=== PATIENT | female | born 1940 | race Caucasian/White ===

== ENCOUNTER 2022-10-13 12:09 | Outpatient (CLI) | payer MEDICARE, SELFPAY ==
--- NOTE | ~2022-10-13 | XR_ITS ---
Left foot Technique: AP, oblique, and lateral views were obtained. Clinical History: Pain Findings: No acute fracture or dislocation is seen. Osseous alignment is anatomic. Joint spaces are p reserved without erosive or degenerative change. Mild soft tissue swelling noted dorsally over the fo refoot. Impression: No fracture or dislocation. Mild dorsal soft tissue swelling at the forefoot. Reviewed, dictated and finalized at location [] RESS SUPERVISOR Impression: No fracture or dislocation. Mild dorsal soft tissue swelling at the forefoot.
--- NOTE | ~2022-10-13 | XR_ITS ---
Left ankle Technique: AP, oblique, and lateral views were obtained. Clinical History: Pain Findings: No acute fracture or dislocation is seen. Osseous alignment is anatomic. Ankle mortise and other visualized joint spaces are preserved. Mild diffuse subcutaneous soft tissue edema noted. Impression: No fracture or dislocation. Mild diffuse subcutaneous soft tissue edema. Reviewed, dictated and finalized at location [] NESS INTELLIGENCE MANAGER Impression: No fracture or dislocation. Mild diffuse subcutaneous soft tissue edema.
--- NOTE | ~2022-10-13 | US_ITS ---
EXAMINATION: US venous doppler [facility] DATE: 10/13/2022 13:27 INDICATION: Bilateral lower limb swelling TECHNIQUE: Turner scale images without and with compression and Doppler images of the bilateral lower e xtremity veins were obtained. COMPARISON: None FINDINGS: The right common femoral vein, profunda femoral vein, femoral vein, popliteal vein, peroneal trunk, p osterior tibial veins, and greater saphenous vein are patent. The left common femoral vein, profunda femoral vein, femoral vein, popliteal vein, peroneal trunk, po sterior tibial veins, and greater saphenous vein are patent. IMPRESSION: 1. Patent bilateral lower extremity veins. No evidence of deep venous thrombosis. Reviewed, dictated and finalized at location A. NTURE CHALLENGE INSTRUCTOR IMPRESSION: 1. Patent bilateral lower extremity veins. No evidence of deep venous thrombosi s.
== END 2022-10-13 12:10 | disposition home or self-care (01) ==
PROVIDERS: PCP Family Medicine; Visit Provider Nurse Practitioner Family
DX: M79.605 Pain in left leg (principal); M79.89 Other specified soft tissue disorders; Z86.73 Personal history of transient ischemic attack (TIA), and cerebral infarction without residual deficits; M79.672 Pain in left foot; S99.922A Unspecified injury of left foot, initial encounter
CPT/HCPCS: 73610; 73630; 93970

== ENCOUNTER 2023-03-01 00:34 | Inpatient (IN) | payer MEDICARE, SELFPAY ==
[2023-03-01] VITALS (48 sets, daily range): BP systolic 113–164; BP diastolic 52–92; PULSE 54–98; RESP 14–26; TEMP 37–39.6; O2SAT 96–100; BMI 17.9
--- NOTE | ~2023-03-01 | XR_ITS ---
Portable chest x-ray Comparison: None Clinical History: Altered mental status Findings: There is probable mild haziness in the left lung base. There is mild diffuse interstitial prominence. Cardiomediastinal silhouette is borderline enlarged. Bones and soft tissues are unremark able. Impression: COPD and/or mild chronic interstitial disease. Mild haziness left lung base. Correlate for left lower lobe pneumonia or atelectatic change. Reviewed, dictated and finalized at location . Impression: COPD and/or mild chronic interstitial disease. Mild haziness left lung base. Correlate for left lower lobe pneumonia or atelec tatic change.
--- NOTE | ~2023-03-01 | XR_ITS ---
AP view of the pelvis Clinical history: Pain Findings: No acute fracture or dislocation is seen. Osseous alignment is anatomic. Bilateral hip and SI joint spaces are preserved. Soft tissues are unremarkable. Impression: No significant abnormality is seen. Reviewed, dictated and finalized at location M. Impression: No significant abnormality is seen.
--- NOTE | ~2023-03-01 | CT_ITS ---
CT head without contrast Indication: Altered mental status Technique: Serial scans were obtained through the brain without the administration of contrast. Dose reduction technique was used on this scan by utilizing automated exposure control and iterative recon struction technique. The dose-length product (DLP) was 605.33 mGy-cm. Findings: There is no evidence of intracranial hemorrhage, mass lesion, or acute infarct. The ventri cles and subarachnoid spaces are dilated, consistent with minimal atrophy. Low attenuation regions a re seen within the periventricular white matter bilaterally, likely representing changes from chronic microvascular ischemic disease. There is no evidence of edema, mass effect or midline shift. The v isualized paranasal sinuses and mastoid air cells are clear. Impression: No intracranial hemorrhage, mass, or acute infarct. Atrophy and chronic white matter changes, as above. Reviewed, dictated and finalized at location . Impression: No intracranial hemorrhage, mass, or acute infarct. Atrophy and chronic white matter changes, as above.
--- NOTE | 2023-03-01 03:36 | ECG_ITS ---
Measurements Intervals [place] Rate: 75 P: 60 AR: 150 QRS: 71 QRSD: 85 T: 57 QT: 398 QTc: 447 Interpretive Statements SINUS RHYTHM FREQUENT ATRIAL PREMATURE COMPLEXES LEFT VENTRICULAR HYPERTROPHY AND ST-T CHANGE BORDERLINE ST ABNORMALITY- ANTERIOR LEADS BORDERLINE ECG BASELINE ARTIFACT- I, II, III, AVR, AVL, AVF, V1-V2 NO PREVIOUS ECG AVAILABLE FOR COMPARISON Electronically Signed On 03-01-2023 6:19:14 CDT by Kiel Calderon D.O.
[2023-03-01] MEDS: SODIUM CHLORIDE 0.9% IV 1,000 ML 999 ML IV CONT (04:02)
[2023-03-01 04:09] LABS: Basophils Absolute Auto 0.1 K/mm3 (0.0-0.1); Eosinophils Percent Auto 0.6 % (0-4.4); Hematocrit 42.4 % (37.0-47.0); Immature Granulocyte Absolute 0.04 K/mm3 (0.00-0.031); Immature Granulocyte Percent A 0.8 % (0-0.5); Immature Platelet Fraction Pct 4.5 % (0.9-11.2); Lymphocytes Absolute Auto 0.49 K/mm3 (0.9-3.2); Mean Corpuscular Hemoglobin 30.6 pg (26-34); Mean Corpuscular Volume 92.8 fl (80-100); Mean Platelet Volume 10.4 fl (7.4-10.4); Monocytes Percent Auto 19.4 % (2.6-8.5); Neutrophils Absolute Auto 3.3 K/mm3 (1.3-6.7); Neutrophils Percent Auto 68.2 % (45.5-73.1); Platelet Count Result 139 k/mm3 (150-375); Red Blood Count 4.57 M/mm3 (4.2-5.4); Red Cell Distribution Width 14.6 % (11.5-14.5); White Blood Count 4.9 K/mm3 (4.5-10.0)
[2023-03-01 04:21] LABS: INR 1.2; Prothrombin Time 15.4 Seconds (11.1-14.7)
[2023-03-01 04:23] LABS: Partial Thromboplastin Time 32.8 SECONDS (22.3-36.8)
[2023-03-01 04:24] LABS: Alanine Aminotransferase 21 U/L (6-35); Albumin Level 4.4 g/dL (3.5-5.1); Alkaline Phosphatase 124 U/L (38-126); Anion Gap 7 mmol/L (8-16); Aspartate Amino Transferase 51 U/L (14-36); Bilirubin,Total 1.1 mg/dL (0.2-1.3); Blood Urea Nitrogen 17 mg/dL (7-17); Calcium 8.6 mg/dL (8.4-10.2); Carbon Dioxide 27 mmol/L (22-30); Chloride 100 mmol/L (98-107); Creatine Kinase 999 U/L (30-135); Estimated Glomerular Filt Rate > 60; Glucose 91 mg/dL (65-110); Lipase 136 U/L (23-300); Phosphorus 2.9 mg/dL (2.5-4.5); Sodium 134 mmol/L (137-145)
[2023-03-01 04:29] LABS: Magnesium 2.1 mg/dL (1.6-2.3); Potassium 3.8 mmol/L (3.4-5.0)
[2023-03-01 04:33] LABS: Troponin I 0.055 ng/mL (0.000-0.034)
[2023-03-01 04:44] LABS: Influenza A QL RT-PCR Negative (Negative); Influenza B QL RT-PCR Negative (Negative); RSV RNA, RT-PCR Negative (Negative); SARS-CoV-2 RNA PCR Positive (Negative)
--- NOTE | 2023-03-01 05:01 | ED.GENADULT ---
HPI - General Adult General Chief complaint: Fall Stated complaint: FOUND ON FLOOR Time Seen by Provider: 03/01/23 01:20 History of Present Illness HPI narrative: This is an 82-year-old female with a history of vascular dementia presenting to the ED with a chief complaint of weakness. per the patient's son at 11:00 a.m. she started to become slightly confused and stuttering. He noticed that she was walking slightly hunched over throughout the day.Throughout the day she stayed confused and he is roomed was sundowning which has occurred with her before. However 11:45 p.m. he found her laying on the floor next to her bed. She is A&O x1 which is essentially her baseline. The patient herself is very confused and frail-appearing she does not have any complaints but cannot contribute meaningfully to the history. Related Data Home Medications Medication Instructions Recorded Confirmed cholecalciferol (vitamin D3) 50 25 mcg PO DAILY 12/16/22 12/16/22 mcg (2,000 unit) capsule Allergies Allergy/AdvReac Type Severity Reaction Status Date / Time hydralazine Allergy Unknown Verified 12/16/22 09:59 sulfamethoxazole Allergy Unknown Verified 12/16/22 09:59 trimethoprim Allergy Unknown Verified 12/16/22 09:59 [facility] Past Medical History Medical History Body mass index (BMI) less than 16.5 Body mass index (BMI) less than 20 Dementia Dysphagia Hypertension Hyperthyroidism Leg weakness, bilateral Low vitamin D level Severe mitral regurgitation Thyroid nodule Surgical History Surgical History History of laparoscopic appendectomy History of tonsillectomy and adenoidectomy Hx of cholecystectomy Family History Family History Father Thyroid cancer Mother Arthritis Sibling Agent [place] poisoning Leukemia Other Diabetes mellitus Hypertension Social History Social History Smoking status: Never smoker Second hand tobacco smoke exposure: Yes Alcohol intake: never Substance use: never Substance use type: does not use Lack of Transportation: No Lack of Food: Never True Current Housing: I Have Housing Concerned About Future Housing: No Difficulty Paying Gas/Electric Bills: No Difficulty Paying for Meds: No Currently Unemployed: No Education: High School Diploma/GED Difficulty w/ Childcare or Family Care: No Living arrangements: with family Occupation/Education: 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 EYES: EOMI, NOSE: Atraumatic NECK: Trachea midline RESPIRATORY: No increased rate of breathing, clear to auscultation CARDIOVASCULAR: RRR,, no peripheral edema ABDOMINAL: Non-distended, soft MUSCULOSKELETAl: No obvious deformities NEURO: Alert. Moving 4/4 extremities SKIN:: Warm, dry. Normal color PSYCHIATRIC: Normal affect NIH Stroke Scale/Score (NIHSS) from [facility]. on 03/01/2023 All calculations should be rechecked by clinician prior to use RESULT SUMMARY: 1 points NIH Stroke Scale INPUTS: 1A: Level of consciousness ?> 0 = Alert; keenly responsive 1B: Ask month and age ?> 1 = 1 question right 1C: 'Blink eyes' & 'squeeze hands' ?> 0 = Performs both tasks 2: Horizontal extraocular movements ?> 0 = Normal 3: Visual betancourt ?> 0 = No visual loss 4: Facial palsy ?> 0 = Normal symmetry 5A: Left arm motor drift ?> 0 = No drift for 10 seconds 5B: Right arm motor drift ?> 0 = No drift for 10 seconds 6A: Left leg motor drift ?> 0 = No drift for 5 seconds 6B: Right leg motor drift ?> 0 = No drift for 5 seconds 7: Limb Ataxia ?> 0 = No ataxia 8:
[2023-03-01 05:16] LABS: Appearance Urine Cloudy (Clear); Bacteria Urine None Seen /hpf; Bilirubin Urine Negative (Negative); Blood Urine 2+ (Negative); Color Urine Yellow (Yellow); Glucose Urine UA Negative (Negative); Ketones Urine Negative (Negative); Leukocyte Esterase Ur 2+ LEU/UL (Negative); Nitrate Urine Negative (Negative); Non Pathogenic Casts 0-2; Protein Urine 1+ mg/dL (Negative); Specific Grav Ur 1.019 (1.001-1.035); Squamous Epithelial Cell Urine None seen /hpf (Few); Urobilinogen Urine 0.2 mg/dL (<2.0)
[2023-03-01 05:23] LABS: Add Urine Microscopic? YES
[2023-03-01 07:27] LABS: Troponin I 0.054 ng/mL (0.000-0.034)
--- NOTE | 2023-03-01 11:15 | ADMGEN ---
This patient, Gege Ortiz, was admitted to IMU Room 207-01. Patient/family oriented to hospital policies and general routines including ID bracelet, bed and alarms, visiting hours, pain management, procedures, bathroom and other care routines, personal items, smoking policy, room service/diet, and visiting hours. Information on how to activate the Rapid Response Team has been discussed. Patient/Family are encouraged to report perceived risks to care and to ask questions if they do not understand what they are told or what they should do.
--- NOTE | 2023-03-01 11:48 | ECG_ITS ---
Measurements Intervals [place] Rate: 60 P: [place]: 0 QRS: 71 QRSD: 85 T: 61 QT: 447 QTc: 447 Interpretive Statements SINUS RHYTHM WITH SINUS ARRHYTHMIA WITH SHORT [place] INTERVAL ATRIAL PREMATURE COMPLEX VOLTAGE CRITERIA FOR LVH BORDERLINE ECG COMPARED TO ECG 03/01/2023 04:21:40 NO SIGNIFICANT CHANGES Electronically Signed On 03-01-2023 13:39:59 CDT by Kiel Calderon D.O.
--- NOTE | 2023-03-01 17:14 | PM.IMHP ---
H&P: HPI History of Present Illness Date/Time: 03/01/23 17:14 Chief Complaint: fall Narrative: Pt is a poor historian, pt found on the floor Appears confused and weak Pt has history of dementia Tests here show CPK is 1000. troponin is 0.055. EKG shows - ? Sinus rhythm with occasional PACs UA showed 6-10 white blood cells with 2+ leuk esterase and no bacteria.? ? Chest x-ray showed no? obvious infiltrates. ? Pelvic x-ray revealed no displaced fracture. CT head shows atrophy Pt found to have covid on covid panel Review of Systems Review of Systems: Confused and weak no specific complaints All 14 systems are reviewed except those listed PMFSH Past Medical History Medical History Body mass index (BMI) less than 16.5 Body mass index (BMI) less than 20 Dementia Dysphagia Hypertension Hyperthyroidism Leg weakness, bilateral Low vitamin D level Severe mitral regurgitation Thyroid nodule Surgical History Surgical History History of laparoscopic appendectomy History of tonsillectomy and adenoidectomy Hx of cholecystectomy Family History Family History Father Thyroid cancer Mother Arthritis Sibling Agent [place] poisoning Leukemia Other Diabetes mellitus Hypertension Social History Social History Smoking status: Never smoker Second hand tobacco smoke exposure: Yes Alcohol intake: never Substance use: never Substance use type: does not use Lack of Transportation: No Lack of Food: Never True Current Housing: I Have Housing Concerned About Future Housing: No Difficulty Paying Gas/Electric Bills: No Difficulty Paying for Meds: No Currently Unemployed: No Education: High School Diploma/GED Difficulty w/ Childcare or Family Care: No Living arrangements: with family Occupation/Education: retired 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 Gender identity (if verbalized by the patient): Female Spiritual care concerns: No Meds Home Medications and Allergies Home Medications Medication Instructions Recorded Confirmed Type cholecalciferol (vitamin D3) 50 25 mcg PO DAILY 12/16/22 03/01/23 History mcg (2,000 unit) capsule metoprolol tartrate 25 mg tablet 25 mg PO BID #180 tabs 12/16/22 03/01/23 Rx aspirin 81 mg tablet,delayed 81 mg PO DAILY 03/01/23 03/01/23 History release (Adult Aspirin Regimen) Allergies Allergy/AdvReac Type Severity Reaction Status Date / Time hydralazine Allergy Unknown Verified 12/16/22 09:59 sulfamethoxazole Allergy Unknown Verified 12/16/22 09:59 trimethoprim Allergy Unknown Verified 12/16/22 09:59 Vital Signs Vital Signs - 24 hr 03/01/23 00:37 03/01/23 00:41 03/01/23 00:43 Temperature 37.1 C Pulse Rate 65 68 Respiratory Rate 18 24 H 22 H Blood Pressure 132/87 125/65 Pulse Oximetry 98 99 98 Oxygen Delivery Room Air 03/01/23 00:46 03/01/23 01:00 03/01/23 01:15 Temperature Pulse Rate 68 63 Respiratory Rate 15 22 H Blood Pressure Pulse Oximetry 98 97 98 Oxygen Delivery 03/01/23 01:30 03/01/23 01:31 03/01/23 01:51 Temperature Pulse Rate 63 65 62 Respiratory Rate 23 H 24 H 20 Blood Pressure 120/52 L Pulse Oximetry 97 97 Oxygen Delivery 03/01/23 02:02 03/01/23 02:15 03/01/23 02:33 Temperature Pulse Rate 64 67 74 Respiratory Rate 23 H 23 H 24 H Blood Pressure Pulse Oximetry Oxygen Delivery 03/01/23 02:52 03/01/23 03:00 03/01/23 03:22 Temperature Pulse Rate 73 90 92 Respiratory Rate 23 H 23 H 22 H Blood Pressure Pulse Oximetry Oxygen Delivery 03/01/23 03:30 03/01/23 03:45 03/01/23 04:16 Temperature Pulse Rate 92 79 75 Respirat
[2023-03-01] MEDS: METOPROLOL TARTRATE INJ 5 MG/5 ML VIAL IV PUSH (23:11)
[2023-03-02] VITALS (11 sets, daily range): BP systolic 115–163; BP diastolic 52–93; PULSE 47–78; RESP 16–22; TEMP 36.3–37.6; O2SAT 95–100; BMI 16.5
[2023-03-02 06:41] LABS: Hematocrit 43.1 % (37.0-47.0); Hemoglobin 13.8 g/dL (12.0-15.0); Immature Platelet Fraction Pct 4.9 % (0.9-11.2); Mean Corpuscular Hemoglobin 30.2 pg (26-34); Mean Corpuscular Volume 94.3 fl (80-100); Mean Platelet Volume 10.1 fl (7.4-10.4); Platelet Count Result 117 k/mm3 (150-375); Red Blood Count 4.57 M/mm3 (4.2-5.4); Red Cell Distribution Width 14.6 % (11.5-14.5)
[2023-03-02 06:58] LABS: Anion Gap 5 mmol/L (8-16); Blood Urea Nitrogen 17 mg/dL (7-17); Carbon Dioxide 29 mmol/L (22-30); Chloride 103 mmol/L (98-107); Estimated CRCL calculation 30 ml/min; Estimated Glomerular Filt Rate > 60; Glucose 85 mg/dL (65-110); Potassium 3.8 mmol/L (3.4-5.0); Sodium 137 mmol/L (137-145)
[2023-03-02 07:19] LABS: Creatine Kinase 5042 U/L (30-135)
[2023-03-02] MEDS: DEXAMETHASONE 2 MG TABLET 6 MG PO (09:56)
[2023-03-02] MEDS: METOPROLOL TARTRATE 25 MG TABLET PO ×2 (09:57→20:59)
[2023-03-02] MEDS: BENZONATATE 100 MG CAPSULE PO ×3 (09:57→16:56)
[2023-03-02] MEDS: ASPIRIN 81 MG ENTERIC TABLET PO (09:57)
--- NOTE | 2023-03-02 15:19 | PM.IMPN ---
Progress Note: A&P Assessment and Plan (1) Delirium: Code(s): R41.0 - Disorientation, unspecified Status: Acute Assessment and Plan: Confusion secondary to covid and UTI Supportive care Isolation room (2) Elevated troponin: Code(s): R77.8 - Other specified abnormalities of plasma proteins Status: Acute Assessment and Plan: monitor labs (3) COVID: Code(s): U07.1 - COVID-19 Status: Acute Assessment and Plan: Supportive care steroids and tessalon perles pt not needing oxygen presently sats are good (4) Fall: Code(s): W19.XXXA - Unspecified fall, initial encounter Status: Acute Assessment and Plan: Encourage IV fluids and oral hydration watch CK levels Falls precautions (5) UTI (urinary tract infection): Code(s): N39.0 - Urinary tract infection, site not specified Status: Acute Assessment and Plan: IV rocephin ordered follow UC Plan Thrombocytopenia worsening continue to monitor Elevated troponin flat CK level at worsened. Gentle IV fluid order Subjective Date/time seen: 03/02/23 15:19 Interval history: Frail looking. Weak voice. Fever improving. Hoarse voice. Denies shortness of breath. Review of Systems Review of Systems: All systems reviewed & are unremarkable except as noted in HPI and below Exam Narrative: APPEARANCE:? Patient appears frail/thin,? A&O x 2 Head: atraumatic. Normocephalic EYES:? EOMI, NOSE: Atraumatic NECK: Trachea midline RESPIRATORY: No increased rate of breathing, diminished breath sound bilaterally CARDIOVASCULAR: RRR,, no peripheral edema ABDOMINAL: Non-distended, soft MUSCULOSKELETAl: No obvious deformities NEURO: Alert. Moving 4/4 extremities SKIN:: Warm, dry. Normal color PSYCHIATRIC: Normal affect Objective Data Vital Signs Vital Signs: Vital Signs - 24 hr 03/01/23 16:00 03/01/23 16:00 03/01/23 18:00 Temperature 99.3 F Pulse Rate 98 72 76 Respiratory Rate 14 Blood Pressure 146/60 H Pulse Oximetry 100 Oxygen Delivery 03/01/23 20:00 03/01/23 22:15 03/01/23 23:11 Temperature 103 F H 103.2 F H Pulse Rate 77 91 Respiratory Rate 18 Blood Pressure 164/74 H Pulse Oximetry 96 Oxygen Delivery 03/02/23 00:00 03/01/23 22:45 03/01/23 20:00 Temperature 98.8 F 102 F H Pulse Rate 55 L Respiratory Rate 16 Blood Pressure 115/61 Pulse Oximetry 97 96 Oxygen Delivery Room Air 03/02/23 00:00 03/01/23 20:00 03/01/23 22:00 Temperature Pulse Rate 79 67 Respiratory Rate Blood Pressure Pulse Oximetry 97 Oxygen Delivery Room Air 03/02/23 02:08 03/02/23 00:00 03/02/23 03:57 Temperature Pulse Rate 50 L 62 Respiratory Rate Blood Pressure Pulse Oximetry 96 Oxygen Delivery Room Air 03/02/23 04:00 03/02/23 04:00 03/02/23 06:00 Temperature 97.9 F Pulse Rate 47 L 47 L 61 Respiratory Rate 16 Blood Pressure 136/52 L Pulse Oximetry 96 Oxygen Delivery 03/02/23 08:00 03/02/23 09:57 03/02/23 08:00 Temperature 97.8 F Pulse Rate 52 L 78 78 Respiratory Rate 16 16 Blood Pressure 153/62 H Pulse Oximetry 100 100 Oxygen Delivery Room Air 03/02/23 08:00 03/02/23 10:00 03/02/23 12:00 Temperature 99.7 F H Pulse Rate 60 71 71 Respiratory Rate 20 Blood Pressure 141/75 H Pulse Oximetry 99 Oxygen Delivery 03/02/23 12:00 03/02/23 12:00 Temperature Pulse Rate 60 Respiratory Rate Blood Pressure Pulse Oximetry Oxygen Delivery Room Air Intake/Output Intake/Output: Intake & Output 02/27/23 02/28/23 03/01/23 03/02/23 23:59 23:59 23:59 23:59 Intake Total 1200 420 Output Total 500 Balance 1200 -80 Meds/Results Medications: Active Medications Generic Name Dose Route Start Last Admin Trade Name Freq PRN Reason Stop Dose Admin Aspirin 81 mg 03/02/23 09:00 03/02/23 09:57 Aspirin 81 Mg Enteric Tablet PO 81 mg
[2023-03-02 16:20] LABS: CRP 4.6 mg/dL (<1.0)
--- NOTE | 2023-03-02 17:31 | PC.NURSE ---
This patient, Gege Otriz, was transferred to [[id number] ] on 03/02/23 at 1731. Personal belongings sent with patient. Report given to [Lisset RN ]. Appropriate documentation sent with patient.
[2023-03-02] MEDS: SODIUM CHLORIDE 0.9% IV 1,000 ML 100 ML IV CONT (18:25)
[2023-03-03] VITALS: BP 131/53; PULSE 52; RESP 20; TEMP 36.3; O2SAT 95
[2023-03-03 03:54] VITALS: BP 141/76; PULSE 66; RESP 18; TEMP 36.1; O2SAT 96
[2023-03-03] MEDS: SODIUM CHLORIDE 0.9% IV 1,000 ML 100 ML IV CONT (04:35)
[2023-03-03 07:08] LABS: Basophils Percent Auto 0.1 % (0.2-1.2); Hematocrit 41.6 % (37.0-47.0); Hemoglobin 13.6 g/dL (12.0-15.0); Immature Granulocyte Absolute 0.03 K/mm3 (0.00-0.031); Immature Granulocyte Percent A 0.3 % (0-0.5); Lymphocytes Percent Auto 10.3 % (18.3-44.2); Mean Corpuscular HGB Conc 32.7 g/dl (32-36); Mean Corpuscular Hemoglobin 30.2 pg (26-34); Mean Corpuscular Volume 92.4 fl (80-100); Mean Platelet Volume 10.9 fl (7.4-10.4); Monocytes Absolute Auto 0.9 K/mm3 (0.1-0.6); Monocytes Percent Auto 9.7 % (2.6-8.5); Neutrophils Percent Auto 79.6 % (45.5-73.1); Platelet Count Result 110 k/mm3 (150-375); Red Cell Distribution Width 14.6 % (11.5-14.5); White Blood Count 8.7 K/mm3 (4.5-10.0)
[2023-03-03 07:25] LABS: Alanine Aminotransferase 28 U/L (6-35); Albumin Level 3.2 g/dL (3.5-5.1); Alkaline Phosphatase 80 U/L (38-126); Anion Gap 3 mmol/L (8-16); Aspartate Amino Transferase 127 U/L (14-36); Bilirubin,Total 0.7 mg/dL (0.2-1.3); Blood Urea Nitrogen 21 mg/dL (7-17); Calcium 7.8 mg/dL (8.4-10.2); Carbon Dioxide 27 mmol/L (22-30); Chloride 107 mmol/L (98-107); Estimated CRCL calculation 34 ml/min; Estimated Glomerular Filt Rate > 60; Glucose 103 mg/dL (65-110); Magnesium 2.1 mg/dL (1.6-2.3); Potassium 4.3 mmol/L (3.4-5.0); Sodium 137 mmol/L (137-145)
[2023-03-03 07:32] LABS: Creatine Kinase 2706 U/L (30-135)
[2023-03-03 08:00] VITALS: BP 136/90; PULSE 68; RESP 20; TEMP 36.2; O2SAT 99
[2023-03-03 09:28] VITALS: PULSE 70
[2023-03-03] MEDS: DEXAMETHASONE 2 MG TABLET 6 MG PO (09:28)
[2023-03-03] MEDS: METOPROLOL TARTRATE 25 MG TABLET PO ×2 (09:28→21:16)
[2023-03-03] MEDS: BENZONATATE 100 MG CAPSULE PO ×3 (09:28→17:03)
[2023-03-03] MEDS: ASPIRIN 81 MG ENTERIC TABLET PO (09:29)
--- NOTE | 2023-03-03 13:07 | PM.IMPN ---
Progress Note: A&P Assessment and Plan (1) Delirium: Code(s): R41.0 - Disorientation, unspecified Status: Acute Assessment and Plan: Confusion secondary to covid and UTI Supportive care Isolation room (2) Elevated troponin: Code(s): R77.8 - Other specified abnormalities of plasma proteins Status: Acute Assessment and Plan: monitor labs (3) COVID: Code(s): U07.1 - COVID-19 Status: Acute Assessment and Plan: Supportive care steroids and tessalon perles pt not needing oxygen presently sats are good (4) Fall: Code(s): W19.XXXA - Unspecified fall, initial encounter Status: Acute Assessment and Plan: Encourage IV fluids and oral hydration watch CK levels Falls precautions (5) UTI (urinary tract infection): Code(s): N39.0 - Urinary tract infection, site not specified Status: Acute Assessment and Plan: IV rocephin initiated but now stopped urine culture no growth Plan Thrombocytopenia worsening continue to monitor Elevated troponin flat CK level at worsened. Gentle IV fluid order now improving. Will lower the normal saline to 40 cc an hour Subjective Date/time seen: 03/03/23 13:07 Interval history: No overnight events. Feeling stronger. She does not remember me from yesterday. Afebrile. Review of Systems Review of Systems: All systems reviewed & are unremarkable except as noted in HPI and below Exam Narrative: APPEARANCE:? Patient appears frail/thin,? A&O x 2 Head: atraumatic. Normocephalic EYES:? EOMI, NOSE: Atraumatic NECK: Trachea midline RESPIRATORY: No increased rate of breathing, diminished breath sound bilaterally CARDIOVASCULAR: RRR,, no peripheral edema ABDOMINAL: Non-distended, soft MUSCULOSKELETAl: No obvious deformities NEURO: Alert. Moving 4/4 extremities SKIN:: Warm, dry. Normal color PSYCHIATRIC: Normal affect Objective Data Vital Signs Vital Signs: Vital Signs - 24 hr 03/02/23 17:10 03/02/23 20:00 03/02/23 22:27 Temperature 98.2 F 97.3 F L Pulse Rate 71 66 Respiratory Rate 22 H 16 Blood Pressure 143/93 H 163/82 H Pulse Oximetry 95 100 Oxygen Delivery Room Air 03/03/23 00:00 03/03/23 03:54 03/03/23 09:28 Temperature 97.3 F L 97 F L Pulse Rate 52 L 66 70 Respiratory Rate 20 18 Blood Pressure 131/53 L 141/76 H Pulse Oximetry 95 96 Oxygen Delivery 03/03/23 08:00 03/03/23 08:00 Temperature 97.2 F L Pulse Rate 68 Respiratory Rate 20 Blood Pressure 136/90 Pulse Oximetry 99 Oxygen Delivery Room Air Intake/Output Intake/Output: Intake & Output 02/28/23 03/01/23 03/02/23 03/03/23 23:59 23:59 23:59 23:59 Intake Total 3384 416 0345 Output Total 500 Balance 1200 -30 1236 Meds/Results Medications: Active Medications Generic Name Dose Route Start Last Admin Trade Name Freq PRN Reason Stop Dose Admin Aspirin 81 mg 03/02/23 09:00 03/03/23 09:29 Aspirin 81 Mg Enteric Tablet PO 81 mg DAILY MADDIE Administration Benzonatate 100 mg 03/02/23 09:00 03/03/23 12:29 Benzonatate 100 Mg Capsule PO 100 mg TID MADDIE Administration Dexamethasone 6 mg 03/02/23 08:00 03/03/23 09:28 Dexamethasone 2 Mg Tablet PO 03/11/23 08:01 6 mg DAILY@0800 MADDIE Administration Sodium Chloride 1,000 mls @ 100 mls/hr 03/02/23 15:25 03/03/23 04:35 Normal Saline Iv IV CONT 100 mls/hr .Q10H MADDIE Administration Metoprolol Tartrate 25 mg 03/01/23 21:51 03/03/23 09:28 Metoprolol Tartrate 25 Mg Tablet PO 25 mg Q12HR MADDIE Administration Radiology Results: ITS Impressions Head CT 03/01/23 05:41 Impression: No intracranial hemorrhage, mass, or acute infarct. Atrophy and chronic white matter changes, as above. Chest X-Ray 03/01/23 06:08 Impression: COPD and/or mild chronic interstitial disease. Mild haziness left lung base. Correlate for left lower lobe pneumonia or atelectatic
[2023-03-03 16:00] VITALS: BP 143/92; PULSE 64; RESP 20; TEMP 36.9; O2SAT 98
[2023-03-03] MEDS: SODIUM CHLORIDE 0.9% IV 1,000 ML 40 ML IV CONT (17:03)
[2023-03-03 21:52] VITALS: BP 134/96; PULSE 69; RESP 14; TEMP 36.7; O2SAT 99
[2023-03-04 05:49] VITALS: BP 172/83; PULSE 77; RESP 16; TEMP 36.7; O2SAT 100
[2023-03-04 06:33] LABS: Basophils Percent Auto 0.1 % (0.2-1.2); Hematocrit 44.8 % (37.0-47.0); Hemoglobin 14.6 g/dL (12.0-15.0); Immature Granulocyte Absolute 0.03 K/mm3 (0.00-0.031); Immature Granulocyte Percent A 0.4 % (0-0.5); Immature Platelet Fraction Pct 5.9 % (0.9-11.2); Lymphocytes Absolute Auto 1.06 K/mm3 (0.9-3.2); Lymphocytes Percent Auto 13.5 % (18.3-44.2); Mean Corpuscular HGB Conc 32.6 g/dl (32-36); Mean Corpuscular Hemoglobin 30.2 pg (26-34); Mean Corpuscular Volume 92.6 fl (80-100); Mean Platelet Volume 10.7 fl (7.4-10.4); Monocytes Absolute Auto 0.7 K/mm3 (0.1-0.6); Monocytes Percent Auto 9.1 % (2.6-8.5); Neutrophils Absolute Auto 6.1 K/mm3 (1.3-6.7); Neutrophils Percent Auto 76.9 % (45.5-73.1); Platelet Count Result 131 k/mm3 (150-375); Red Blood Count 4.84 M/mm3 (4.2-5.4); Red Cell Distribution Width 14.6 % (11.5-14.5); White Blood Count 7.9 K/mm3 (4.5-10.0)
[2023-03-04 06:50] LABS: Alanine Aminotransferase 55 U/L (6-35); Albumin Level 3.8 g/dL (3.5-5.1); Alkaline Phosphatase 90 U/L (38-126); Anion Gap 9 mmol/L (8-16); Aspartate Amino Transferase 140 U/L (14-36); Bilirubin,Total 0.9 mg/dL (0.2-1.3); Blood Urea Nitrogen 23 mg/dL (7-17); Calcium 8.4 mg/dL (8.4-10.2); Carbon Dioxide 26 mmol/L (22-30); Chloride 103 mmol/L (98-107); Creatine Kinase 1415 U/L (30-135); Estimated CRCL calculation 39 ml/min; Estimated Glomerular Filt Rate > 60; Glucose 113 mg/dL (65-110); Magnesium 2.1 mg/dL (1.6-2.3); Potassium 3.7 mmol/L (3.4-5.0); Sodium 138 mmol/L (137-145)
[2023-03-04 08:47] VITALS: PULSE 78
[2023-03-04] MEDS: BENZONATATE 100 MG CAPSULE PO (08:47)
[2023-03-04] MEDS: DEXAMETHASONE 2 MG TABLET 6 MG PO (08:47)
[2023-03-04] MEDS: ASPIRIN 81 MG ENTERIC TABLET PO (08:47)
[2023-03-04] MEDS: METOPROLOL TARTRATE 25 MG TABLET PO ×2 (08:47→21:03)
--- NOTE | 2023-03-04 13:51 | PM.IMPN ---
Progress Note: A&P Assessment and Plan (1) Delirium: Code(s): R41.0 - Disorientation, unspecified Status: Acute Assessment and Plan: Confusion secondary to covid and UTI Supportive care Isolation room (2) Elevated troponin: Code(s): R77.8 - Other specified abnormalities of plasma proteins Status: Acute Assessment and Plan: monitor labs (3) COVID: Code(s): U07.1 - COVID-19 Status: Acute Assessment and Plan: Supportive care steroids and tessalon perles pt not needing oxygen presently sats are good (4) Fall: Code(s): W19.XXXA - Unspecified fall, initial encounter Status: Acute Assessment and Plan: Encourage IV fluids and oral hydration watch CK levels Falls precautions (5) UTI (urinary tract infection): Code(s): N39.0 - Urinary tract infection, site not specified Status: Acute Assessment and Plan: IV rocephin initiated but now stopped urine culture no growth Plan Thrombocytopenia continue to monitor improving Elevated troponin flat CK level at worsened. Gentle IV fluid order now improving. Will stop IV fluid today. CK level continues to improve DVT prophylaxis start Lovenox Subjective Date/time seen: 03/04/23 13:51 Interval history: No overnight events. Bit confused. Thinks he is at home. Remains on room air. Review of Systems Review of Systems: All systems reviewed & are unremarkable except as noted in HPI and below Exam Narrative: APPEARANCE:? Patient appears frail/thin,? A&O x 1 Head: atraumatic. Normocephalic EYES:? EOMI, NOSE: Atraumatic NECK: Trachea midline RESPIRATORY: No increased rate of breathing, diminished breath sound bilaterally CARDIOVASCULAR: RRR,, no peripheral edema ABDOMINAL: Non-distended, soft MUSCULOSKELETAl: No obvious deformities NEURO: Alert. Moving 4/4 extremities SKIN:: Warm, dry. Normal color PSYCHIATRIC: Normal affect Objective Data Vital Signs Vital Signs: Vital Signs - 24 hr 03/03/23 16:00 03/03/23 21:52 03/03/23 20:00 Temperature 98.4 F 98.1 F Pulse Rate 64 69 Respiratory Rate 20 14 Blood Pressure 143/92 H 134/96 H Pulse Oximetry 98 99 Oxygen Delivery Room Air 03/04/23 05:49 03/04/23 08:47 03/04/23 11:12 Temperature 98.1 F Pulse Rate 77 78 Respiratory Rate 16 Blood Pressure 172/83 H Pulse Oximetry 100 Oxygen Delivery Room Air 03/04/23 08:00 Temperature Pulse Rate Respiratory Rate Blood Pressure Pulse Oximetry Oxygen Delivery Room Air Intake/Output Intake/Output: Intake & Output 03/01/23 03/02/23 03/03/23 03/04/23 23:59 23:59 23:59 23:59 Intake Total 5253 911 1256 120 Output Total 500 400 Balance 1200 -30 3416 -280 Meds/Results Medications: Active Medications Generic Name Dose Route Start Last Admin Trade Name Yuryq PRN Reason Stop Dose Admin Aspirin 81 mg 03/02/23 09:00 03/04/23 08:47 Aspirin 81 Mg Enteric Tablet PO 81 mg DAILY MADDIE Administration Benzonatate 100 mg 03/02/23 09:00 03/04/23 08:47 Benzonatate 100 Mg Capsule PO 100 mg TID MADDIE Administration Dexamethasone 6 mg 03/02/23 08:00 03/04/23 08:47 Dexamethasone 2 Mg Tablet PO 03/11/23 08:01 6 mg DAILY@0800 MADDIE Administration Sodium Chloride 1,000 mls @ 40 mls/hr 03/02/23 15:25 03/03/23 17:03 Normal Saline Iv IV CONT 40 mls/hr .Q24H MADDIE Administration Metoprolol Tartrate 25 mg 03/01/23 21:51 03/04/23 08:47 Metoprolol Tartrate 25 Mg Tablet PO 25 mg Q12HR MADDIE Administration Radiology Results: ITS Impressions Head CT 03/01/23 05:41 Impression: No intracranial hemorrhage, mass, or acute infarct. Atrophy and chronic white matter changes, as above. Chest X-Ray 03/01/23 06:08 Impression: COPD and/or mild chronic interstitial disease. Mild haziness left lung base. Correlate for left lower lobe pneumonia or atelectatic change. Pelvis
[2023-03-04 14:00] VITALS: BP 157/97; PULSE 76; RESP 20; TEMP 36.7; O2SAT 98
[2023-03-04] MEDS: OLANZapine DISPERTAB 5 MG 2.5 MG PO (21:02)
[2023-03-04 21:03] VITALS: PULSE 108
[2023-03-04 21:53] VITALS: BP 131/76; PULSE 108; RESP 20; TEMP 36.6; O2SAT 93
[2023-03-05 06:00] VITALS: BP 157/74; PULSE 49; RESP 20; TEMP 36.5; O2SAT 100
[2023-03-05 06:32] LABS: Basophils Percent Auto 0.2 % (0.2-1.2); Hematocrit 42.9 % (37.0-47.0); Hemoglobin 14.1 g/dL (12.0-15.0); Immature Granulocyte Absolute 0.04 K/mm3 (0.00-0.031); Immature Granulocyte Percent A 0.7 % (0-0.5); Immature Platelet Fraction Pct 6.3 % (0.9-11.2); Lymphocytes Absolute Auto 0.95 K/mm3 (0.9-3.2); Lymphocytes Percent Auto 17.2 % (18.3-44.2); Mean Corpuscular HGB Conc 32.9 g/dl (32-36); Mean Corpuscular Hemoglobin 30.7 pg (26-34); Mean Corpuscular Volume 93.3 fl (80-100); Mean Platelet Volume 10.7 fl (7.4-10.4); Monocytes Absolute Auto 0.5 K/mm3 (0.1-0.6); Monocytes Percent Auto 8.7 % (2.6-8.5); Neutrophils Percent Auto 73.2 % (45.5-73.1); Platelet Count Result 131 k/mm3 (150-375); Red Cell Distribution Width 14.6 % (11.5-14.5); White Blood Count 5.5 K/mm3 (4.5-10.0)
[2023-03-05 06:41] LABS: Alanine Aminotransferase 33 U/L (6-35); Albumin Level 3.2 g/dL (3.5-5.1); Alkaline Phosphatase 73 U/L (38-126); Anion Gap 3 mmol/L (8-16); Aspartate Amino Transferase 100 U/L (14-36); Bilirubin,Total 0.7 mg/dL (0.2-1.3); Blood Urea Nitrogen 24 mg/dL (7-17); Calcium 8.2 mg/dL (8.4-10.2); Carbon Dioxide 29 mmol/L (22-30); Chloride 108 mmol/L (98-107); Creatine Kinase 640 U/L (30-135); Estimated CRCL calculation 37 ml/min; Estimated Glomerular Filt Rate > 60; Glucose 124 mg/dL (65-110); Magnesium 2.3 mg/dL (1.6-2.3); Potassium 4.1 mmol/L (3.4-5.0); Sodium 140 mmol/L (137-145)
[2023-03-05] MEDS: BENZONATATE 100 MG CAPSULE PO ×2 (08:32→16:06)
[2023-03-05] MEDS: DEXAMETHASONE 2 MG TABLET 6 MG PO (08:32)
[2023-03-05] MEDS: ENOXAPARIN 40 MG/0.4 ML SYRINGE SUB-Q (08:32)
[2023-03-05 08:33] VITALS: PULSE 52
[2023-03-05] MEDS: METOPROLOL TARTRATE 25 MG TABLET PO ×2 (08:33→21:05)
[2023-03-05] MEDS: ASPIRIN 81 MG ENTERIC TABLET PO (08:33)
[2023-03-05 14:00] VITALS: BP 171/77; PULSE 60; RESP 16; TEMP 36.3; O2SAT 100
--- NOTE | 2023-03-05 14:06 | PM.IMPN ---
Progress Note: A&P Assessment and Plan (1) Delirium: Code(s): R41.0 - Disorientation, unspecified Status: Acute Assessment and Plan: Confusion secondary to covid and UTI Supportive care Isolation room (2) Elevated troponin: Code(s): R77.8 - Other specified abnormalities of plasma proteins Status: Acute Assessment and Plan: monitor labs (3) COVID: Code(s): U07.1 - COVID-19 Status: Acute Assessment and Plan: Supportive care steroids and tessalon perles pt not needing oxygen presently sats are good (4) Fall: Code(s): W19.XXXA - Unspecified fall, initial encounter Status: Acute Assessment and Plan: Encourage IV fluids and oral hydration watch CK levels Falls precautions (5) UTI (urinary tract infection): Code(s): N39.0 - Urinary tract infection, site not specified Status: Acute Assessment and Plan: IV rocephin initiated but now stopped urine culture no growth Plan Thrombocytopenia continue to monitor improving Elevated troponin flat Rhabdomyolysis: cK level at worsened. It with IV fluid and now CK level improved DVT prophylaxis start Lovenox Subjective Date/time seen: 03/05/23 14:06 Interval history: Patient was confused all day with Zyprexa last night. Patient remains confused. Reports no shortness of breath or cough. Remains on isolation. Review of Systems Review of Systems: All systems reviewed & are unremarkable except as noted in HPI and below Exam Narrative: APPEARANCE:? Patient appears frail/thin,? A&O x 1 Head: atraumatic. Normocephalic EYES:? EOMI, NOSE: Atraumatic NECK: Trachea midline RESPIRATORY: No increased rate of breathing, diminished breath sound bilaterally CARDIOVASCULAR: RRR,, no peripheral edema ABDOMINAL: Non-distended, soft MUSCULOSKELETAl: No obvious deformities NEURO: Alert. Moving 4/4 extremities SKIN:: Warm, dry. Normal color PSYCHIATRIC: Normal affect Objective Data Vital Signs Vital Signs: Vital Signs - 24 hr 03/04/23 21:03 03/04/23 21:53 03/05/23 06:00 Temperature 97.8 F 97.7 F Pulse Rate 108 H 108 H 49 L Respiratory Rate 20 20 Blood Pressure 131/76 157/74 H Pulse Oximetry 93 100 Oxygen Delivery 03/05/23 08:33 03/05/23 08:45 Temperature Pulse Rate 52 L Respiratory Rate Blood Pressure Pulse Oximetry Oxygen Delivery Room Air Intake/Output Intake/Output: Intake & Output 03/02/23 03/03/23 03/04/23 03/05/23 23:59 23:59 23:59 23:59 Intake Total 470 3416 710 288 Output Total 500 400 Balance -30 3416 310 288 Meds/Results Medications: Active Medications Generic Name Dose Route Start Last Admin Trade Name Freq PRN Reason Stop Dose Admin Aspirin 81 mg 03/02/23 09:00 03/05/23 08:33 Aspirin 81 Mg Enteric Tablet PO 81 mg DAILY MADDIE Administration Benzonatate 100 mg 03/02/23 09:00 03/05/23 12:08 Benzonatate 100 Mg Capsule PO Not Given TID MADDIE Dexamethasone 6 mg 03/02/23 08:00 03/05/23 08:32 Dexamethasone 2 Mg Tablet PO 03/11/23 08:01 6 mg DAILY@0800 MADDIE Administration Enoxaparin Sodium 40 mg 03/05/23 09:00 03/05/23 08:32 Enoxaparin 40 Mg/0.4 Ml Syringe SUB-Q 40 mg DAILY MADDIE Administration Metoprolol Tartrate 25 mg 03/01/23 21:51 03/05/23 08:33 Metoprolol Tartrate 25 Mg Tablet PO 25 mg Q12HR MADDIE Administration Olanzapine 2.5 mg 03/04/23 21:00 03/04/23 21:02 Olanzapine Dispertab 5 Mg PO 2.5 mg HS MADDIE Administration Radiology Results: ITS Impressions Head CT 03/01/23 05:41 Impression: No intracranial hemorrhage, mass, or acute infarct. Atrophy and chronic white matter changes, as above. Chest X-Ray 03/01/23 06:08 Impression: COPD and/or mild chronic interstitial disease. Mild haziness left lung base. Correlate for left lower lobe pneumonia or atelectatic change. Pelvis X-Ray 03/01/23 06:08 Impression:
[2023-03-05 20:00] VITALS: PULSE 60; RESP 16; O2SAT 100
[2023-03-05] MEDS: OLANZapine DISPERTAB 5 MG 2.5 MG PO (21:05)
[2023-03-05 21:36] VITALS: BP 147/75; PULSE 97; RESP 16; TEMP 36.6; O2SAT 100
[2023-03-06 05:45] VITALS: BP 170/83; PULSE 47; RESP 15; TEMP 36.2; O2SAT 94
[2023-03-06 08:00] VITALS: BP 158/86; PULSE 57; PULSE 80; RESP 15; RESP 18; TEMP 35.6; O2SAT 94
[2023-03-06] MEDS: ENOXAPARIN 40 MG/0.4 ML SYRINGE SUB-Q (09:11)
[2023-03-06 09:12] VITALS: PULSE 80
[2023-03-06] MEDS: DEXAMETHASONE 2 MG TABLET 6 MG PO (09:12)
[2023-03-06] MEDS: BENZONATATE 100 MG CAPSULE PO (09:12)
[2023-03-06] MEDS: ASPIRIN 81 MG ENTERIC TABLET PO (09:12)
[2023-03-06] MEDS: METOPROLOL TARTRATE 25 MG TABLET PO (09:12)
[2023-03-06 14:00] VITALS: BP 177/95; PULSE 75; RESP 20; TEMP 36.3; O2SAT 100
[2023-03-06 14:51] VITALS: BP 148/77; PULSE 78; RESP 16; TEMP 36.3; O2SAT 99
--- NOTE | 2023-03-06 15:01 | PM.DS ---
DS: Admitting Diagnosis Discharge Date 03/06/2023 Admitting Diagnosis Fall DS: Discharge Diagnosis Discharge Diagnosis (1) Delirium: Code(s): R41.0 - Disorientation, unspecified Status: Acute (2) Elevated troponin: Code(s): R77.8 - Other specified abnormalities of plasma proteins Status: Acute (3) COVID: Code(s): U07.1 - COVID-19 Status: Acute (4) Fall: Code(s): W19.XXXA - Unspecified fall, initial encounter Status: Acute (5) UTI (urinary tract infection): Code(s): N39.0 - Urinary tract infection, site not specified Status: Acute DS: Summary Hospital Course Hospital Course: # delirium: Confusion secondary to covid and UTI Supportive care Isolation room #Elevated troponin: monitor labs # COVID-19: Supportive care? steroids and tessalon perles pt not needing oxygen presently sats are good # Fall: Encourage IV fluids and oral hydration watch CK levels Falls precautions # UTI (urinary tract infection): IV rocephin initiated but now stopped urine culture no growth # Thrombocytopenia continue to monitor improving # Elevated troponin flat # Rhabdomyolysis:? cK level at worsened.? It with IV fluid and now CK level improved # DVT prophylaxis: Lovenox Time Spent with Patient Time attestation: Total time spent providing and/or coordinating discharge services:45 mins Exam Narrative: APPEARANCE:? Patient appears frail/thin,? A&O x 1 Head: atraumatic. Normocephalic EYES:? EOMI, NOSE: Atraumatic NECK: Trachea midline RESPIRATORY: No increased rate of breathing, diminished breath sound bilaterally CARDIOVASCULAR: RRR,, no peripheral edema ABDOMINAL: Non-distended, soft MUSCULOSKELETAl: No obvious deformities NEURO: Alert. Moving 4/4 extremities SKIN:: Warm, dry. Normal color PSYCHIATRIC: Normal affect, confused DS: Data Imaging Radiologist's impression: ITS Impressions Head CT 03/01/23 05:41 Impression: No intracranial hemorrhage, mass, or acute infarct. Atrophy and chronic white matter changes, as above. Chest X-Ray 03/01/23 06:08 Impression: COPD and/or mild chronic interstitial disease. Mild haziness left lung base. Correlate for left lower lobe pneumonia or atelectatic change. Pelvis X-Ray 03/01/23 06:08 Impression: No significant abnormality is seen. Discharge Plan Discharge Attending physician on discharge: Hamilton Jha Discharging Clinician: Hamilton Jha Anticipated Discharge Date/Time: 03/06/23 14:58 Patient Disposition: SNF Activity: as tolerated Diet: heart healthy Stand Alone Forms: General Discharge Information, Skilled Nursing Discharge Follow-up/Referrals: Edward Barney MD [Primary Care Provider] - 1 Week Discharge Medications: New benzonatate 100 mg Capsule 100 mg PO TID PRN (Reason: Cough) Qty: 30 0RF dexamethasone 2 mg Tablet 6 mg PO DAILY@0800 Qty: 5 0RF Continued metoprolol tartrate 25 mg tablet 25 mg PO BID Qty: 180 3RF cholecalciferol (vitamin D3) 50 mcg (2,000 unit) capsule 25 mcg PO DAILY aspirin [Adult Aspirin Regimen] 81 mg tablet,delayed release (DR/EC) 81 mg PO DAILY Date of admission: 03/01/23 06:09 Primary Care Provider: Edward Barney Admitting Provider: Ky Medrano M.A. Attending physician on admission: Ky Medrano M.A. Condition: Stable
== END 2023-03-06 17:00 | DRG 689 ==
LOC: ANHED 01:20 → ANHIMU 07:48 → ANH3MEDSUR 03-02 16:20
PROVIDERS: Family Medicine; Admitting Provider Internal Medicine; Emergency Provider Emergency Medicine; PCP Family Medicine; Visit Provider Internal Medicine
DX: N39.0 Urinary tract infection, site not specified (principal); U07.1 COVID-19; M62.82 Rhabdomyolysis; D69.6 Thrombocytopenia, unspecified; F01.50 Vascular dementia, unspecified severity, without behavioral disturbance, psychotic disturbance, mood disturbance, and anxiety; I10 Essential (primary) hypertension; E05.90 Thyrotoxicosis, unspecified without thyrotoxic crisis or storm; R29.701 NIHSS score 1; W19.XXXA Unspecified fall, initial encounter; I34.0 Nonrheumatic mitral (valve) insufficiency; Z90.49 Acquired absence of other specified parts of digestive tract
CPT/HCPCS: 36415; 70450; 71045; 72170; 80048; 80053; 81001; 82550; 82728; 83605; 83690; 83735; 84100; 84484; 85025; 85027; 85055; 85610; 85730; 86140; 87040; 87086; 87637; 93005; 96360; 96361; 97110; 97161; 97165; 97530; 97535; 99285; A9270; J0131; J0696; J1650; J7030; J8540

== ENCOUNTER 2023-05-25 13:42 | Inpatient (IN) | payer MEDICARE, SELFPAY ==
[2023-05-25] VITALS (18 sets, daily range): BP systolic 132–191; BP diastolic 67–162; PULSE 62–90; RESP 14–28; TEMP 36.3–37.3; O2SAT 92–98; BMI 25.6
--- NOTE | ~2023-05-25 | XR_ITS ---
XR hip LT 2V w AP pelvis 05/25/2023 14:36 Indication: Left hip pain after fall Procedure: 3 views left hip Comparison: 03/01/2023 Findings: There is a displaced left femoral neck fracture. There is osteoarthritis of the hips. Pelvi c rings are intact. There is on the finished is significant lower lumbar spondylosis with scoliosis. There is atherosclerosis. Impression: 1: Displaced left femoral neck fracture. Reviewed, dictated and finalized at location A. Impression: 1: Displaced left femoral neck fracture.
--- NOTE | ~2023-05-25 | CT_ITS ---
EXAMINATION: CT cervical spine wo con DATE: 05/25/2023 15:46 INDICATION: Ground-level fall with possible head injury. Dementia. TECHNIQUE: Computed tomography (CT) of the cervical spine was performed without intravenous contrast. Automated exposure control and iterative reconstruction technique were employed. The dose-length pro duct was 106.92 mGy-cm. COMPARISON: None FINDINGS: Straightening of the normal cervical lordosis. Mild cervicothoracic levocurvature. Vertebral body hei ghts are normal. No fracture. Moderate disc height loss at C4-C5, C5-C6, C6-C7 and T3-T4. Mild disc h eight loss at C7-T1 through T2-T3. Small posterior disc osteophyte complex resulting in minimal centr al canal stenosis at C4-C5 through C6-C7. Uncovertebral osteoarthritis, severe bilaterally at C4-C5 a nd severe on the right and moderate on the left at C5-C6 and C6-C7. There is also multilevel cervical facet osteoarthritis, severe on the left at 4 C5 and C7-T1 and moderate severity on the right at C3- C4 and C4-C5. There is additional moderate to severe facet osteoarthritis bilaterally at T2-T3 and T3 -T4. Mild biapical pleural-parenchymal scarring. Tiny calcified nodule at the right apex consistent w ith old granulomatous disease. Atherosclerotic calcific lesions at the bilateral carotid bulbs. Cervi kyaw soft tissues are otherwise unremarkable. IMPRESSION: 1. Moderate cervical spondylosis. No acute osseous abnormality. Reviewed, dictated and finalized at location A.
--- NOTE | ~2023-05-25 | XR_ITS ---
EXAM: XR hip LT min 2V DATE: 05/29/2023 16:25 HISTORY: LT BIPOLAR HIP . COMPARISON: 05/25/2023. FINDINGS: Interval left hip arthroplasty placement, in good position. No unexpected radiopaque forei gn body. Subcutaneous gas over the hip and proximal thigh. Degenerative changes in lumbar spine and l eft SI joint. IMPRESSION: Expected postsurgical changes, with no radiographic evidence of procedure or hardware rel ated complication. Reviewed, dictated and finalized at location K. IMPRESSION: Expected postsurgical changes, with no radiographic evidence of pro cedure or hardware related complication.
--- NOTE | ~2023-05-25 | US_ITS ---
US right upper quadrant INDICATION: Elevated liver enzymes PROCEDURE: Realtime right upper abdominal ultrasound. COMPARISON: CT dated 02/19/2014 FINDINGS: The pancreas is normal without focal mass or pancreatic ductal dilation. Liver echotexture is somewhat heterogeneous. In the right hepatic lobe inferiorly there is a subcapsular hyperechoic m ass measuring 1.3 cm. There is right pleural effusion. There is normal directional flow in the ras l vein. Gallbladder is surgically absent. No significant biliary dilatation. IMPRESSION: 1: Small subcapsular hyperechoic 1.3 cm mass of the right hepatic lobe, most likely benign hemangioma in the absence of known malignancy. Reviewed, dictated and finalized at location A. IMPRESSION: 1: Small subcapsular hyperechoic 1.3 cm mass of the right hepatic lobe, most li paige benign hemangioma in the absence of known malignancy.
--- NOTE | ~2023-05-25 | CT_ITS ---
EXAMINATION: CT brain wo con DATE: 05/25/2023 15:46 INDICATION: Dementia. Ground-level fall with possible head injury TECHNIQUE: Computed tomography (CT) of the head was performed without intravenous contrast. Sagittal and coronal reconstructions were performed. The mA was adjusted according to patient size. Iterative reconstruction technique was employed. The dose-length product was 605.33 mGy-cm. COMPARISON: head CT dated 03/01/2023 FINDINGS: No calvarial fracture. No acute intracranial hemorrhage, acute infarction or abnormal extra axial flu id collection. There is moderate scattered white matter hypoattenuation consistent with chronic small vessel ischemic disease. Symmetric prominence of the sulci and ventricles consistent with moderate a ge-appropriate diffuse cerebral volume loss. No mass/mass effect. Changes of bilateral intraocular le ns replacement. The orbits and mastoid air cells are normal. Mild mucosal thickening the bilateral et hmoid sinuses. IMPRESSION: 1. No fracture or acute intracranial process. 2. Age-related changes including moderate diffuse volume loss and moderate scattered white matter hyp oattenuation consistent with chronic small vessel ischemic disease. Reviewed, dictated and finalized at location A. IMPRESSION: 1. No fracture or acute intracranial process. 2. Age-related changes including moderate diffuse volume loss and moderate scat tered white matter hypoattenuation consistent with chronic small vessel ischemi c disease.
--- NOTE | ~2023-05-25 | XR_ITS ---
XR chest 1V 05/25/2023 15:51 Indication: Preop. Left hip fracture. Procedure: AP view of the chest Comparison: 03/01/2023 Findings: Cardiomegaly. No focal air space disease, pulmonary edema, pleural effusion or suspected pn eumothorax. No acute osseous abnormality. Impression: 1: No acute cardiopulmonary disease. Reviewed, dictated and finalized at location A. Impression: 1: No acute cardiopulmonary disease.
--- NOTE | 2023-05-25 14:58 | ED.FALL ---
HPI - Fall General Chief Complaint: Fall <LUIS FELIPE Amos Last Filed: 05/25/23 16:29> Stated Complaint: GLF, R hip pain <LUIS FELIPE Amos Last Filed: 05/25/23 16:29> Time Seen by Provider: 05/25/23 14:41 <LUIS FELIPE Amos Last Filed: 05/25/23 16:29> Source: patient <LUIS FELIPE Amos Last Filed: 05/25/23 16:29> Mode of arrival: EMS <LUIS FELIPE Amos Last Filed: 05/25/23 16:29> Limitations: dementia <LUIS FELIPE Amos Last Filed: 05/25/23 16:29> History of Present Illness HPI Narrative: Patient is an 83 y/o female who presents to the ED via EMS with c/o ground level fall. Patient is a resident of [facility]. She has hx of dementia. Patient reports she was walking to try to get to her bedroom door when she lost her balance and twirled to the ground. She notes she was using an old walker. Per half-way records, patient was found on the ground behind her door. Patient is unsure if she hit her head or lost consciousness. She complains of pain to her left hip. Deformity was noted by half-way, EMS was called. Patient denies any other pain, dizziness, lightheadedness, nausea, vomiting, abdominal pain, chest pain, difficulty breathing. Patient takes an aspirin 81 mg, denies any other blood thinners. <LUIS FELIPE Amos Last Filed: 05/25/23 16:29> Related Data Home Medications: Home Medications Medication Instructions Recorded Confirmed aspirin 81 mg tablet,delayed 81 mg PO DAILY 03/01/23 05/25/23 release (Adult Aspirin Regimen) <LUIS FELIPE Amos Last Filed: 05/25/23 16:29> Allergies/Adverse Reactions: Allergies Allergy/AdvReac Type Severity Reaction Status Date / Time hydralazine Allergy Unknown Verified 12/16/22 09:59 hydrocodone Allergy Unknown Verified 05/25/23 18:42 sulfamethoxazole Allergy Unknown Verified 12/16/22 09:59 trimethoprim Allergy Unknown Verified 12/16/22 09:59 <Olive Elam PA-C - Last Filed: 05/25/23 16:29> Review of Systems Review of Systems: CONSTITUTIONAL: Denies fever, chills, or sweats. EYES: Denies visual changes. CARDIOVASCULAR: Denies chest pain. RESPIRATORY: Denies dyspnea. GASTROINTESTINAL: Denies abdominal pain, nausea, vomiting. MUSCULOSKELETAL: See HPI. NEUROLOGIC: See HPI. <Olive Elam PA-C - Last Filed: 05/25/23 16:29> All systems reviewed & are unremarkable except as noted in HPI and below <Olive Elam PA-C - Last Filed: 05/25/23 16:29> [facility] Past Medical History Medical History: Medical History (Updated 05/30/23 @ 13:03 by KRYSTAL Abarca) Body mass index (BMI) less than 16.5 Body mass index (BMI) less than 20 Dementia Dysphagia Femoral neck fracture Left hip History of partial replacement of left hip joint using bipolar prosthesis Hypertension Hyperthyroidism Leg weakness, bilateral Low vitamin D level Severe mitral regurgitation Thyroid nodule TIA (transient ischemic attack) <Olive Elam PA-C - Last Filed: 05/25/23 16:29> Surgical History Surgical History: Surgical History History of laparoscopic appendectomy History of tonsillectomy and adenoidectomy Hx of cholecystectomy <Olive Elam PA-C - Last Filed: 05/25/23 16:29> Family History Family History: Family History Father Thyroid cancer Mother Arthritis Sibling Agent [place] poisoning Leukemia Other Diabetes mellitus Hypertension <Olive Elam PA-C - Last Filed: 05/25/23 16:29> Social History Social History: Social History Social History: The patient resides at [facility]. The patient de
--- NOTE | 2023-05-25 15:07 | ECG_ITS ---
Measurements Intervals [place] Rate: 54 P: 39 ND: 144 QRS: 64 QRSD: 91 T: 52 QT: 458 QTc: 435 Interpretive Statements SINUS BRADYCARDIA WITH SINUS ARRHYTHMIA LEFT VENTRICULAR HYPERTROPHY AND ST-T CHANGE MINIMAL Q WAVES- LATERAL LEADS BORDERLINE ST ABNORMALITY-INF/LAT BASELINE ARTIFACT- LEADS I, II, III, AVR, AVL, AVF, V1-V6 BORDERLINE ECG COMPARED TO ECG 03/01/2023 13:21:09 SINUS BRADYCARDIA NOW PRESENT Electronically Signed On 05-25-2023 16:14:52 CDT by Kiel Calderon D.O.
[2023-05-25 15:29] LABS: Basophils Absolute Auto 0.1 K/mm3 (0.0-0.1); Basophils Percent Auto 0.7 % (0.2-1.2); Eosinophils Absolute Auto 0.4 K/mm3 (0-0.3); Eosinophils Percent Auto 5.1 % (0-4.4); Hemoglobin 13.1 g/dL (12.0-15.0); Immature Granulocyte Absolute 0.06 K/mm3 (0.00-0.031); Immature Granulocyte Percent A 0.8 % (0-0.5); Lymphocytes Absolute Auto 1.09 K/mm3 (0.9-3.2); Lymphocytes Percent Auto 14.2 % (18.3-44.2); Mean Corpuscular Hemoglobin 31.2 pg (26-34); Mean Corpuscular Volume 97.6 fl (80-100); Mean Platelet Volume 9.6 fl (7.4-10.4); Monocytes Absolute Auto 0.5 K/mm3 (0.1-0.6); Monocytes Percent Auto 6.9 % (2.6-8.5); Neutrophils Absolute Auto 5.6 K/mm3 (1.3-6.7); Neutrophils Percent Auto 72.3 % (45.5-73.1); Platelet Count Result 212 k/mm3 (150-375); Red Cell Distribution Width 14.2 % (11.5-14.5); White Blood Count 7.7 K/mm3 (4.5-10.0)
[2023-05-25 15:41] LABS: Anion Gap 6 mmol/L (8-16); Blood Urea Nitrogen 22 mg/dL (7-17); Calcium 8.8 mg/dL (8.4-10.2); Carbon Dioxide 31 mmol/L (22-30); Chloride 103 mmol/L (98-107); Creatine Kinase 106 U/L (30-135); Estimated CRCL calculation 38 ml/min; Estimated Glomerular Filt Rate 60; Glucose 99 mg/dL (65-110); Potassium 3.9 mmol/L (3.4-5.0); Prothrombin Time 14.2 Seconds (11.1-14.7); Sodium 140 mmol/L (137-145)
[2023-05-25 15:42] LABS: Partial Thromboplastin Time 30.7 SECONDS (22.3-36.8)
[2023-05-25] MEDS: SODIUM CHLORIDE 0.9% IV 1,000 ML 999 ML IV CONT (16:58)
[2023-05-25] MEDS: ONDANSETRON INJ 4 MG/2 ML VIAL IV PUSH (16:59)
[2023-05-25] MEDS: MORPHINE SULFATE (*CRX) 2 MG/ML INJ IV PUSH (17:00)
--- NOTE | 2023-05-25 18:43 | ADMGEN ---
This patient, Gege Ortiz, was admitted to Medical Room 345-01. Patient/family oriented to hospital policies and general routines including ID bracelet, bed and alarms, visiting hours, pain management, procedures, bathroom and other care routines, personal items, smoking policy, room service/diet, and visiting hours. Information on how to activate the Rapid Response Team has been discussed. Patient/Family are encouraged to report perceived risks to care and to ask questions if they do not understand what they are told or what they should do.
--- NOTE | 2023-05-25 20:35 | PM.IMHP ---
H&P: HPI History of Present Illness Date/Time: 05/25/23 20:35 Chief Complaint: Fall Narrative: This is an 83-year-old female patient who resides at a memory care unit at [facility]. The patient does not remember how she fell. She came to the emergency room with complaints of a ground level fall. She does have a history of dementia. The patient was walking to the bathroom and she tried to close the door when she lost her balance and for rolled down to the ground. The patient was noted to be using an old walker. The patient was found on the ground behind the door. She was unsure if she hit her head or lost consciousness. The patient had a deformity of the left hip. She was also complaining of cervical spine pain. Hip and pelvis x-ray was read as displaced left femoral neck fracture. Head CT was read as follows. No fracture or acute intracranial process. 2. Age-related changes including moderate diffuse volume loss and moderate scattered white matter hypoattenuation consistent with chronic small vessel ischemic disease. Chest x-ray was read as no acute cardiopulmonary disease. Cervical spine CT was read as the following. Moderate cervical spondylosis. No acute osseous abnormality. The patient was given morphine, Zofran and IV fluids. The patient the admission does region status on 05/25/2023. Review of Systems Review of Systems: All systems reviewed & are unremarkable except as noted in HPI and below Constitutional: Constitutional: Reports as per HPI and Reports no additional constitutional complaints Eyes: Eyes: Reports as per HPI and Reports no additional eye complaints ENT: Reports system reviewed and no additional complaints, except as documented and Reports Normal hearing present Cardiovascular: Cardiovascular: Reports no additional cardiovascular complaints Respiratory: Respiratory: Reports no additional respiratory complaints and Reports no additional respiratory complaints Gastrointestinal: Gastrointestinal: Reports as per HPI and Reports no additional gastrointestinal complaints Musculoskeletal: Musculoskeletal: Reports no additional musculoskeletal complaints Integumentary/Breasts: Skin/Breast: Reports system reviewed and no additional complaints, except as docu and Reports as per HPI Neurologic: Reports system reviewed and no additional complaints, except as documented, Reports as per HPI and Reports Normal hearing present Psychiatric: Psychiatric: Reports no additional psychiatric complaints and Reports as per HPI Endocrine: Endocrine: Reports no additional endocrine complaints Hematologic/Lymphatic: Hematologic/Lymphatic: Reports no additional hematologic/lymphatic complaints Allergic/Immunologic: Allergic/Immunologic: Reports no additional allergic/immunologic complaints [facility] Past Medical History Medical History Body mass index (BMI) less than 16.5 Body mass index (BMI) less than 20 Dementia Dysphagia Hypertension Hyperthyroidism Leg weakness, bilateral Low vitamin D level Severe mitral regurgitation Thyroid nodule Surgical History Surgical History History of laparoscopic appendectomy History of tonsillectomy and adenoidectomy Hx of cholecystectomy Family History Family History Father Thyroid cancer Mother Arthritis Sibling Agent [place] poisoning Leukemia Other Diabetes mellitus Hypertension Social History Social History (Updated 05/26/23 @ 01:29 by Sarahy Brito NP) Social History: The patient resides at [facility]. The patient denies any tobacco use. The patient is . 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 She has 3 children listed as her contacts. Code status DNR Smoking status: Never smoker Second hand tobacco smoke exposure: Yes Alc
[2023-05-26] VITALS (11 sets, daily range): BP systolic 142–151; BP diastolic 66–85; PULSE 75–88; RESP 16–20; TEMP 36.8–36.9; O2SAT 91–97; BMI 17.1
[2023-05-26] MEDS: fentaNYL CITRATE INJ (*CRX) 100 MCG/2 ML VIAL 25 MCG IV PUSH ×3 (01:04→18:59)
[2023-05-26] MEDS: METOPROLOL TARTRATE 25 MG TABLET PO ×3 (01:05→21:17)
[2023-05-26] MEDS: SODIUM CHLORIDE 0.9% IV 1,000 ML 100 ML IV CONT ×2 (02:46→13:49)
[2023-05-26 03:08] LABS: Appearance Urine Clear (Clear); Bacteria Urine None Seen /hpf; Bilirubin Urine Negative (Negative); Blood Urine 3+ (Negative); Color Urine Yellow (Yellow); Glucose Urine UA Negative (Negative); Ketones Urine Trace mg/dL (Negative); Leukocyte Esterase Ur Trace LEU/UL (Negative); Nitrate Urine Negative (Negative); Non Pathogenic Casts 0-2; Protein Urine Negative (Negative); RBC Urine 21-50 /hpf (0-2); Specific Grav Ur 1.016 (1.001-1.035); Squamous Epithelial Cell Urine None seen /hpf (Few); WBC Urine 0-5 /hpf
[2023-05-26 03:18] LABS: Add Urine Microscopic? YES
[2023-05-26 05:44] LABS: Basophils Absolute Auto 0.1 K/mm3 (0.0-0.1); Basophils Percent Auto 0.4 % (0.2-1.2); Eosinophils Absolute Auto 0.4 K/mm3 (0-0.3); Eosinophils Percent Auto 2.5 % (0-4.4); Hematocrit 42.6 % (37.0-47.0); Hemoglobin 13.8 g/dL (12.0-15.0); Immature Granulocyte Absolute 0.08 K/mm3 (0.00-0.031); Immature Granulocyte Percent A 0.5 % (0-0.5); Lymphocytes Percent Auto 6.6 % (18.3-44.2); Mean Corpuscular HGB Conc 32.4 g/dl (32-36); Mean Corpuscular Hemoglobin 31.7 pg (26-34); Mean Corpuscular Volume 97.7 fl (80-100); Mean Platelet Volume 9.7 fl (7.4-10.4); Monocytes Absolute Auto 0.8 K/mm3 (0.1-0.6); Monocytes Percent Auto 5.4 % (2.6-8.5); Neutrophils Absolute Auto 12.7 K/mm3 (1.3-6.7); Neutrophils Percent Auto 84.6 % (45.5-73.1); Platelet Count Result 204 k/mm3 (150-375); Red Blood Count 4.36 M/mm3 (4.2-5.4); Red Cell Distribution Width 13.9 % (11.5-14.5); White Blood Count 15.1 K/mm3 (4.5-10.0)
[2023-05-26 06:02] LABS: Alanine Aminotransferase 24 U/L (6-35); Albumin Level 3.7 g/dL (3.5-5.1); Alkaline Phosphatase 106 U/L (38-126); Anion Gap 8 mmol/L (8-16); Aspartate Amino Transferase 47 U/L (14-36); Bilirubin,Total 1.5 mg/dL (0.2-1.3); Blood Urea Nitrogen 16 mg/dL (7-17); Calcium 8.4 mg/dL (8.4-10.2); Carbon Dioxide 25 mmol/L (22-30); Chloride 105 mmol/L (98-107); Estimated CRCL calculation 39 ml/min; Estimated Glomerular Filt Rate > 60; Glucose 118 mg/dL (65-110); Magnesium 2.1 mg/dL (1.6-2.3); Potassium 3.9 mmol/L (3.4-5.0); Sodium 138 mmol/L (137-145)
[2023-05-26 06:24] LABS: Thyroid Stimulating Hormone Reflex 0.977 uIU/mL (0.465-4.68)
--- NOTE | 2023-05-26 08:13 | PC.NURSE ---
patient has been on 2 L oxygen since admit to the floor last night. per night RN, patient desats into the 80s at times
--- NOTE | 2023-05-26 12:29 | PM.CNOR ---
Assessment and Plan Assessment and plan (1) Femoral neck fracture: Qualifiers: Encounter type: initial encounter Fracture type: closed Laterality: left Qualified Code(s): S72.002A - Fracture of unspecified part of neck of left femur, initial encounter for closed fracture Code(s): S72.009A - Fracture of unspecified part of neck of unspecified femur, initial encounter for closed fracture Status: Acute Assessment and Plan: 83-year-old female with a left subcapital femoral neck fracture. She has pretty significant dementia in was minimally ambulatory at the care facility. I did discuss with the patient's family surgical versus nonsurgical treatment trying to weigh the pros and cons of each. We will see how she does to the weekend to get her medically optimized and then if they wish to go ahead with surgery that could be done on Monday. If they opt for nonsurgical treatment then we will start to mobilize her by getting her into the chair and putting her on scheduled Tylenol for comfort. Thank you for the consultation. History of Present Illness HPI Consult date: 05/26/23 Chief complaint: L Femoral Neck Fracture,GLF,Dementia Narrative: 83-year-old female who lives in a memory care unit. She fell yesterday suffering a displaced left femoral neck fracture. She has got severely progressive dementia. Was recently hospitalized here with COVID and a UTI as well as worsening dementia. Review of Systems Constitutional: Constitutional: Reports as per [facility] Past Medical History Medical History (Updated 05/26/23 @ 12:33 by Florentino Hernandes MD) Body mass index (BMI) less than 16.5 Body mass index (BMI) less than 20 Dementia Dysphagia Femoral neck fracture Left hip Hypertension Hyperthyroidism Leg weakness, bilateral Low vitamin D level Severe mitral regurgitation Thyroid nodule Surgical History Surgical History History of laparoscopic appendectomy History of tonsillectomy and adenoidectomy Hx of cholecystectomy Family History Family History Father Thyroid cancer Mother Arthritis Sibling Agent [place] poisoning Leukemia Other Diabetes mellitus Hypertension Social History Social History Social History: The patient resides at [facility]. The patient denies any tobacco use. The patient is . 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 She has 3 children listed as her contacts. 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 Gender identity (if verbalized by the patient): Female Spiritual care concerns: No Meds Home Medications and Allergies Home Medications Medication Instructions Recorded Confirmed Type aspirin 81 mg tablet,delayed 81 mg PO DAILY 03/01/23 05/25/23 History release (Adult Aspirin Regimen) metoprolol tartrate 25 mg tablet 25 mg PO BID #180 tabs 04/09/23 05/25/23 Rx Allergies Allergy/AdvReac Type Severity Reaction Status Date / Time hydralazine Allergy Unknown Verified 12/16/22 09:59 hydrocodone Allergy Unknown Verified 05/25/23 18:42 sulfamethoxazole Allergy Unknown Verified 12/16/22 09:59 trimethoprim Allergy Unknown Verified 12/16/22 09:59 Vital Signs Vital Signs
--- NOTE | 2023-05-26 12:48 | PC.NURSE ---
family states that patient was using trapeze to get out of bed. patient still on bed rest. plan to put trapeze on when patient having surgery
--- NOTE | 2023-05-26 14:45 | P.PNIM_ITS ---
Progress Note: A&P Assessment and Plan (1) Femoral neck fracture: Qualifiers: Encounter type: initial encounter Fracture type: closed Laterality: left Qualified Code(s): S72.002A - Fracture of unspecified part of neck of left femur, initial encounter for closed fracture Code(s): S72.009A - Fracture of unspecified part of neck of unspecified femur, initial encounter for closed fracture Status: Acute Assessment and Plan: * Presented to the ED with complaints of a fall * Hip xray shows displaced left femoral neck fracture * Ortho has been consulted. * Continue with analgesics. * Turn * Urinary catheter (2) Dementia: Qualifiers: Dementia behavioral or psychological symptom: unspecified whether behavioral, psychotic, or mood disturbance or anxiety Dementia severity: unspecified severity Dementia type: unspecified type Qualified Code(s): F03.90 - Unspecified dementia, unspecified severity, without behavioral disturbance, psychotic disturbance, mood disturbance, and anxiety Code(s): F03.90 - Unspecified dementia, unspecified severity, without behavioral disturbance, psychotic disturbance, mood disturbance, and anxiety Status: Acute Assessment and Plan: * Appears to be advancing * Trend mental status * Seems to be at baseline (3) Hyperthyroidism: Code(s): E05.90 - Thyrotoxicosis, unspecified without thyrotoxic crisis or storm Status: Acute Assessment and Plan: * TSH 0.977 * Stable (4) Hypertension: Qualifiers: Hypertension type: primary hypertension Qualified Code(s): I10 - Essential (primary) hypertension Code(s): I10 - Essential (primary) hypertension Status: Acute Assessment and Plan: * Continue with metoprolol. * BP is stable at 148/66 * Continue to trend * Adjust therapy as indicated (5) Leukocytosis, unspecified: Qualifiers: Leukocytosis type: unspecified Qualified Code(s): D72.829 - Elevated white blood cell count, unspecified Code(s): D72.829 - Elevated white blood cell count, unspecified Status: Acute Assessment and Plan: * WBC slightly elevated at 15.1 * Could be related to UTI * Chest xray shows no acute abnormality * Start ceftriaxone * Send urine culture * trend labs (6) Transaminitis: Code(s): R74.01 - Elevation of levels of liver transaminase levels Status: Acute Assessment and Plan: * AST mildly elevated 47 * T. Bili 1.5 * Continue to trend labs * Hep panel in the am * RUQ ultrasound ordered * adjust therapy as indicated (7) Abnormal finding on urinalysis: Code(s): R82.90 - Unspecified abnormal findings in urine Status: Acute Assessment and Plan: * UA shows leukocyte esterase * Ceftriaxone started * Trend urine output * adjust therapy as indicated * Culture ordered Time Spent With Patient Time: 47 minutes Time with patient: Greater than 35 minutes Subjective Date/time seen: 05/26/23 114 Interval history: 05/26/231144 patient seems to be little bit confused today. Her family is in the room with her. They did state that she has been getting confused intermittently over the last couple weeks. WBCs are elevated 15.1. UTI does not appear to be that
--- NOTE | 2023-05-26 14:45 | PM.IMPN ---
Progress Note: A&P Assessment and Plan (1) Femoral neck fracture: Qualifiers: Encounter type: initial encounter Fracture type: closed Laterality: left Qualified Code(s): S72.002A - Fracture of unspecified part of neck of left femur, initial encounter for closed fracture Code(s): S72.009A - Fracture of unspecified part of neck of unspecified femur, initial encounter for closed fracture Status: Acute Assessment and Plan: Presented to the ED with complaints of a fall Hip xray shows displaced left femoral neck fracture Ortho has been consulted. Continue with analgesics. Turn Urinary catheter (2) Dementia: Qualifiers: Dementia behavioral or psychological symptom: unspecified whether behavioral, psychotic, or mood disturbance or anxiety Dementia severity: unspecified severity Dementia type: unspecified type Qualified Code(s): F03.90 - Unspecified dementia, unspecified severity, without behavioral disturbance, psychotic disturbance, mood disturbance, and anxiety Code(s): F03.90 - Unspecified dementia, unspecified severity, without behavioral disturbance, psychotic disturbance, mood disturbance, and anxiety Status: Acute Assessment and Plan: Appears to be advancing Trend mental status Seems to be at baseline (3) Hyperthyroidism: Code(s): E05.90 - Thyrotoxicosis, unspecified without thyrotoxic crisis or storm Status: Acute Assessment and Plan: TSH 0.977 Stable (4) Hypertension: Qualifiers: Hypertension type: primary hypertension Qualified Code(s): I10 - Essential (primary) hypertension Code(s): I10 - Essential (primary) hypertension Status: Acute Assessment and Plan: Continue with metoprolol. BP is stable at 148/66 Continue to trend Adjust therapy as indicated (5) Leukocytosis, unspecified: Qualifiers: Leukocytosis type: unspecified Qualified Code(s): D72.829 - Elevated white blood cell count, unspecified Code(s): D72.829 - Elevated white blood cell count, unspecified Status: Acute Assessment and Plan: WBC slightly elevated at 15.1 Could be related to UTI Chest xray shows no acute abnormality Start ceftriaxone Send urine culture trend labs (6) Transaminitis: Code(s): R74.01 - Elevation of levels of liver transaminase levels Status: Acute Assessment and Plan: AST mildly elevated 47 T. Bili 1.5 Continue to trend labs Hep panel in the am RUQ ultrasound ordered adjust therapy as indicated (7) Abnormal finding on urinalysis: Code(s): R82.90 - Unspecified abnormal findings in urine Status: Acute Assessment and Plan: UA shows leukocyte esterase Ceftriaxone started Trend urine output adjust therapy as indicated Culture ordered Time Spent With Patient Time: 47 minutes Time with patient: Greater than 35 minutes Subjective Date/time seen: 05/26/23 1145 Interval history: 05/26/23 114 patient seems to be little bit confused today. Her family is in the room with her. They did state that she has been getting confused intermittently over the last couple weeks. WBCs are elevated 15.1. UTI does not appear to be that bad however does have leukocyte esterase. T bili is 1.[address] Dinh and will start her on antibiotics for UTI and have a right upper quadrant ultrasound done for the elevated bilirubin and mildly elevated AST. Family did say that when she does get UTI she does get a little more confused. She does state that she does have pain. complete review of systems unable to be obtained due to patient's mental status 05/25/23? 20:35 This is an 83-year-old female patient who resides at a memory care unit at [facility].? The patient does not remember how she fell.? She came to the emergency room w
[2023-05-27] MEDS: fentaNYL CITRATE INJ (*CRX) 100 MCG/2 ML VIAL 25 MCG IV PUSH (02:09)
[2023-05-27 05:40] LABS: Basophils Absolute Auto 0.1 K/mm3 (0.0-0.1); Basophils Percent Auto 0.6 % (0.2-1.2); Eosinophils Absolute Auto 0.5 K/mm3 (0-0.3); Eosinophils Percent Auto 4.1 % (0-4.4); Hematocrit 41.4 % (37.0-47.0); Hemoglobin 13.1 g/dL (12.0-15.0); Immature Granulocyte Percent A 0.8 % (0-0.5); Lymphocytes Absolute Auto 1.08 K/mm3 (0.9-3.2); Lymphocytes Percent Auto 8.6 % (18.3-44.2); Mean Corpuscular HGB Conc 31.6 g/dl (32-36); Mean Corpuscular Hemoglobin 30.9 pg (26-34); Mean Corpuscular Volume 97.6 fl (80-100); Mean Platelet Volume 9.7 fl (7.4-10.4); Monocytes Percent Auto 7.6 % (2.6-8.5); Neutrophils Absolute Auto 9.9 K/mm3 (1.3-6.7); Neutrophils Percent Auto 78.3 % (45.5-73.1); Platelet Count Result 178 k/mm3 (150-375); Red Blood Count 4.24 M/mm3 (4.2-5.4); Red Cell Distribution Width 13.9 % (11.5-14.5); White Blood Count 12.6 K/mm3 (4.5-10.0)
[2023-05-27 06:00] VITALS: BP 155/110; PULSE 85; RESP 16; TEMP 36.6; O2SAT 99
[2023-05-27 06:00] LABS: Alanine Aminotransferase 18 U/L (6-35); Albumin Level 3.1 g/dL (3.5-5.1); Alkaline Phosphatase 82 U/L (38-126); Anion Gap 2 mmol/L (8-16); Aspartate Amino Transferase 34 U/L (14-36); Bilirubin,Total 1.1 mg/dL (0.2-1.3); Blood Urea Nitrogen 15 mg/dL (7-17); Calcium 7.9 mg/dL (8.4-10.2); Carbon Dioxide 25 mmol/L (22-30); Chloride 106 mmol/L (98-107); Estimated CRCL calculation 45 ml/min; Estimated Glomerular Filt Rate > 60; Glucose 100 mg/dL (65-110); Magnesium 2.1 mg/dL (1.6-2.3); Potassium 3.8 mmol/L (3.4-5.0); Sodium 133 mmol/L (137-145)
[2023-05-27 07:01] LABS: Hepatitis B Surface Antigen Negative (Negative)
[2023-05-27 07:06] LABS: HAV RESULT Negative (Negative); Hepatitis B Core IgM Result Negative (Negative)
[2023-05-27 07:18] LABS: Hepatitis C Virus Antibody Negative (Negative)
[2023-05-27 08:20] VITALS: PULSE 79; RESP 16; O2SAT 97
[2023-05-27 08:21] VITALS: PULSE 79
[2023-05-27] MEDS: METOPROLOL TARTRATE 25 MG TABLET PO ×2 (08:21→21:05)
[2023-05-27] MEDS: SODIUM CHLORIDE 0.9% IV 1,000 ML 100 ML IV CONT ×2 (08:27→17:12)
--- NOTE | 2023-05-27 12:41 | PM.IMPN ---
Progress Note: A&P Assessment and Plan (1) Femoral neck fracture: Qualifiers: Encounter type: initial encounter Fracture type: closed Laterality: left Qualified Code(s): S72.002A - Fracture of unspecified part of neck of left femur, initial encounter for closed fracture Code(s): S72.009A - Fracture of unspecified part of neck of unspecified femur, initial encounter for closed fracture Status: Acute Assessment and Plan: Presented to the ED with complaints of a fall Hip xray shows displaced left femoral neck fracture Ortho consultation noted Family consider surgery vs conservative management Continue with analgesics. Urinary catheter due to immobility (2) Dementia: Qualifiers: Dementia behavioral or psychological symptom: unspecified whether behavioral, psychotic, or mood disturbance or anxiety Dementia severity: unspecified severity Dementia type: unspecified type Qualified Code(s): F03.90 - Unspecified dementia, unspecified severity, without behavioral disturbance, psychotic disturbance, mood disturbance, and anxiety Code(s): F03.90 - Unspecified dementia, unspecified severity, without behavioral disturbance, psychotic disturbance, mood disturbance, and anxiety Status: Acute Assessment and Plan: Moderately severe (3) Hyperthyroidism: Code(s): E05.90 - Thyrotoxicosis, unspecified without thyrotoxic crisis or storm Status: Acute Assessment and Plan: TSH 0.977 Stable (4) Hypertension: Qualifiers: Hypertension type: primary hypertension Qualified Code(s): I10 - Essential (primary) hypertension Code(s): I10 - Essential (primary) hypertension Status: Acute Assessment and Plan: Continue with metoprolol. BP is stable (5) Leukocytosis, unspecified: Qualifiers: Leukocytosis type: unspecified Qualified Code(s): D72.829 - Elevated white blood cell count, unspecified Code(s): D72.829 - Elevated white blood cell count, unspecified Status: Acute Assessment and Plan: WBC slightly elevated at 15.1 Could be related to UTI Chest xray shows no acute abnormality Start ceftriaxone Send urine culture trend labs (6) Transaminitis: Code(s): R74.01 - Elevation of levels of liver transaminase levels Status: Acute Assessment and Plan: AST mildly elevated 47 T. Bili 1.5 Continue to trend labs Hep panel in the am RUQ ultrasound ordered adjust therapy as indicated (7) Abnormal finding on urinalysis: Code(s): R82.90 - Unspecified abnormal findings in urine Status: Acute Assessment and Plan: UA shows leukocyte esterase Ceftriaxone started Trend urine output adjust therapy as indicated Culture ordered Subjective Date/time seen: 05/27/23 12:41 Interval history: No complaints of pain. When asked how she is feeling replies ?I do not know ?. Review of Systems Review of Systems: ROS unobtainable: Yes unobtainable due to medical condition Exam Narrative: General: malnourished, chronically ill 83-year-old female, laying in bed, in NAD HEENMT: normocephalic, atraumatic, EOMI, sclerae anicteric, moist oral mucosa Respiratory: Clear to auscultation bilaterally without crackles, rhonchi or wheezes, nonlabored breathing Cardio: regular rate, regular rhythm with S1-S2 Abdomen: nondistended, normoactive bowel sounds, soft, nontender to palpation Extremities: no edema, erythema, or tenderness to palpation, DP pulses 2+ bilaterally Skin: no rashes or lesions, warm and dry MS: Right lower extremity abducted and externally rotated Neuro: awake, alert and oriented x1.5 (self, hospital but not which one, not year or month) Psych: Anxious. Poor judgement and insight. Objective Data Vital Signs Vital Signs: Vital Signs -
--- NOTE | 2023-05-27 12:41 | P.PNIM_ITS ---
Progress Note: A&P Assessment and Plan (1) Femoral neck fracture: Qualifiers: Encounter type: initial encounter Fracture type: closed Laterality: left Qualified Code(s): S72.002A - Fracture of unspecified part of neck of left femur, initial encounter for closed fracture Code(s): S72.009A - Fracture of unspecified part of neck of unspecified femur, initial encounter for closed fracture Status: Acute Assessment and Plan: * Presented to the ED with complaints of a fall * Hip xray shows displaced left femoral neck fracture * Ortho consultation noted * Family consider surgery vs conservative management * Continue with analgesics. * Urinary catheter due to immobility (2) Dementia: Qualifiers: Dementia behavioral or psychological symptom: unspecified whether behavioral, psychotic, or mood disturbance or anxiety Dementia severity: unspecified severity Dementia type: unspecified type Qualified Code(s): F03.90 - Unspecified dementia, unspecified severity, without behavioral disturbance, psychotic disturbance, mood disturbance, and anxiety Code(s): F03.90 - Unspecified dementia, unspecified severity, without behavioral disturbance, psychotic disturbance, mood disturbance, and anxiety Status: Acute Assessment and Plan: * Moderately severe (3) Hyperthyroidism: Code(s): E05.90 - Thyrotoxicosis, unspecified without thyrotoxic crisis or storm Status: Acute Assessment and Plan: * TSH 0.977 * Stable (4) Hypertension: Qualifiers: Hypertension type: primary hypertension Qualified Code(s): I10 - Essential (primary) hypertension Code(s): I10 - Essential (primary) hypertension Status: Acute Assessment and Plan: * Continue with metoprolol. * BP is stable (5) Leukocytosis, unspecified: Qualifiers: Leukocytosis type: unspecified Qualified Code(s): D72.829 - Elevated white blood cell count, unspecified Code(s): D72.829 - Elevated white blood cell count, unspecified Status: Acute Assessment and Plan: * WBC slightly elevated at 15.1 * Could be related to UTI * Chest xray shows no acute abnormality * Start ceftriaxone * Send urine culture * trend labs (6) Transaminitis: Code(s): R74.01 - Elevation of levels of liver transaminase levels Status: Acute Assessment and Plan: * AST mildly elevated 47 * T. Bili 1.5 * Continue to trend labs * Hep panel in the am * RUQ ultrasound ordered * adjust therapy as indicated (7) Abnormal finding on urinalysis: Code(s): R82.90 - Unspecified abnormal findings in urine Status: Acute Assessment and Plan: * UA shows leukocyte esterase * Ceftriaxone started * Trend urine output * adjust therapy as indicated * Culture ordered Subjective Date/time seen: 05/27/23 12:41 Interval history: No complaints of pain. When asked how she is feeling replies ?I do not know ?. Review of Systems Review of Systems: ROS unobtainable: Yes unobtainable due to medical condition Exam Narrative: General: malnourished, chronically ill 83-year-old female, laying in bed, in NAD HEENMT: normocephalic, atraumatic, EOMI, sclerae anicteric, moist oral mucos
[2023-05-27 14:35] VITALS: BP 163/97; PULSE 81; RESP 17; TEMP 36.7; O2SAT 97
[2023-05-27 21:05] VITALS: PULSE 81
[2023-05-27 21:27] VITALS: BP 100/76; PULSE 82; RESP 18; TEMP 36.7; O2SAT 94
[2023-05-27] MEDS: LORazepam INJ (*CRX) 2 MG/ML VIAL 0.5 MG IV PUSH (22:19)
[2023-05-28 05:43] LABS: Hematocrit 44.1 % (37.0-47.0); Hemoglobin 13.7 g/dL (12.0-15.0); Mean Corpuscular HGB Conc 31.1 g/dl (32-36); Mean Corpuscular Hemoglobin 31.4 pg (26-34); Mean Corpuscular Volume 100.9 fl (80-100); Mean Platelet Volume 9.9 fl (7.4-10.4); Platelet Count Result 187 k/mm3 (150-375); Red Blood Count 4.37 M/mm3 (4.2-5.4); Red Cell Distribution Width 13.6 % (11.5-14.5); White Blood Count 14.3 K/mm3 (4.5-10.0)
[2023-05-28 05:52] LABS: Anion Gap 6 mmol/L (8-16); Blood Urea Nitrogen 11 mg/dL (7-17); Calcium 7.8 mg/dL (8.4-10.2); Carbon Dioxide 22 mmol/L (22-30); Chloride 107 mmol/L (98-107); Estimated CRCL calculation 53 ml/min; Estimated Glomerular Filt Rate > 60; Glucose 103 mg/dL (65-110); Potassium 3.4 mmol/L (3.4-5.0); Sodium 135 mmol/L (137-145)
[2023-05-28 06:00] VITALS: BP 180/99; PULSE 78; RESP 18; TEMP 37.1; O2SAT 95
--- NOTE | 2023-05-28 08:02 | PM.PNORT ---
Progress Note: A&P Assessment and Plan (1) Femoral neck fracture: Qualifiers: Encounter type: initial encounter Fracture type: closed Laterality: left Qualified Code(s): S72.002A - Fracture of unspecified part of neck of left femur, initial encounter for closed fracture Code(s): S72.009A - Fracture of unspecified part of neck of unspecified femur, initial encounter for closed fracture Status: Acute Assessment and Plan: 83-year-old female with an acute femoral neck fracture. I have had discussions with the family regarding nonsurgical versus surgical treatment. I will review them again later today to see what they would like to do. Subjective Subjective Date/Time Seen: 05/28/23 08:02 Interval history: 83-year-old female with a number of medical issues. She has got an acute left subcapital femoral neck fracture. Recent notes reviewed and results noted. Currently being treated for UTI. Patient confused and unable to interact in a meaningful way. Family not available this a.m. as of yet. Exam Extrem: Other: Left hip flexed and rotated. Does not appear to be uncomfortable. Psych: Mental Status: mental status grossly abnormal Objective Data Vital Signs Vital Signs: Vital Signs - 24 hr 05/27/23 08:21 05/27/23 08:20 05/27/23 14:35 Temperature 98.0 F Pulse Rate 79 79 81 Respiratory Rate 16 17 Blood Pressure 163/97 H Pulse Oximetry 97 97 Oxygen Delivery Nasal Cannula Oxygen Flow Rate 2 05/27/23 21:05 05/27/23 21:27 05/28/23 06:00 Temperature 98.1 F 98.7 F Pulse Rate 81 82 78 Respiratory Rate 18 18 Blood Pressure 100/76 180/99 H Pulse Oximetry 94 95 Oxygen Delivery Oxygen Flow Rate Intake/Output Intake/Output: Intake & Output 05/25/23 05/26/23 05/27/23 05/28/23 23:59 23:59 23:59 23:59 Intake Total 1000 / 1000 2340 / 2340 1275 / 1275 Output Total 2150 / 2150 400 / 400 1800 / 1800 Balance 1000 / 1000 190 / 190 875 / 875 -1800 / -1800 Meds/Results Medications: Active Medications Generic Name Dose Route Start Last Admin Trade Name Freq PRN Reason Stop Dose Admin Acetaminophen 325 mg 05/26/23 00:07 Acetaminophen 325 Mg Suppository RECTAL Q4H PRN Mild Pain (1-3) or Fever Amlodipine Besylate 2.5 mg 05/28/23 09:00 Amlodipine Besylate 2.5 Mg Tablet PO QAM MADDIE Sodium Chloride 39.7 ml/ 0 ml 05/29/23 06:00 Ropivacaine 200 mg/ INFILTRATE 05/29/23 06:01 Epinephrine HCl 0.3 mg ONCE ONE Fentanyl Citrate 25 mcg 05/26/23 00:06 05/27/23 02:09 Fentanyl Citrate Inj (*Crx) 100 Mcg/2 Ml Vial IV PUSH 25 mcg Q4H PRN Administration Pain Rated 7-10 Sodium Chloride 1,000 mls @ 100 mls/hr 05/26/23 01:40 05/27/23 17:12 Normal Saline Iv IV CONT 100 mls/hr .Q10H MADDIE Administration Ceftriaxone Sodium 1 gm in 50 mls @ 100 mls/hr 05/26/23 15:00 05/27/23 15:45 Rocephin 1 Gm/Ns 50 Ml IVPB Infused Q24H MADDIE Infusion Lorazepam 0.5 mg 05/26/23 20:06 05/27/23 22:19 Lorazepam Inj (*Crx) 2 Mg/Ml Vial IV PUSH 0.5 mg Q4H PRN Administration Anxiety Metoprolol Tartrate 25 mg 05/26/23 00:15 05/27/23 21:05 Metoprolol Tartrate 25 Mg Tablet PO 25 mg Q12HR MADDIE Administration Radiology Results: ITS Impressions Hip/Pelvis X-Ray 05/25/23 14:41 Impression: 1: Displaced left femoral neck fracture. Head CT 05/25/23 15:49 IMPRESSION: 1. No fracture or acute intracranial process. 2. Age-related changes including moderate diffuse volume loss and moderate scattered white matter hypoattenuation consistent with chronic small vessel ischemic disease. Chest X-Ray 05/25/23 15:53 Impression: 1: No acute cardiopulmonary disease. Cervical Spine CT 05/25/23 15:56 IMPRESSION: 1. Moderate cervical spondylosis. No acute osseous abnormality. Upper Quadrant Ultrasound 05/26/23 21:37 IMPRESSION: 1: Small subcapsular hyperechoic 1.3 cm mass of the rig
[2023-05-28 08:56] VITALS: PULSE 78
[2023-05-28] MEDS: METOPROLOL TARTRATE 25 MG TABLET PO ×2 (08:56→21:00)
[2023-05-28] MEDS: amLODIPine BESYLATE 2.5 MG TABLET PO (08:57)
[2023-05-28 09:00] VITALS: PULSE 78; RESP 18; O2SAT 95
--- NOTE | 2023-05-28 10:53 | PM.IMPN ---
Progress Note: A&P Assessment and Plan (1) Femoral neck fracture: Qualifiers: Encounter type: initial encounter Fracture type: closed Laterality: left Qualified Code(s): S72.002A - Fracture of unspecified part of neck of left femur, initial encounter for closed fracture Code(s): S72.009A - Fracture of unspecified part of neck of unspecified femur, initial encounter for closed fracture Status: Acute Assessment and Plan: Presented to the ED with complaints of a fall Hip xray shows displaced left femoral neck fracture Ortho consultation noted Continue with analgesics. Urinary catheter due to immobility ORIF left hip planned for 05/29/2023 (2) UTI (urinary tract infection), bacterial: Code(s): N39.0 - Urinary tract infection, site not specified; A49.9 - Bacterial infection, unspecified Status: Acute Assessment and Plan: Gram-negative rods culture Continue ceftriaxone (3) Transaminitis: Code(s): R74.01 - Elevation of levels of liver transaminase levels Status: Acute Assessment and Plan: Resolved Right upper quadrant ultrasound consistent with small hemangioma of liver (4) Dementia: Qualifiers: Dementia behavioral or psychological symptom: unspecified whether behavioral, psychotic, or mood disturbance or anxiety Dementia severity: unspecified severity Dementia type: unspecified type Qualified Code(s): F03.90 - Unspecified dementia, unspecified severity, without behavioral disturbance, psychotic disturbance, mood disturbance, and anxiety Code(s): F03.90 - Unspecified dementia, unspecified severity, without behavioral disturbance, psychotic disturbance, mood disturbance, and anxiety Status: Acute Assessment and Plan: At her baseline according to family (5) Hyperthyroidism: Code(s): E05.90 - Thyrotoxicosis, unspecified without thyrotoxic crisis or storm Status: Acute Assessment and Plan: TSH 0.977 Stable (6) Hypertension: Qualifiers: Hypertension type: primary hypertension Qualified Code(s): I10 - Essential (primary) hypertension Code(s): I10 - Essential (primary) hypertension Status: Acute Assessment and Plan: Continue with metoprolol. BP is stable (7) Protein calorie malnutrition: Code(s): E46 - Unspecified protein-calorie malnutrition Status: Acute Assessment and Plan: Discussed with family bring in foods that she might like to eat Continue IV fluids for hydration Subjective Date/time seen: 05/28/23 10:53 Interval history: And a little bit of breakfast yesterday refusing to eat since then. Family has opted to proceed with her left hip ORIF. She was pulling at lines earlier today. Resting more comfortably now. Family at bedside. Review of Systems Review of Systems: ROS unobtainable: Yes unobtainable due to medical condition Exam Narrative: General: malnourished, chronically ill 83-year-old female, laying in bed, in NAD HEENMT: normocephalic, atraumatic, EOMI, sclerae anicteric, moist oral mucosa Respiratory: Clear to auscultation bilaterally without crackles, rhonchi or wheezes, nonlabored breathing Cardio: regular rate, regular rhythm with S1-S2 Abdomen: nondistended, normoactive bowel sounds, soft, nontender to palpation Extremities: no edema, erythema, or tenderness to palpation, DP pulses 2+ bilaterally Skin: no rashes or lesions, warm and dry MS: Right lower extremity abducted and externally rotated Neuro: awake, alert and oriented x1.5 (self, hospital but not which one, not year or month) Psych: Anxious. Poor judgement and insight. Objective Data Vital Signs Vital Signs: Vital Signs - 24 hr 05/27/23 14:35 05/27/23 21:05 05/27/23 21:27 Temperature 98.0 F 98.1 F Pulse Rate 81 81 82 Respiratory Rate 17 18 Blood Pressure 163/97 H 100/76 Pulse
[2023-05-28 14:00] VITALS: BP 169/108; PULSE 85; RESP 18; TEMP 36.7; O2SAT 94
[2023-05-28] MEDS: SODIUM CHLORIDE 0.9% IV 1,000 ML 100 ML IV CONT ×2 (14:37→23:55)
[2023-05-28 21:00] VITALS: PULSE 88
[2023-05-28] MEDS: LORazepam INJ (*CRX) 2 MG/ML VIAL 0.5 MG IV PUSH (21:09)
[2023-05-28 22:00] VITALS: BP 153/86; PULSE 88; RESP 18; TEMP 37.2; O2SAT 97
[2023-05-29] VITALS (14 sets, daily range): BP systolic 149–179; BP diastolic 73–108; PULSE 72–101; RESP 14–22; TEMP 36.1–36.7; O2SAT 96–100
[2023-05-29 06:45] LABS: Hematocrit 40.7 % (37.0-47.0); Hemoglobin 13.5 g/dL (12.0-15.0); Mean Corpuscular HGB Conc 33.2 g/dl (32-36); Mean Corpuscular Hemoglobin 31.5 pg (26-34); Mean Corpuscular Volume 94.9 fl (80-100); Mean Platelet Volume 9.8 fl (7.4-10.4); Platelet Count Result 195 k/mm3 (150-375); Red Blood Count 4.29 M/mm3 (4.2-5.4); Red Cell Distribution Width 13.8 % (11.5-14.5); White Blood Count 10.7 K/mm3 (4.5-10.0)
[2023-05-29 07:20] LABS: Anion Gap 0 mmol/L (8-16); Blood Urea Nitrogen 10 mg/dL (7-17); Calcium 7.7 mg/dL (8.4-10.2); Carbon Dioxide 26 mmol/L (22-30); Chloride 108 mmol/L (98-107); Estimated CRCL calculation 45 ml/min; Estimated Glomerular Filt Rate > 60; Glucose 84 mg/dL (65-110); Potassium 3.7 mmol/L (3.4-5.0); Sodium 134 mmol/L (137-145)
--- NOTE | 2023-05-29 09:30 | P.PNIM_ITS ---
Progress Note: A&P Assessment and Plan (1) Femoral neck fracture: Qualifiers: Encounter type: initial encounter Fracture type: closed Laterality: left Qualified Code(s): S72.002A - Fracture of unspecified part of neck of left femur, initial encounter for closed fracture Code(s): S72.009A - Fracture of unspecified part of neck of unspecified femur, initial encounter for closed fracture Status: Acute Assessment and Plan: * Presented to the ED with complaints of a fall * Hip xray shows displaced left femoral neck fracture * Ortho has been consulted. * Continue with analgesics. * Surgical intervention today * Turn * Urinary catheter (2) Dementia: Qualifiers: Dementia behavioral or psychological symptom: unspecified whether behavioral, psychotic, or mood disturbance or anxiety Dementia severity: unspecified severity Dementia type: unspecified type Qualified Code(s): F03.90 - Unspecified dementia, unspecified severity, without behavioral disturbance, psychotic disturbance, mood disturbance, and anxiety Code(s): F03.90 - Unspecified dementia, unspecified severity, without behavioral disturbance, psychotic disturbance, mood disturbance, and anxiety Status: Acute Assessment and Plan: * Appears to be advancing * Trend mental status * Seems to be at baseline (3) Hyperthyroidism: Code(s): E05.90 - Thyrotoxicosis, unspecified without thyrotoxic crisis or storm Status: Acute Assessment and Plan: * TSH 0.977 * Stable (4) Hypertension: Qualifiers: Hypertension type: primary hypertension Qualified Code(s): I10 - Essential (primary) hypertension Code(s): I10 - Essential (primary) hypertension Status: Acute Assessment and Plan: * Continue with metoprolol. * BP is stable at 148/66 * Continue to trend * Adjust therapy as indicated (5) Leukocytosis, unspecified: Qualifiers: Leukocytosis type: unspecified Qualified Code(s): D72.829 - Elevated white blood cell count, unspecified Code(s): D72.829 - Elevated white blood cell count, unspecified Status: Acute Assessment and Plan: * WBC slightly elevated at 15.1, Down to 10.7 * Could be related to UTI * Chest xray shows no acute abnormality * Start ceftriaxone * urine culture grew Morganella morganii * trend labs (6) Transaminitis: Code(s): R74.01 - Elevation of levels of liver transaminase levels Status: Acute Assessment and Plan: * AST mildly elevated 47 * T. Bili 1.5 05/27/2023 * Continue to trend labs * Hep panel negative * RUQ ultrasound 1.3 cm mass in the right hepatic lobe * adjust therapy as indicated (7) UTI (urinary tract infection), bacterial: Code(s): N39.0 - Urinary tract infection, site not specified; A49.9 - Bacterial infection, unspecified Status: Acute Assessment and Plan: * UA shows leukocyte esterase * Ceftriaxone continue * Trend urine output * adjust therapy as indicated * Culture Morganella morganii (8) Protein calorie malnutrition: Qualifiers: Protein-calorie malnutrition severity: moderate Qualified Code(s): E44.0 - Moderate protein-calorie malnutrition Code(s): E46 - Unspecified protein-calorie malnutrition Status: Acute
--- NOTE | 2023-05-29 09:30 | PM.IMPN ---
Progress Note: A&P Assessment and Plan (1) Femoral neck fracture: Qualifiers: Encounter type: initial encounter Fracture type: closed Laterality: left Qualified Code(s): S72.002A - Fracture of unspecified part of neck of left femur, initial encounter for closed fracture Code(s): S72.009A - Fracture of unspecified part of neck of unspecified femur, initial encounter for closed fracture Status: Acute Assessment and Plan: Presented to the ED with complaints of a fall Hip xray shows displaced left femoral neck fracture Ortho has been consulted. Continue with analgesics. Surgical intervention today Turn Urinary catheter (2) Dementia: Qualifiers: Dementia behavioral or psychological symptom: unspecified whether behavioral, psychotic, or mood disturbance or anxiety Dementia severity: unspecified severity Dementia type: unspecified type Qualified Code(s): F03.90 - Unspecified dementia, unspecified severity, without behavioral disturbance, psychotic disturbance, mood disturbance, and anxiety Code(s): F03.90 - Unspecified dementia, unspecified severity, without behavioral disturbance, psychotic disturbance, mood disturbance, and anxiety Status: Acute Assessment and Plan: Appears to be advancing Trend mental status Seems to be at baseline (3) Hyperthyroidism: Code(s): E05.90 - Thyrotoxicosis, unspecified without thyrotoxic crisis or storm Status: Acute Assessment and Plan: TSH 0.977 Stable (4) Hypertension: Qualifiers: Hypertension type: primary hypertension Qualified Code(s): I10 - Essential (primary) hypertension Code(s): I10 - Essential (primary) hypertension Status: Acute Assessment and Plan: Continue with metoprolol. BP is stable at 148/66 Continue to trend Adjust therapy as indicated (5) Leukocytosis, unspecified: Qualifiers: Leukocytosis type: unspecified Qualified Code(s): D72.829 - Elevated white blood cell count, unspecified Code(s): D72.829 - Elevated white blood cell count, unspecified Status: Acute Assessment and Plan: WBC slightly elevated at 15.1, Down to 10.7 Could be related to UTI Chest xray shows no acute abnormality Start ceftriaxone urine culture grew Morganella morganii trend labs (6) Transaminitis: Code(s): R74.01 - Elevation of levels of liver transaminase levels Status: Acute Assessment and Plan: AST mildly elevated 47 T. Bili 1.5 05/27/2023 Continue to trend labs Hep panel negative RUQ ultrasound 1.3 cm mass in the right hepatic lobe adjust therapy as indicated (7) UTI (urinary tract infection), bacterial: Code(s): N39.0 - Urinary tract infection, site not specified; A49.9 - Bacterial infection, unspecified Status: Acute Assessment and Plan: UA shows leukocyte esterase Ceftriaxone continue Trend urine output adjust therapy as indicated Culture Morganella morganii (8) Protein calorie malnutrition: Qualifiers: Protein-calorie malnutrition severity: moderate Qualified Code(s): E44.0 - Moderate protein-calorie malnutrition Code(s): E46 - Unspecified protein-calorie malnutrition Status: Acute Assessment and Plan: related to missing meals, weight loss Add ensure Time Spent With Patient Time: 38 minutes Time with patient: Greater than 35 minutes Subjective Date/time seen: 05/29/23 16:20 Interval history: patient was sleeping when I went to see her. She currently states that she had no issues except for a little bit of pain. She denies any chest pain or shortness of breath however complete review of systems unable to be obtained due to patient's mental status. Review of Systems Review of Systems: ROS unobtainable: Yes unobtainab
--- NOTE | 2023-05-29 12:39 | WPDANESEPPF ---
Anes - Initial Pre Proc Eval Procedure: Operation Date: 05/29/23 13:00 Proposed Procedures p Left Bipolar Hip Replacement - Florentino Hernandes MD Date/Time: 05/29/23 12:39 Surgeon: Edilson Edgar MD Pre Op Diagnosis: L Femoral Neck Fracture,GLF,Dementia Patient Data Age: 83 Gender: F Height: 1.68 m Weight: 48.2 kg Last Vital Signs Temp 36.6 C 05/29/23 05:53 Pulse 89 05/29/23 08:00 Resp 16 05/29/23 08:00 BP 149/94 H 05/29/23 05:53 Pulse Ox 100 05/29/23 08:00 O2 Del Method Room Air 05/29/23 08:00 O2 Flow Rate 2 05/27/23 08:20 Allergies Allergy/AdvReac Type Severity Reaction Status Date / Time hydralazine Allergy Unknown Verified 12/16/22 09:59 hydrocodone Allergy Unknown Verified 05/25/23 18:42 sulfamethoxazole Allergy Unknown Verified 12/16/22 09:59 trimethoprim Allergy Unknown Verified 12/16/22 09:59 Home Medications Medication Instructions Recorded Confirmed Type aspirin 81 mg tablet,delayed 81 mg PO DAILY 03/01/23 05/25/23 History release (Adult Aspirin Regimen) metoprolol tartrate 25 mg tablet 25 mg PO BID #180 tabs 04/09/23 05/25/23 Rx Laboratory Tests 05/29/23 06:22 WBC 10.7 H K/mm3 (4.5-10.0) RBC 4.29 M/mm3 (4.2-5.4) Hgb 13.5 g/dL (12.0-15.0) Hct 40.7 % (37.0-47.0) MCV 94.9 D fl (80-100) MCH 31.5 pg (26-34) MCHC 33.2 g/dl (32-36) RDW 13.8 % (11.5-14.5) Plt Count 195 k/mm3 (150-375) MPV 9.8 fl (7.4-10.4) Sodium 134 L mmol/L (137-145) Potassium 3.7 mmol/L (3.4-5.0) Chloride 108 H mmol/L (98-107) Carbon Dioxide 26 mmol/L (22-30) Anion Gap 0 L mmol/L (8-16) BUN 10 mg/dL (7-17) Creatinine 0.60 L mg/dL (0.7-1.0) Estim Creat Clear Calc 45 ml/min Estimated GFR > 60 (59 - ) Glucose 84 mg/dL (65-110) Calcium 7.7 L mg/dL (8.4-10.2) Patient hx anesthesia problems: none Family hx anesthesia problems: none Results Review: All pre-operative results and documents have been reviewed as part of the pre-operative evaluation. [facility] Past Medical History Medical History (Updated 05/29/23 @ 12:40 by Alex Kidd DO) Body mass index (BMI) less than 16.5 Body mass index (BMI) less than 20 Dementia Dysphagia Femoral neck fracture Left hip Hypertension Hyperthyroidism Leg weakness, bilateral Low vitamin D level Severe mitral regurgitation Thyroid nodule TIA (transient ischemic attack) Surgical History Surgical History History of laparoscopic appendectomy History of tonsillectomy and adenoidectomy Hx of cholecystectomy Family History Family History Father Thyroid cancer Mother Arthritis Sibling Agent Rogers poisoning Leukemia Other Diabetes mellitus Hypertension Social History Social History Social History: The patient resides at [facility]. The patient denies any tobacco use. The patient is . 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 She has 3 children listed as her contacts. 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
--- NOTE | 2023-05-29 12:41 | SUR.PREOP ---
pt able to state first name,daughter and son at side, son poa.
--- NOTE | 2023-05-29 12:42 | PCNFU ---
Nutrition Follow-Up Complete: Inadequate oral intake related to end-stage dementia as evidenced by 0% lunch Adequate intake at least 50% meals and supplements - Not meeting goal Maintain weight during admission _ Goal being met. Goal: Pt current nutrition is NPO today for hip surgery. Previous diet: Regular. Intakes 0-5%, drinking some Ensure Enlive. Nutrition recommendation: Continue regular diet and Ensure Enlive TID when diet is advanced. Last recorded weight is 48.2 kg. Bowel Motility: +1 BM today 05/29/23 Labs Reviewed: Alb 3.1, Na 134, Cre 0.6 Meds Noted: Rocephin, Ativan, fentanyl Skin: WNL Additional Notes: NPO today for hip surgery. Has been refusing meals related to end-stage dementia. Ate a couple of cookies brought in by family. Pt is DNR, no aggressive nutrition intervention like tube feeding is warranted. Continue with current care plan. Agree with orders. Monitor intakes, weights, labs, supplement tolerance, plan of care Follow up in 3 days
[2023-05-29] MEDS: LACTATED RINGERS 1,000 ML 30 ML IV CONT (12:58)
--- NOTE | 2023-05-29 13:07 | WPDHPUPDATE1 ---
History and Physical Update Update Date/Time: 05/29/23 13:07 History and Physical has been reviewed, including an updated exam of the patient. There are NO changes in the patient's condition. Risks, benefits, and alternatives have been discussed and questions answered. Patient agrees to proceed with procedure.
[2023-05-29] MEDS: ceFAZolin 2 GM/D5W 50 ML 2 GM/50 ML BAG IVPB (13:48)
--- NOTE | 2023-05-29 15:33 | P.OP_ITS ---
Procedure Note - Detailed Date of Procedure 05/29/23 Pre-op Diagnosis L Femoral Neck Fracture Post-op Diagnosis Same Procedure Performed Bipolar left hip replacement Surgeon Florentino Hernandes MD Patent Leather Sorter Domenic Conrad Anesthesia General Description of Procedure The patient was identified and proper site identified, then taken back to the operating room and transferred to the OR table. After general anesthetic induction and intubation, the patient was positioned in the right lateral dec ubitus position in the usual manner for a left hip procedure, and secured with padded hip positioner making sure the torso and extremities were properly padded. The left lower extremity was prepped and draped in the usual sterile fashion. A curvilinear incision was made over the greater trochanter and sharp dissection carried down through the subcutaneous tissue to the gluteus fascia and IT band which were divided in line with the incision. The anterior 1/2 of the abductors were sharply dissected off the greater trochanter developing the interval between the abductors and the capsule. The capsule was divided in an inverted-T fashion exposing the fracture site. A neck cut was made about one fingerbreadth above the level of the lesser trochanter. Head fragment was removed and the acetabulum cleared of debris. The acetabulum was sized to 47 mm. The proximal femur was prepared for the size 11 Press-Fit fracture stem. Trial reduction was undertaken and the hip was noted to be stable through range of motion. Trial components were removed. The real size 11 fracture stem was seated . Through trialing it was noted that a size 36, minus six head with 47 cup configuration gave yazidi of leg lengths with excellent stability. The neck of the femoral component was cleaned and dried and the real components in those sizes were attached to the femoral stem. After final thorough lavage of the joint, the hip was again reduced. The capsule and abbey-incisional tissues were infiltrated with 60 cubic centimeters of arthroplasty solution. The capsule was repaired with #2 Vicryl suture. The abductors were repaired to the greater trochanter with #5 Ethibond suture passed through a bony bridge. The deep fascia was reapproximated with 0 looped PDS suture. Deeper layers of the subcu reapproximated with 0 looped PD . 2-0 strata fix and tissue adhesive were used for the skin, and a sterile dressing was applied. Procedure was well tolerated and there were no known intraoperative complications. Estimated Blood Loss 150 Urine Output 800 Drains No Packing No Pathology None sent Complications No immediate complications Condition Stable Disposition PACU [facility] Billing Surgery - Charge Forward: Surgery Billing ([id number])
--- NOTE | 2023-05-29 15:55 | SUR.PHASEI ---
Notified Dr. Andre of patient's elevated BP. Dr. Andre at bedside. No orders to treat BP at this time.
[2023-05-29] MEDS: fentaNYL CITRATE INJ (*CRX) 100 MCG/2 ML VIAL 25 MCG IV PUSH ×2 (16:15→16:27)
[2023-05-29] MEDS: SODIUM CHLORIDE 0.9% IV 1,000 ML 100 ML IV CONT (17:14)
[2023-05-29] MEDS: ACETAMINOPHEN 325 MG TABLET 650 MG PO ×2 (17:36→21:50)
[2023-05-29] MEDS: SENNA/DOCUSATE SODIUM TABLET 2 TAB PO (17:36)
[2023-05-29] MEDS: METOPROLOL TARTRATE 25 MG TABLET PO (21:50)
[2023-05-29] MEDS: ASPIRIN 325 MG ENTERIC TABLET PO (21:50)
[2023-05-30] MEDS: MORPHINE SULFATE (*CRX) 2 MG/ML INJ IV PUSH (04:23)
[2023-05-30] MEDS: SODIUM CHLORIDE 0.9% IV 1,000 ML 100 ML IV CONT ×3 (05:32→23:26)
[2023-05-30 05:57] LABS: Basophils Percent Auto 0.1 % (0.2-1.2); Eosinophils Percent Auto 0.1 % (0-4.4); Hematocrit 35.6 % (37.0-47.0); Hemoglobin 11.8 g/dL (12.0-15.0); Immature Granulocyte Absolute 0.09 K/mm3 (0.00-0.031); Immature Granulocyte Percent A 0.6 % (0-0.5); Lymphocytes Absolute Auto 0.56 K/mm3 (0.9-3.2); Mean Corpuscular HGB Conc 33.1 g/dl (32-36); Mean Corpuscular Hemoglobin 31.2 pg (26-34); Mean Corpuscular Volume 94.2 fl (80-100); Mean Platelet Volume 9.8 fl (7.4-10.4); Monocytes Absolute Auto 1.5 K/mm3 (0.1-0.6); Monocytes Percent Auto 10.4 % (2.6-8.5); Neutrophils Absolute Auto 11.8 K/mm3 (1.3-6.7); Neutrophils Percent Auto 84.8 % (45.5-73.1); Platelet Count Result 181 k/mm3 (150-375); Red Blood Count 3.78 M/mm3 (4.2-5.4); Red Cell Distribution Width 13.3 % (11.5-14.5); White Blood Count 13.9 K/mm3 (4.5-10.0)
[2023-05-30 06:07] LABS: Alanine Aminotransferase 16 U/L (6-35); Albumin Level 2.5 g/dL (3.5-5.1); Alkaline Phosphatase 68 U/L (38-126); Anion Gap -1 mmol/L (8-16); Aspartate Amino Transferase 33 U/L (14-36); Bilirubin,Total 0.6 mg/dL (0.2-1.3); Blood Urea Nitrogen 17 mg/dL (7-17); Calcium 8.1 mg/dL (8.4-10.2); Carbon Dioxide 27 mmol/L (22-30); Chloride 107 mmol/L (98-107); Estimated CRCL calculation 45 ml/min; Estimated Glomerular Filt Rate > 60; Glucose 136 mg/dL (65-110); Potassium 3.9 mmol/L (3.4-5.0); Sodium 133 mmol/L (137-145)
[2023-05-30 06:13] VITALS: BP 104/58; PULSE 103; RESP 20; TEMP 37.6; O2SAT 98
[2023-05-30] MEDS: polyethylene glycoL 3350 17 GM POWD.PACK PO (08:54)
[2023-05-30 08:56] VITALS: PULSE 80
[2023-05-30] MEDS: SENNA/DOCUSATE SODIUM TABLET 2 TAB PO ×2 (08:56→17:01)
[2023-05-30] MEDS: ASPIRIN 325 MG ENTERIC TABLET PO ×2 (08:56→21:43)
[2023-05-30] MEDS: amLODIPine BESYLATE 2.5 MG TABLET PO (08:56)
[2023-05-30] MEDS: METOPROLOL TARTRATE 25 MG TABLET PO ×2 (08:56→21:43)
[2023-05-30 09:40] VITALS: O2SAT 99
--- NOTE | 2023-05-30 10:53 | WPDANESPN ---
Anes - Prog Note Post-Op Date/Time: 05/30/23 10:53 Vital Signs: Last Vital Signs Temp 37.6 C H 05/30/23 06:13 Pulse 80 05/30/23 08:56 Resp 20 05/30/23 06:13 BP 104/58 L 05/30/23 06:13 Pulse Ox 99 05/30/23 09:40 O2 Del Method Nasal Cannula 05/30/23 09:40 O2 Flow Rate 1 05/30/23 09:40 Pain Score (VAS): 0 I/O: Intake & Output 05/29/23 05/30/23 05/30/23 23:59 07:59 15:59 Intake Total 540 1240 Output Total 380 300 Balance 160 940 Laboratory Tests 05/30/23 05:46 05/30/23 05:46 05/30/23 05:46 WBC 13.9 H RBC 3.78 L Hgb 11.8 L Hct 35.6 L MCV 94.2 MCH 31.2 MCHC 33.1 RDW 13.3 Plt Count 181 MPV 9.8 Immature Gran % (Auto) 0.6 H Neut % (Auto) 84.8 H Lymph % (Auto) 4.0 L Pitkin % (Auto) 10.4 H Eos % (Auto) 0.1 Baso % (Auto) 0.1 L Lymph # (Auto) 0.56 L Pitkin # (Auto) 1.5 H Eos # (Auto) 0.0 Baso # (Auto) 0.0 Abs Immat Gran (auto) 0.09 H Absolute Neuts (auto) 11.8 H Absolute Nucleated RBC 0.0 Nucleated RBC % 0.0 Sodium 133 L Potassium 3.9 Chloride 107 Carbon Dioxide 27 Anion Gap -1 L BUN 17 Creatinine 0.60 L Estim Creat Clear Calc 45 Estimated GFR > 60 Glucose 136 H Calcium 8.1 L Magnesium 2.0 Total Bilirubin 0.6 AST 33 ALT 16 Alkaline Phosphatase 68 Total Protein 5.0 L Albumin 2.5 L Patient Feedback: Patient satisfied with anesthetic care.
[2023-05-30] MEDS: ACETAMINOPHEN 325 MG TABLET 650 MG PO ×3 (12:19→23:27)
--- NOTE | 2023-05-30 12:57 | PM.PNORT ---
Progress Note: A&P Assessment and Plan (1) History of partial replacement of left hip joint using bipolar prosthesis: Code(s): Z96.642 - Presence of left artificial hip joint Status: Acute (2) Femoral neck fracture: Qualifiers: Encounter type: initial encounter Fracture type: closed Laterality: left Qualified Code(s): S72.002A - Fracture of unspecified part of neck of left femur, initial encounter for closed fracture Code(s): S72.009A - Fracture of unspecified part of neck of unspecified femur, initial encounter for closed fracture Status: Acute Plan 83-year-old female postop day 1 after left bipolar hip arthroplasty due to femoral neck fracture. No issues at the incision site. She is still quite a bit confused due to other underlying medical issues. She will continue to mobilize with therapy to the best of her ability. She can be full weight-bearing on the left lower extremity. Following. Subjective Subjective Date/Time Seen: 05/30/23 12:57 Interval history: 83-year-old female still quite a bit confused during exam today. She is now postop day 1 after left bipolar hip. No issues at the incision site. Review of Systems Review of Systems: ROS unobtainable: Yes unobtainable due to medical condition Exam Const: General: cooperative Nutritional Appearance: average body habitus HENMT: Head: normocephalic and atraumatic Mouth: Yes moist mucous membranes Eyes: General: appearance normal, both eyes and all related structures Alignment and Position: alignment normal Pupils: Equal, round and reactive pupils present Neck: Neck: normal visual inspection Chest: Chest palpation & inspection: normal inspection of the chest Resp: Effort & Inspection: normal respiratory effort GI: Inspection: normal to inspection and non-distended GI Palp: Yes Soft to palpation and No Tenderness to palpation present (GI) Extrem: Other: Exam of the left hip demonstrates a clean and dry surgical dressing. Mild ecchymosis distal to the surgical site which is expected with the recent surgical procedure. Neurovascular status left lower extremity is intact. Objective Data Vital Signs Vital Signs: Vital Signs - 24 hr 05/29/23 15:55 05/29/23 16:10 05/29/23 16:25 Temperature 98.1 F Pulse Rate 101 H 97 98 Respiratory Rate 22 H 18 15 Blood Pressure 179/104 H 166/94 H 177/108 H Pulse Oximetry 98 98 99 Oxygen Delivery Simple Face Mask Simple Face Mask Room Air Oxygen Flow Rate 8 8 05/29/23 16:40 05/29/23 16:49 05/29/23 17:05 Temperature 97.1 F L Pulse Rate 97 92 88 Respiratory Rate 16 14 16 Blood Pressure 167/95 H 166/96 H 165/85 H Pulse Oximetry 96 98 98 Oxygen Delivery Nasal Cannula Nasal Cannula Oxygen Flow Rate 3 3 05/29/23 17:20 05/29/23 17:50 05/29/23 18:55 Temperature 97.1 F L 97.3 F L 97.4 F L Pulse Rate 86 97 88 Respiratory Rate 16 16 16 Blood Pressure 164/98 H 165/96 H 163/83 H Pulse Oximetry 99 100 100 Oxygen Delivery Oxygen Flow Rate 05/29/23 21:50 05/29/23 22:35 05/30/23 06:13 Temperature 98.1 F 99.7 F H Pulse Rate 72 100 103 H Respiratory Rate 16 20 Blood Pressure 158/90 H 104/58 L Pulse Oximetry 100 98 Oxygen Delivery Oxygen Flow Rate 05/30/23 08:56 05/30/23 09:03 05/30/23 09:40 Temperature Pulse Rate 80 Respiratory Rate Blood Pressure Pulse Oximetry 99 Oxygen Delivery Room Air Nasal Cannula Oxygen Flow Rate 1 Intake/Output Intake/Output: Intake & Output 05/27/23 05/28/23 05/29/23 05/30/23 23:59 23:59 23:59 23:59 Intake Total 1275 2150 590 1360 Output Total 400 3100 2730 300 Balance 875 950 -2140 1060 Meds/Results Medications: Active Medications Generic Name Dose Route Start Last Admin Trade Name Freq PRN Reason Stop Dose Admin Acetaminophen 325 mg 05/26/23 00:07 Acetaminophen 325 Mg Suppository RECTAL Q4H PRN Mild Pain (1-3) or Fever Acetaminophen 650 mg
--- NOTE | 2023-05-30 13:01 | PM.IMPN ---
Progress Note: A&P Assessment and Plan (1) UTI (urinary tract infection), bacterial: Code(s): N39.0 - Urinary tract infection, site not specified; A49.9 - Bacterial infection, unspecified Status: Acute (2) Protein calorie malnutrition: Qualifiers: Protein-calorie malnutrition severity: moderate Qualified Code(s): E44.0 - Moderate protein-calorie malnutrition Code(s): E46 - Unspecified protein-calorie malnutrition Status: Acute (3) Abnormal finding on urinalysis: Code(s): R82.90 - Unspecified abnormal findings in urine Status: Acute (4) Transaminitis: Code(s): R74.01 - Elevation of levels of liver transaminase levels Status: Acute (5) Leukocytosis, unspecified: Qualifiers: Leukocytosis type: unspecified Qualified Code(s): D72.829 - Elevated white blood cell count, unspecified Code(s): D72.829 - Elevated white blood cell count, unspecified Status: Acute (6) Femoral neck fracture: Qualifiers: Encounter type: initial encounter Fracture type: closed Laterality: left Qualified Code(s): S72.002A - Fracture of unspecified part of neck of left femur, initial encounter for closed fracture Code(s): S72.009A - Fracture of unspecified part of neck of unspecified femur, initial encounter for closed fracture Status: Acute (7) Dementia: Qualifiers: Dementia behavioral or psychological symptom: unspecified whether behavioral, psychotic, or mood disturbance or anxiety Dementia severity: unspecified severity Dementia type: unspecified type Qualified Code(s): F03.90 - Unspecified dementia, unspecified severity, without behavioral disturbance, psychotic disturbance, mood disturbance, and anxiety Code(s): F03.90 - Unspecified dementia, unspecified severity, without behavioral disturbance, psychotic disturbance, mood disturbance, and anxiety Status: Acute Plan 83-year-old female patient who resides at a memory care unit at [facility], presented with ground level fall, found to have femoral neck fracture. Ortho was consulted, s/p left bipolar hip arthroplasty. 1)Left Hip Fracture: S/p left hip bipolar arthroplasty Post op care as per surgical team PT/OT Pain control 2)Dementia: More confused post operatively which is expected 3)HTN:c/w Metoprolol 4)UTI: c/w Ceftazidime Growing Morganella 5)Severe Protein Calorie Malnutrition: Encourage PO intake 6)Code:DNR 7)DVT ppx:c/w ASA BID 8)Dispo:pending improvement Time Spent With Patient Time with patient: 25 - 35 minutes Subjective Date/time seen: 05/30/23 13:01 Interval history: very confused this morning Review of Systems Review of Systems: ROS unobtainable: Yes unobtainable due to mental status Exam Narrative: General: well-nourished, chronically ill 83-year-old female Neuro: awake, alert but confused HEENMT: normocephalic, atraumatic, EOMI, sclerae anicteric, moist oral mucosa Respiratory: Clear to auscultation bilaterally without crackles, rhonchi or wheezes, nonlabored breathing Cardio: regular rate, regular rhythm with S1-S2 Abdomen: nondistended, normoactive bowel sounds, soft, nontender to palpation Extremities: no edema, erythema, or tenderness to palpation, DP pulses 2+ bilaterally Skin: no rashes or lesions, warm and dry Objective Data Vital Signs Vital Signs: Vital Signs - 24 hr 05/29/23 15:55 05/29/23 16:10 05/29/23 16:25 Temperature 98.1 F Pulse Rate 101 H 97 98 Respiratory Rate 22 H 18 15 Blood Pressure 179/104 H 166/94 H 177/108 H Pulse Oximetry 98 98 99 Oxygen Delivery Simple Face Mask Simple Face Mask Room Air Oxygen Flow Rate 8 8 05/29/23 16:40 05/29/23 16:49 05/29/23 17:05 Temperature 97.1 F L Pulse Rate 97 92 88 Respiratory Rate 16 14 16 Blood Pressure 167/95 H 166/96 H 165/85 H Pulse Oximetry 96 98 98 Oxygen Delivery Nasal Cannula Nasal Cannula Oxygen Flow Rate 3 3
--- NOTE | 2023-05-30 13:17 | PCPTNOTE ---
On 05/30/23, the student, VLAD Buchanan, provided care and completed [facility] documentation on this patient. I have reviewed the student's documentation and agree with the findings.
--- NOTE | 2023-05-30 13:45 | PCOTNOTE ---
Attempted to see pt. for occupational therapy evaluation. Pt. unwilling to participate at this time. Attempted to educate pt. on benefits of participation, pt. repeatedly resisting and stating it's needs to cool off while referencing her L hip. Nursing aware. Following
[2023-05-30 14:35] VITALS: BP 154/81; PULSE 86; RESP 14; TEMP 36.4; O2SAT 93
[2023-05-30] MEDS: LORazepam INJ (*CRX) 2 MG/ML VIAL 0.5 MG IV PUSH ×2 (18:20→23:27)
[2023-05-30 20:38] VITALS: BP 132/59; PULSE 80; RESP 18; TEMP 36.5; O2SAT 100
[2023-05-30 21:43] VITALS: PULSE 80
[2023-05-31] MEDS: MORPHINE SULFATE (*CRX) 2 MG/ML INJ IV PUSH ×2 (04:22→13:29)
[2023-05-31 05:04] VITALS: BP 158/77; PULSE 78; RESP 18; TEMP 36.5; O2SAT 100
[2023-05-31 06:08] LABS: Basophils Percent Auto 0.2 % (0.2-1.2); Eosinophils Absolute Auto 0.2 K/mm3 (0-0.3); Eosinophils Percent Auto 1.6 % (0-4.4); Hematocrit 34.4 % (37.0-47.0); Hemoglobin 11.5 g/dL (12.0-15.0); Immature Granulocyte Absolute 0.11 K/mm3 (0.00-0.031); Immature Granulocyte Percent A 0.8 % (0-0.5); Lymphocytes Absolute Auto 1.02 K/mm3 (0.9-3.2); Lymphocytes Percent Auto 7.6 % (18.3-44.2); Mean Corpuscular HGB Conc 33.4 g/dl (32-36); Mean Corpuscular Hemoglobin 32.1 pg (26-34); Mean Corpuscular Volume 96.1 fl (80-100); Mean Platelet Volume 9.8 fl (7.4-10.4); Monocytes Absolute Auto 1.4 K/mm3 (0.1-0.6); Monocytes Percent Auto 10.7 % (2.6-8.5); Neutrophils Absolute Auto 10.7 K/mm3 (1.3-6.7); Neutrophils Percent Auto 79.1 % (45.5-73.1); Platelet Count Result 201 k/mm3 (150-375); Red Blood Count 3.58 M/mm3 (4.2-5.4); Red Cell Distribution Width 13.8 % (11.5-14.5); White Blood Count 13.5 K/mm3 (4.5-10.0)
[2023-05-31 06:15] LABS: Anion Gap 2 mmol/L (8-16); Blood Urea Nitrogen 15 mg/dL (7-17); Calcium 7.9 mg/dL (8.4-10.2); Carbon Dioxide 30 mmol/L (22-30); Chloride 107 mmol/L (98-107); Estimated CRCL calculation 45 ml/min; Estimated Glomerular Filt Rate > 60; Glucose 88 mg/dL (65-110); Potassium 3.2 mmol/L (3.4-5.0); Sodium 139 mmol/L (137-145)
[2023-05-31 08:37] VITALS: PULSE 110
[2023-05-31] MEDS: ASPIRIN 325 MG ENTERIC TABLET PO ×2 (08:37→20:50)
[2023-05-31] MEDS: amLODIPine BESYLATE 2.5 MG TABLET PO (08:37)
[2023-05-31] MEDS: METOPROLOL TARTRATE 25 MG TABLET PO ×2 (08:37→20:50)
[2023-05-31] MEDS: SENNA/DOCUSATE SODIUM TABLET 2 TAB PO (09:20)
[2023-05-31] MEDS: polyethylene glycoL 3350 17 GM POWD.PACK PO (09:21)
[2023-05-31] MEDS: POTASSIUM CHLORIDE 20 MEQ PACKET (FOR LIQUID) 40 MEQ PO ×2 (10:33→12:04)
[2023-05-31] MEDS: ACETAMINOPHEN 325 MG TABLET 650 MG PO ×2 (12:04→17:10)
--- NOTE | 2023-05-31 13:07 | PM.IMPN ---
Progress Note: A&P Assessment and Plan (1) UTI (urinary tract infection), bacterial: Code(s): N39.0 - Urinary tract infection, site not specified; A49.9 - Bacterial infection, unspecified Status: Acute (2) Protein calorie malnutrition: Qualifiers: Protein-calorie malnutrition severity: moderate Qualified Code(s): E44.0 - Moderate protein-calorie malnutrition Code(s): E46 - Unspecified protein-calorie malnutrition Status: Acute (3) Abnormal finding on urinalysis: Code(s): R82.90 - Unspecified abnormal findings in urine Status: Acute (4) Transaminitis: Code(s): R74.01 - Elevation of levels of liver transaminase levels Status: Acute (5) Leukocytosis, unspecified: Qualifiers: Leukocytosis type: unspecified Qualified Code(s): D72.829 - Elevated white blood cell count, unspecified Code(s): D72.829 - Elevated white blood cell count, unspecified Status: Acute (6) Femoral neck fracture: Qualifiers: Encounter type: initial encounter Fracture type: closed Laterality: left Qualified Code(s): S72.002A - Fracture of unspecified part of neck of left femur, initial encounter for closed fracture Code(s): S72.009A - Fracture of unspecified part of neck of unspecified femur, initial encounter for closed fracture Status: Acute (7) Dementia: Qualifiers: Dementia behavioral or psychological symptom: unspecified whether behavioral, psychotic, or mood disturbance or anxiety Dementia severity: unspecified severity Dementia type: unspecified type Qualified Code(s): F03.90 - Unspecified dementia, unspecified severity, without behavioral disturbance, psychotic disturbance, mood disturbance, and anxiety Code(s): F03.90 - Unspecified dementia, unspecified severity, without behavioral disturbance, psychotic disturbance, mood disturbance, and anxiety Status: Acute Plan 83-year-old female patient who resides at a memory care unit at [facility], presented with ground level fall, found to have femoral neck fracture. Ortho was consulted, s/p left bipolar hip arthroplasty. 1)Left Hip Fracture: S/p left hip bipolar arthroplasty Post op care as per surgical team PT/OT Pain control 2)Dementia: More confused post operatively which is expected 3)HTN:c/w Metoprolol 4)UTI: c/w Ceftazidime Growing Morganella 5)Severe Protein Calorie Malnutrition: Encourage PO intake Hypokalemia, supplement potassium 6)Code:DNR 7)DVT ppx:c/w ASA BID 8)Dispo:pending improvement Time Spent With Patient Time with patient: 25 - 35 minutes Subjective Date/time seen: 05/31/23 13:07 Interval history: still confused this morning Review of Systems Review of Systems: ROS unobtainable: Yes unobtainable due to mental status Exam Narrative: General: well-nourished, chronically ill 83-year-old female Neuro: awake, alert but confused HEENMT: normocephalic, atraumatic, EOMI, sclerae anicteric, moist oral mucosa Respiratory: Clear to auscultation bilaterally without crackles, rhonchi or wheezes, nonlabored breathing Cardio: regular rate, regular rhythm with S1-S2 Abdomen: nondistended, normoactive bowel sounds, soft, nontender to palpation Extremities: no edema, erythema, or tenderness to palpation, DP pulses 2+ bilaterally Skin: no rashes or lesions, warm and dry Objective Data Vital Signs Vital Signs: Vital Signs - 24 hr 05/30/23 14:35 05/30/23 20:38 05/30/23 21:43 Temperature 97.6 F 97.7 F Pulse Rate 86 80 80 Respiratory Rate 14 18 Blood Pressure 154/81 H 132/59 L Pulse Oximetry 93 100 Oxygen Delivery 05/31/23 05:04 05/31/23 08:37 05/31/23 09:00 Temperature 97.7 F Pulse Rate 78 110 H Respiratory Rate 18 Blood Pressure 158/77 H Pulse Oximetry 100 Oxygen Delivery Room Air Intake/Output Intake/Output: Intake & Output 05/28/23 05/29/23 05/30/23 05/31/23 23:59 23:59 23:
[2023-05-31 14:35] VITALS: BP 143/95; PULSE 119; RESP 16; TEMP 37.1; O2SAT 97
[2023-05-31 20:50] VITALS: PULSE 101
[2023-05-31 21:05] VITALS: BP 140/84; PULSE 110; RESP 18; TEMP 36.7; O2SAT 95
[2023-06-01] MEDS: ACETAMINOPHEN 500 MG TABLET 1000 MG PO ×4 (00:57→17:39)
[2023-06-01] MEDS: LORazepam INJ (*CRX) 2 MG/ML VIAL 0.5 MG IV PUSH ×2 (04:58→18:22)
[2023-06-01 06:00] VITALS: BP 116/64; PULSE 78; RESP 16; TEMP 36.2; O2SAT 100
[2023-06-01 06:38] LABS: Basophils Absolute Auto 0.1 K/mm3 (0.0-0.1); Basophils Percent Auto 0.6 % (0.2-1.2); Eosinophils Absolute Auto 0.5 K/mm3 (0-0.3); Eosinophils Percent Auto 4.7 % (0-4.4); Hematocrit 32.7 % (37.0-47.0); Hemoglobin 10.7 g/dL (12.0-15.0); Immature Granulocyte Absolute 0.19 K/mm3 (0.00-0.031); Immature Granulocyte Percent A 1.7 % (0-0.5); Lymphocytes Absolute Auto 1.03 K/mm3 (0.9-3.2); Lymphocytes Percent Auto 9.1 % (18.3-44.2); Mean Corpuscular HGB Conc 32.7 g/dl (32-36); Mean Corpuscular Hemoglobin 31.3 pg (26-34); Mean Corpuscular Volume 95.6 fl (80-100); Monocytes Absolute Auto 1.2 K/mm3 (0.1-0.6); Monocytes Percent Auto 10.5 % (2.6-8.5); Neutrophils Absolute Auto 8.3 K/mm3 (1.3-6.7); Neutrophils Percent Auto 73.4 % (45.5-73.1); Platelet Count Result 221 k/mm3 (150-375); Red Blood Count 3.42 M/mm3 (4.2-5.4); White Blood Count 11.3 K/mm3 (4.5-10.0)
[2023-06-01 06:50] LABS: Anion Gap 5 mmol/L (8-16); Blood Urea Nitrogen 17 mg/dL (7-17); Calcium 7.7 mg/dL (8.4-10.2); Carbon Dioxide 25 mmol/L (22-30); Chloride 108 mmol/L (98-107); Estimated CRCL calculation 39 ml/min; Estimated Glomerular Filt Rate > 60; Glucose 107 mg/dL (65-110); Sodium 138 mmol/L (137-145)
[2023-06-01 09:29] VITALS: PULSE 96
[2023-06-01] MEDS: amLODIPine BESYLATE 2.5 MG TABLET PO (09:29)
[2023-06-01] MEDS: METOPROLOL TARTRATE 25 MG TABLET PO ×2 (09:29→21:41)
[2023-06-01] MEDS: ASPIRIN 325 MG ENTERIC TABLET PO ×2 (09:30→21:42)
--- NOTE | 2023-06-01 10:52 | PCNFU ---
Nutrition Follow-Up Complete: Inadequate oral intake related to end-stage dementia as evidenced by 0% lunch Adequate intake at least 50% meals and supplements Maintain weight during admission Patient is progressing towards goal. We will continue current goal. Pt current nutrition is Regular. Nutrition recommendation:Enlive TID Last recorded weight is 48.2 kg. Bowel Motility:+BM reported 06/01 Labs Reviewed: Hct 32.7,Hgb 10.7 Meds Noted: Ativan, Lopressor. Skin:WNL Additional Notes: Patient remains on a regular diet. Intake has been improving 50% for breakfast today. She is consuming diet supplements of Ensure compact BID providing an additional 220 kcals and 9 gms protein. Agree with diet orders. Monitor intakes, weights, labs, supplement tolerance, plan of care Follow up in 5 days
--- NOTE | 2023-06-01 12:39 | PM.PNORT ---
Progress Note: A&P Assessment and Plan (1) History of partial replacement of left hip joint using bipolar prosthesis: Code(s): Z96.642 - Presence of left artificial hip joint Status: Acute (2) Femoral neck fracture: Qualifiers: Encounter type: initial encounter Fracture type: closed Laterality: left Qualified Code(s): S72.002A - Fracture of unspecified part of neck of left femur, initial encounter for closed fracture Code(s): S72.009A - Fracture of unspecified part of neck of unspecified femur, initial encounter for closed fracture Status: Acute Plan 83-year-old female postop day 3 after left bipolar hip arthroplasty due to femoral neck fracture. No issues at the incision site. Progressing as expected. Continue to mobilize with a walker if she is able. Following. Subjective Subjective Date/Time Seen: 06/01/23 12:39 Interval history: 83-year-old female still showing some confusion. She is now postop day 3 after left bipolar hip. Incision site is clean and dry. Review of Systems Review of Systems: ROS unobtainable: Yes unobtainable due to medical condition Exam Const: General: cooperative Nutritional Appearance: average body habitus HENMT: Head: normocephalic and atraumatic Mouth: Yes moist mucous membranes Eyes: General: appearance normal, both eyes and all related structures Alignment and Position: alignment normal Pupils: Equal, round and reactive pupils present Neck: Neck: normal visual inspection Chest: Chest palpation & inspection: normal inspection of the chest Resp: Effort & Inspection: normal respiratory effort GI: Inspection: normal to inspection and non-distended GI Palp: Yes Soft to palpation and No Tenderness to palpation present (GI) Extrem: Other: Exam of the left hip demonstrates a clean and dry surgical dressing. There is pain with mobility of the left hip. Neurovascular status left lower extremity is intact. Objective Data Vital Signs Vital Signs: Vital Signs - 24 hr 05/31/23 14:35 05/31/23 20:50 05/31/23 21:05 Temperature 98.7 F 98.1 F Pulse Rate 119 H 101 H 110 H Respiratory Rate 16 18 Blood Pressure 143/95 H 140/84 Pulse Oximetry 97 95 06/01/23 06:00 06/01/23 09:29 Temperature 97.1 F L Pulse Rate 78 96 Respiratory Rate 16 Blood Pressure 116/64 Pulse Oximetry 100 Intake/Output Intake/Output: Intake & Output 05/29/23 05/30/23 05/31/23 06/01/23 23:59 23:59 23:59 23:59 Intake Total 590 4090 1740 440 Output Total 2730 825 Balance -2140 3265 1740 440 Meds/Results Medications: Active Medications Generic Name Dose Route Start Last Admin Trade Name Freq PRN Reason Stop Dose Admin Acetaminophen 325 mg 05/26/23 00:07 Acetaminophen 325 Mg Suppository RECTAL Q4H PRN Mild Pain (1-3) or Fever Acetaminophen 1,000 mg 06/01/23 00:00 06/01/23 11:46 Acetaminophen 500 Mg Tablet PO 1,000 mg Q6H MADDIE Administration Amlodipine Besylate 2.5 mg 05/28/23 09:00 06/01/23 09:29 Amlodipine Besylate 2.5 Mg Tablet PO 2.5 mg QAM MADDIE Administration Aspirin 325 mg 05/29/23 21:00 06/01/23 09:30 Aspirin 325 Mg Enteric Tablet PO 325 mg Q12HR MADDIE Administration Lactated Ringer's 1,000 mls @ 30 mls/hr 05/29/23 12:50 05/31/23 22:33 Lr - Lactated Ringers Iv IV CONT Not Given .Q24H MADDIE Ceftazidime 1 gm/ Sodium 100 mls @ 200 mls/hr 05/30/23 10:00 06/01/23 09:30 Chloride IVPB Infused Q8H MADDIE Infusion Lorazepam 0.5 mg 05/26/23 20:06 06/01/23 04:58 Lorazepam Inj (*Crx) 2 Mg/Ml Vial IV PUSH 0.5 mg Q4H PRN Administration Anxiety Metoprolol Tartrate 25 mg 05/26/23 00:15 06/01/23 09:29 Metoprolol Tartrate 25 Mg Tablet PO 25 mg Q12HR MADDIE Administration Naloxone HCl 0.1 mg 05/29/23 16:50 Naloxone Hcl 0.4 Mg/Ml Vial IV PUSH Q2M PRN Opiate Reversal Ondansetron HCl 4 mg 05/29/23 12:48 Ondansetron Inj 4 Mg/2 Ml Vial
[2023-06-01] MEDS: levoFLOXacin 750 MG TABLET PO (15:52)
[2023-06-01 16:04] VITALS: BP 150/83; PULSE 90; RESP 18; TEMP 36.6; O2SAT 91
--- NOTE | 2023-06-01 17:53 | PM.IMPN ---
Progress Note: A&P Assessment and Plan (1) Femoral neck fracture: Qualifiers: Encounter type: initial encounter Fracture type: closed Laterality: left Qualified Code(s): S72.002A - Fracture of unspecified part of neck of left femur, initial encounter for closed fracture Code(s): S72.009A - Fracture of unspecified part of neck of unspecified femur, initial encounter for closed fracture Status: Acute Assessment and Plan: Patient brought in from [place] after a fall and found to have left Hip Fracture. S/p left hip bipolar arthroplasty now POD #3 Post op care as per surgical team. Continue PT/OT. Continue Pain control (2) UTI (urinary tract infection), bacterial: Code(s): N39.0 - Urinary tract infection, site not specified; A49.9 - Bacterial infection, unspecified Status: Acute Assessment and Plan: Patient with abnormal UA and UCx positive for Morganella. Has completed 7 days of treatment. (3) Protein calorie malnutrition: Qualifiers: Protein-calorie malnutrition severity: moderate Qualified Code(s): E44.0 - Moderate protein-calorie malnutrition Code(s): E46 - Unspecified protein-calorie malnutrition Status: Acute Assessment and Plan: Patient found to have severe Protein Calorie Malnutrition. Encourage PO intake. Continue supplements. (4) Leukocytosis, unspecified: Qualifiers: Leukocytosis type: unspecified Qualified Code(s): D72.829 - Elevated white blood cell count, unspecified Code(s): D72.829 - Elevated white blood cell count, unspecified Status: Acute Assessment and Plan: Related to above. WBC trending down. (5) Dementia: Qualifiers: Dementia behavioral or psychological symptom: unspecified whether behavioral, psychotic, or mood disturbance or anxiety Dementia severity: unspecified severity Dementia type: unspecified type Qualified Code(s): F03.90 - Unspecified dementia, unspecified severity, without behavioral disturbance, psychotic disturbance, mood disturbance, and anxiety Code(s): F03.90 - Unspecified dementia, unspecified severity, without behavioral disturbance, psychotic disturbance, mood disturbance, and anxiety Status: Acute Assessment and Plan: Stable. Patient not on medications on admission for dementia. Continue to follow-up (6) Hypertension: Qualifiers: Hypertension type: primary hypertension Qualified Code(s): I10 - Essential (primary) hypertension Code(s): I10 - Essential (primary) hypertension Status: Acute Assessment and Plan: Patient's blood pressure was reviewed on 06/01 Blood pressure remains mostly well controlled. Will continue current medications. Continue to monitor (7) Transaminitis: Code(s): R74.01 - Elevation of levels of liver transaminase levels Status: Acute Assessment and Plan: AST was 47 on admission. This has normalized. This has resolved. Plan Code:DNR DVT ppx:c/w ASA BID Dispo: Discharge when okay with Orthopedics Subjective Date/time seen: 06/01/23 17:53 Interval history: 83-year-old female patient who resides at a memory care unit at [facility], presented with ground level fall, found to have femoral neck fracture. Ortho was consulted, s/p left bipolar hip arthroplasty. Assuming care. Chart reviewed. Patient is alert but confused and unable to provide hx. Review of Systems Review of Systems: ROS unobtainable: Yes unobtainable due to mental status Exam Narrative: AF 97.9 150/83 90 18 91% ra Gen - NARD Chest - few basilar crackles, CV - RRR S1/S2 with occasional extra beat Abd - Soft, NT/ND, Positive BS Ext - slight pedal edema LLE. Left dressing is clean. dry and intact. Neuro - Alert but confused Psych - Nml mood and affect Skin - Warm and dry Objective Data Vital Signs Vital Signs: Vital Signs - 24 hr 05/31/23 20:
[2023-06-01 19:34] VITALS: BP 155/86; PULSE 97; RESP 18; TEMP 36.5; O2SAT 91
[2023-06-01 21:41] VITALS: PULSE 96
[2023-06-02] MEDS: ACETAMINOPHEN 500 MG TABLET 1000 MG PO ×2 (00:45→05:26)
[2023-06-02] MEDS: LORazepam INJ (*CRX) 2 MG/ML VIAL 0.5 MG IV PUSH (01:51)
[2023-06-02 03:56] VITALS: BP 158/86; PULSE 92; RESP 18; TEMP 36.6; O2SAT 91
--- NOTE | 2023-06-02 07:15 | PM.PNORT ---
Progress Note: A&P Assessment and Plan (1) History of partial replacement of left hip joint using bipolar prosthesis: Code(s): Z96.642 - Presence of left artificial hip joint Status: Resolved Plan Continue to mobilize. Awaiting placement. Following well she is in the hospital. Wound is glued so there are no ling to be removed. Can continue to be weight-bearing as tolerated using a walker. Subjective Subjective Date/Time Seen: 06/02/23 07:15 Post Op day: 7 Principal diagnosis: Status post left bipolar replacement Interval history: 83-year-old female with progressive dementia. She is one week out from left bipolar hip replacement. Hip doing well. Is experiencing some discomfort. On scheduled Tylenol for pain control. Exam Const: General: no acute distress Skin: Other: Left hip wound dry. Grossly motor and sensory function intact left lower extremity. Neuro: Speech: normal speech (Does not really answer questions well but does speak clearly) Objective Data Vital Signs Vital Signs: Vital Signs - 24 hr 06/01/23 09:29 06/01/23 16:04 06/01/23 19:34 Temperature 97.9 F 97.7 F Pulse Rate 96 90 97 Respiratory Rate 18 18 Blood Pressure 150/83 H 155/86 H Pulse Oximetry 91 91 Oxygen Delivery 06/01/23 21:41 06/01/23 20:00 06/02/23 03:56 Temperature 98 F Pulse Rate 96 92 Respiratory Rate 18 Blood Pressure 158/86 H Pulse Oximetry 91 Oxygen Delivery Room Air Intake/Output Intake/Output: Intake & Output 05/30/23 05/31/23 06/01/23 06/02/23 23:59 23:59 23:59 23:59 Intake Total 4090 / 4090 1740 / 1740 800 / 800 Output Total 825 / 825 Balance 3265 / 3265 1740 / 1740 800 / 800 Meds/Results Medications: Active Medications Generic Name Dose Route Start Last Admin Trade Name Freq PRN Reason Stop Dose Admin Acetaminophen 325 mg 05/26/23 00:07 Acetaminophen 325 Mg Suppository RECTAL Q4H PRN Mild Pain (1-3) or Fever Acetaminophen 1,000 mg 06/01/23 00:00 06/02/23 05:26 Acetaminophen 500 Mg Tablet PO 1,000 mg Q6H MADDIE Administration Amlodipine Besylate 2.5 mg 05/28/23 09:00 06/01/23 09:29 Amlodipine Besylate 2.5 Mg Tablet PO 2.5 mg QAM MADDIE Administration Aspirin 325 mg 05/29/23 21:00 06/01/23 21:42 Aspirin 325 Mg Enteric Tablet PO 325 mg Q12HR MADDIE Administration Lactated Ringer's 1,000 mls @ 30 mls/hr 05/29/23 12:50 06/02/23 00:04 Lr - Lactated Ringers Iv IV CONT Not Given .Q24H MADDIE Lorazepam 0.5 mg 05/26/23 20:06 06/02/23 01:51 Lorazepam Inj (*Crx) 2 Mg/Ml Vial IV PUSH 0.5 mg Q4H PRN Administration Anxiety Metoprolol Tartrate 25 mg 05/26/23 00:15 06/01/23 21:41 Metoprolol Tartrate 25 Mg Tablet PO 25 mg Q12HR MADDIE Administration Naloxone HCl 0.1 mg 05/29/23 16:50 Naloxone Hcl 0.4 Mg/Ml Vial IV PUSH Q2M PRN Opiate Reversal Ondansetron HCl 4 mg 05/29/23 12:48 Ondansetron Inj 4 Mg/2 Ml Vial IV PUSH ONCE PRN Nausea Ondansetron HCl 4 mg 05/29/23 16:50 Ondansetron Inj 4 Mg/2 Ml Vial IV PUSH Q4H PRN Nausea And Vomiting Polyethylene Glycol 17 gm 05/31/23 10:59 Polyethylene Glycol 3350 17 Gm Powd.Pack PO QAM PRN Constipation Radiology Results: ITS Impressions Hip/Pelvis X-Ray 05/25/23 14:41 Impression: 1: Displaced left femoral neck fracture. Head CT 05/25/23 15:49 IMPRESSION: 1. No fracture or acute intracranial process. 2. Age-related changes including moderate diffuse volume loss and moderate scattered white matter hypoattenuation consistent with chronic small vessel ischemic disease. Chest X-Ray 05/25/23 15:53 Impression: 1: No acute cardiopulmonary disease. Cervical Spine CT 05/25/23 15:56 IMPRESSION: 1. Moderate cervical spondylosis. No acute osseous abnormality. Upper Quadrant Ultrasound 05/26/23 21:37 IMPRESSION: 1: Small subcapsular hyperechoic 1.3 cm
[2023-06-02 07:25] VITALS: PULSE 110
[2023-06-02] MEDS: amLODIPine BESYLATE 2.5 MG TABLET PO (07:25)
[2023-06-02] MEDS: METOPROLOL TARTRATE 25 MG TABLET PO (07:25)
[2023-06-02] MEDS: ASPIRIN 325 MG ENTERIC TABLET PO (07:25)
[2023-06-02 08:00] VITALS: O2SAT 91
--- NOTE | 2023-06-02 09:50 | PM.DS ---
DS: Admitting Diagnosis Discharge Date 06/02/23 Admitting Diagnosis Fall DS: Discharge Diagnosis Discharge Diagnosis (1) Femoral neck fracture: Qualifiers: Encounter type: initial encounter Fracture type: closed Laterality: left Qualified Code(s): S72.002A - Fracture of unspecified part of neck of left femur, initial encounter for closed fracture Code(s): S72.009A - Fracture of unspecified part of neck of unspecified femur, initial encounter for closed fracture Status: Acute (2) UTI (urinary tract infection), bacterial: Code(s): N39.0 - Urinary tract infection, site not specified; A49.9 - Bacterial infection, unspecified Status: Acute (3) Protein calorie malnutrition: Qualifiers: Protein-calorie malnutrition severity: moderate Qualified Code(s): E44.0 - Moderate protein-calorie malnutrition Code(s): E46 - Unspecified protein-calorie malnutrition Status: Acute (4) Leukocytosis, unspecified: Qualifiers: Leukocytosis type: unspecified Qualified Code(s): D72.829 - Elevated white blood cell count, unspecified Code(s): D72.829 - Elevated white blood cell count, unspecified Status: Acute (5) Dementia: Qualifiers: Dementia behavioral or psychological symptom: unspecified whether behavioral, psychotic, or mood disturbance or anxiety Dementia severity: unspecified severity Dementia type: unspecified type Qualified Code(s): F03.90 - Unspecified dementia, unspecified severity, without behavioral disturbance, psychotic disturbance, mood disturbance, and anxiety Code(s): F03.90 - Unspecified dementia, unspecified severity, without behavioral disturbance, psychotic disturbance, mood disturbance, and anxiety Status: Acute (6) Hypertension: Qualifiers: Hypertension type: primary hypertension Qualified Code(s): I10 - Essential (primary) hypertension Code(s): I10 - Essential (primary) hypertension Status: Acute (7) Transaminitis: Code(s): R74.01 - Elevation of levels of liver transaminase levels Status: Acute DS: Summary Hospital Course Reason for hospitalization: 83-year-old female patient who resides at a memory care unit at [facility], presented with ground level fall and found to have femoral neck fracture. Please see H&P for details Hospital Course: Patient brought in from [place] after a fall and found to have a displaced left femoral neck fracture. Ortho was consulted and she underwent a left hip bipolar arthroplasty on 05/29/23. She tolerated the procedure well. She worked with PT/OT. She was also found to have an abnormal UA and UCx positive for Morganella. She completed 7 days of abx treatment. Patient has severe Protein Calorie Malnutrition. Dietary was consulted and supplements ordered. We encouraged PO intake. Patient with elevated WBC felt related to UTI and demargination from the hip fracture. WBC trended down. Patient not on medications on admission for dementia.?Blood pressure remained mostly well controlled.?AST was 47 on admission but normalized on repeat. She overall did well was able be discharged to rehab on 06/02/2023. Status at Discharge Cognitive/behavioral status at discharge: Stable Time Spent with Patient Time attestation: Total time spent providing and/or coordinating discharge services: 35 minutes Time spent: Greater than 30 minutes Exam Narrative: AF 98.0 158/86 110 18 91% ra Gen - NARD Chest -clear to auscultation bilaterally. CV - RRR S1/S2 with occasional extra beat Abd - Soft, NT/ND, Positive BS Ext - no pedal edema. Left lateral hip dressing is clean, dry and intact. Neuro - Alert but confused Psych - Nml mood and affect Skin - Warm and dry DS: Data Data Completed and Pending Completed studies during hospitalization: Pending at discharge 05/29/23 14:43 Surgical [PTH] Routine Discharge Plan Discharge At
[2023-06-02 11:39] LABS: SARS-CoV-2 RNA PCR Negative (Negative)
== END 2023-06-02 13:34 | DRG 522 ==
LOC: ANHED 16:29 → ANH3MED 17:23
PROVIDERS: Internal Medicine; Nurse Practitioner; Orthopaedic Surgery; Admitting Provider Family Medicine; Emergency Provider Physician Assistant; PCP Family Medicine; Visit Provider Internal Medicine
PROC: 0SRB02A Replacement of Left Hip Joint with Metal on Polyethylene Synthetic Substitute, Uncemented, Open Approach (ICD-10-PCS; CPT 27125; principal; 2023-05-29 13:00)
DX: S72.012A Unspecified intracapsular fracture of left femur, initial encounter for closed fracture (principal); N39.0 Urinary tract infection, site not specified; E44.0 Moderate protein-calorie malnutrition; I10 Essential (primary) hypertension; I34.0 Nonrheumatic mitral (valve) insufficiency; E05.90 Thyrotoxicosis, unspecified without thyrotoxic crisis or storm; B96.89 Other specified bacterial agents as the cause of diseases classified elsewhere; E55.9 Vitamin D deficiency, unspecified; R74.8 Abnormal levels of other serum enzymes; F03.90 Unspecified dementia, unspecified severity, without behavioral disturbance, psychotic disturbance, mood disturbance, and anxiety; Z20.822 Contact with and (suspected) exposure to COVID-19; W19.XXXA Unspecified fall, initial encounter; Z86.73 Personal history of transient ischemic attack (TIA), and cerebral infarction without residual deficits; Z79.82 Long term (current) use of aspirin
CPT/HCPCS: 36415; 70450; 71045; 72125; 73502; 76705; 80048; 80053; 80074; 81001; 82550; 83735; 84443; 85025; 85027; 85610; 85730; 87077; 87086; 87186; 87635; 88307; 88311; 93005; 96361; 96365; 96374; 96375; 96376; 97110; 97161; 97165; 97530; 97535; 99285; A9270; C1776; G0378; J0171; J0690; J0696; J0713; J1100; J2060; J2270; J2405; J2704; J2795; J3010; J7030; J7120

== ENCOUNTER 2023-06-03 01:57 | Emergency (ER) | payer MEDICARE, SELFPAY ==
--- NOTE | ~2023-06-03 | CT_ITS ---
EXAMINATION: CT cervical spine wo con DATE: 06/03/2023 02:34 INDICATION: Fall. TECHNIQUE: Computed tomography (CT) of the cervical spine was performed without intravenous contrast. Automated exposure control and iterative reconstruction technique were employed. The dose-length pro duct was 128.40 mGy-cm. COMPARISON: CT cervical spine 05/25/2023 FINDINGS: There are bilateral pleural effusions. There is 8 degrees levocurvature of cervicothoracic spine. There is mild kyphosis of lower cervical spine. Vertebral body heights are normal. There is se verely decreased disc height from C4-C5 through C6-C7. The following disc levels are specifically dis cussed: C2-C3: There is no uncovertebral joint osteoarthritis. There is mild bilateral facet joint osteoarthr itis. There is no neural foraminal stenosis. There is no central canal stenosis. C3-C4: There is mild bilateral uncovertebral joint osteoarthritis. There is severe right and moderate left facet joint osteoarthritis. There is mild bilateral neural foraminal stenosis. There is no cent ral canal stenosis. C4-C5: There is severe bilateral uncovertebral joint osteoarthritis. There is severe bilateral facet joint osteoarthritis. There is mild bilateral neural foraminal stenosis. There is mild central canal stenosis. C5-C6: There is severe right and mild left uncovertebral joint osteoarthritis. There is mild bilatera l facet joint osteoarthritis. There is mild bilateral neural foraminal stenosis. There is mild centra l canal stenosis. C6-C7: There is severe right and moderate left uncovertebral joint osteoarthritis. There is moderate right and mild left facet joint osteoarthritis. There is mild right neural foraminal stenosis. There is mild central canal stenosis. C7-T1: There is no uncovertebral joint osteoarthritis. There is moderate right and severe left facet joint osteoarthritis. There is mild left neural foraminal stenosis. There is no central canal stenosi s. IMPRESSION: 1. No fracture. 2. Severe cervical spondylosis. 3. Bilateral pleural effusions. Reviewed, dictated and finalized at location E.
--- NOTE | ~2023-06-03 | XR_ITS ---
EXAMINATION: XR pelvis 1-2V DATE: 06/03/2023 03:12 INDICATION: Fall post recent left hip surgery TECHNIQUE: An anteroposterior view of the pelvis was obtained. COMPARISON: 05/29/2023 and 05/25/2023 FINDINGS: Recently placed noncemented bipolar type left hip hemiarthroplasty appears to remain well seated in n ear-anatomic alignment. The distalmost tip of the arthroplasty is excluded from the [id number]. Mi ld osteoarthritis at the right hip and bilateral sacroiliac joints. Severe lower lumbar spondylosis. IMPRESSION: 1. Bipolar type left hip hemiarthroplasty in expected alignment. No acute osseous abnormality. Reviewed, dictated and finalized at location A. IMPRESSION: 1. Bipolar type left hip hemiarthroplasty in expected alignment. No acute osseo us abnormality.
--- NOTE | ~2023-06-03 | CT_ITS ---
EXAMINATION: CT brain wo con DATE: 06/03/2023 02:34 INDICATION: Fall. TECHNIQUE: Computed tomography (CT) of the head was performed without intravenous contrast. The mA wa s adjusted according to patient size. Iterative reconstruction technique was employed. The dose-lengt h product was 605.33 mGy-cm. COMPARISON: Head CT 05/25/2023 FINDINGS: There are scattered areas of low attenuation in the cerebral white matter. There is no intr acranial hemorrhage, acute infarction, or abnormal intracranial mass lesion. The ventricles are judith l in size. There are likely changes of ocular lens replacement surgeries. There is mucosal thickening in the paranasal sinuses. The mastoid air cells are normal. IMPRESSION: 1. Stable moderate nonspecific cerebral white matter disease, which likely represents chronic small v essel ischemic disease. Reviewed, dictated and finalized at location E. IMPRESSION: 1. Stable moderate nonspecific cerebral white matter disease, which likely repr esents chronic small vessel ischemic disease.
[2023-06-03 01:52] VITALS: BP 143/69; PULSE 84; RESP 16; TEMP 36.6; O2SAT 95
[2023-06-03 02:00] VITALS: BP 146/67; PULSE 85; RESP 16
--- NOTE | 2023-06-03 02:56 | ED.FALL ---
HPI - Fall General Chief Complaint: Fall <Britney Washington MD - Last Filed: 06/03/23 07:27> Stated Complaint: GENERALIZED PAIN S/P FALL <Britney Washington MD - Last Filed: 06/03/23 07:27> Time Seen by Provider: 06/03/23 02:13 <Britney Washington MD - Last Filed: 06/03/23 07:27> History of Present Illness HPI Narrative: 83-year-old female with history of recent left hip surgery presenting with fall, she was found on the floor. She is unable to provide much history but when asked if she has any pain, she points to her left hip. <Britney Washington MD - Last Filed: 06/03/23 07:27> Related Data Home Medications: Home Medications Medication Instructions Recorded Confirmed aspirin 81 mg tablet,delayed 81 mg PO DAILY 03/01/2323 release (Adult Aspirin Regimen) <Britney Washington MD - Last Filed: 06/03/23 07:27> Allergies/Adverse Reactions: Allergies Allergy/AdvReac Type Severity Reaction Status Date / Time hydralazine Allergy Unknown Verified 12/16/22 09:59 hydrocodone Allergy Unknown Verified 05/25/23 18:42 sulfamethoxazole Allergy Unknown Verified 12/16/22 09:59 trimethoprim Allergy Unknown Verified 12/16/22 09:59 <Britney Washington MD - Last Filed: 06/03/23 07:27> Review of Systems Review of Systems: CONST: No fever. HEENT: No sore throat C/V: No chest pain RESP: No cough GI: No abdominal pain : No dysuria. M/S: Left hip pain NEURO: Falls <Britney Washington MD - Last Filed: 06/03/23 07:27> [facility] Past Medical History Medical History: Medical History (Updated 06/03/23 @ 07:26 by Britney Washington MD) Body mass index (BMI) less than 16.5 Body mass index (BMI) less than 20 Dementia Dysphagia Femoral neck fracture Left hip Hypertension Hyperthyroidism Leg weakness, bilateral Low vitamin D level Severe mitral regurgitation Thyroid nodule TIA (transient ischemic attack) <Britney Washington MD - Last Filed: 06/03/23 07:27> Surgical History Surgical History: Surgical History (Updated 06/02/23 @ 07:17 by Florentino Hernandes MD) History of laparoscopic appendectomy History of partial replacement of left hip joint using bipolar prosthesis April 2023 History of tonsillectomy and adenoidectomy Hx of cholecystectomy <Britney Washington MD - Last Filed: 06/03/23 07:27> Family History Family History: Family History Father Thyroid cancer Mother Arthritis Sibling Agent [place] poisoning Leukemia Other Diabetes mellitus Hypertension <Britney Washington MD - Last Filed: 06/03/23 07:27> Social History Social History: Social History Social History: The patient resides at [facility]. The patient denies any tobacco use. The patient is . 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 She has 3 children listed as her contacts. 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 EYES: EOMI, conjunctiva normal ENT: Hearing grossly intact L
[2023-06-03 03:42] VITALS: BP 161/95; PULSE 100; RESP 17; O2SAT 100
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
[2023-06-03 07:16] VITALS: BP 150/83; PULSE 100; RESP 16; O2SAT 93
--- NOTE | 2023-06-03 07:51 | PC.NURSE ---
Attempted to call [facility] to give nurse to nurse report regarding this pt, no answer and no voicemail option
--- NOTE | 2023-06-03 08:33 | PC.NURSE ---
This RN spoke to son on the phone and gave update - [facility] cell [phone]
== END 2023-06-03 11:19 ==
PROVIDERS: Emergency Provider Emergency Medicine
DX: S79.912A Unspecified injury of left hip, initial encounter (principal); F03.90 Unspecified dementia, unspecified severity, without behavioral disturbance, psychotic disturbance, mood disturbance, and anxiety; I10 Essential (primary) hypertension; E03.9 Hypothyroidism, unspecified; I34.0 Nonrheumatic mitral (valve) insufficiency; Z96.642 Presence of left artificial hip joint; Z86.73 Personal history of transient ischemic attack (TIA), and cerebral infarction without residual deficits; Z90.49 Acquired absence of other specified parts of digestive tract; Z79.82 Long term (current) use of aspirin; M47.812 Spondylosis without myelopathy or radiculopathy, cervical region; J90 Pleural effusion, not elsewhere classified; R90.82 White matter disease, unspecified; W19.XXXA Unspecified fall, initial encounter
CPT/HCPCS: 70450; 72125; 72170; 99284

== ENCOUNTER 2023-06-05 13:42 | Emergency (ER) | payer MEDICARE, SELFPAY ==
[2023-06-05] VITALS (9 sets, daily range): BP systolic 120–161; BP diastolic 69–87; PULSE 81–94; RESP 14–21; TEMP 36.2; O2SAT 95–98
--- NOTE | ~2023-06-05 | CT_ITS ---
EXAMINATION: CT cervical spine wo con DATE: 06/05/2023 15:42 INDICATION: Fall with head injury TECHNIQUE: Computed tomography (CT) of the cervical spine was performed without intravenous contrast. Automated exposure control and iterative reconstruction technique were employed. The dose-length pro duct was 107.62 mGy-cm. COMPARISON: None FINDINGS: Straightening of the normal cervical lordosis. Vertebral body heights are normal. No fracture. Modera te disc height loss at C4-C5 and C5-C6 and C6-C7. Associated degenerative endplate changes with small posterior endplate osteophytes and uncovertebral osteoarthritis, severe on the right at C4-C5 throug h C6-C7 and on the left at C4-C5. This contributes to mild central canal stenosis at C5-C6 and C6-C7. There is also bilateral multilevel moderate to severe cervical and upper thoracic facet osteoarthrit is. This contributes to mild neural foraminal stenosis at a few levels on both the left and right shraddha es of the cervical spine. Atherosclerotic calcific a cyst at the bilateral carotid bulbs. 3.3 cm retr oesophageal mass at the thoracic inlet which appears to represent a thyroid nodule arising from the r ight thyroid lobe. Small bilateral posterior layering pleural effusions with dependent atelectasis in the upper lobes. IMPRESSION: 1. Moderate cervical spondylosis. No acute osseous abnormality. 2. 3.3 cm right thyroid mass. Reviewed, dictated and finalized at location B.
--- NOTE | ~2023-06-05 | XR_ITS ---
EXAM: XR hip LT 2V w AP pelvis DATE: 06/05/2023 15:30 HISTORY: glf, recent L hip surgery . COMPARISON: X-ray pelvis 06/03/2023; x-ray left hip 05/29/2023 and 05/25/2023. FINDINGS: Uncomplicated appearing left hip arthroplasty Decreased mineralization. No fracture or dis location. Ovoid 3.1 cm lucency in the mid left femur. Lumbar scoliosis and lumbar degenerative disc d isease. Moderate right hip osteoarthritis. No erosion or periosteal change. Soft tissues within judith l limits. IMPRESSION: No acute fracture or dislocation in the pelvis or left hip. New 3.1 cm lucency in the mid left femur, concerning for metastatic disease or multiple myeloma. Cons ider nonemergent but timely bone scan for further evaluation. Reviewed, dictated and finalized at location K. IMPRESSION: No acute fracture or dislocation in the pelvis or left hip. New 3.1 cm lucency in the mid left femur, concerning for metastatic disease or multiple myeloma. Consider nonemergent but timely bone scan for further evaluat ion.
--- NOTE | ~2023-06-05 | CT_ITS ---
EXAMINATION: CT brain wo con DATE: 06/05/2023 15:41 INDICATION: Fall with head injury TECHNIQUE: Computed tomography (CT) of the head was performed without intravenous contrast. Sagittal and coronal reconstructions were performed. The mA was adjusted according to patient size. Iterative reconstruction technique was employed. The dose-length product was 605.33 mGy-cm. COMPARISON: head CT dated 06/03/2023 FINDINGS: No fracture. No acute intracranial hemorrhage, acute infarction or abnormal extra axial fluid collect ion. There is moderate scattered white matter hypoattenuation consistent with chronic small vessel is chemic disease. Symmetric prominence of the sulci consistent with mild age-appropriate diffuse cerebr al volume loss. Ventricles are normal and symmetric. No mass/mass effect. Changes of bilateral intrao cular lens replacement. The orbits and mastoid air cells are normal. Mild mucosal thickening the ethm oid sinuses. IMPRESSION: 1. No fracture or acute intracranial process. 2. Age-related changes with mild diffuse volume loss and moderate scattered white matter hypoattenuat ion consistent with chronic small vessel ischemic disease. Reviewed, dictated and finalized at location B. IMPRESSION: 1. No fracture or acute intracranial process. 2. Age-related changes with mild diffuse volume loss and moderate scattered whi te matter hypoattenuation consistent with chronic small vessel ischemic disease .
[2023-06-05] MEDS: TETANUS,DIPHTHERIA,AC PERTUSSIS ADULT (0.5 ML) BOOSTRIX IM (15:43)
[2023-06-05] MEDS: LIDOCAINE HCL 1% LOCAL INJ 10 ML VIAL 5 ML INFILTRATE (15:44)
--- NOTE | 2023-06-05 16:13 | ED.FALL ---
HPI - Fall General Chief Complaint: Fall Stated Complaint: ground level fall Time Seen by Provider: 06/05/23 14:33 Source: patient, RN notes reviewed and old records reviewed Mode of arrival: EMS Limitations: dementia History of Present Illness HPI Narrative: Patient is an 83-year-old female, with PMH of dementia/A&OX1 at baseline, who presents ED via EMS with report of a fall. Patient is a resident of [facility]. Per EMS staff witnessed patient have a mechanical fall today and lost her footing while trying to stand up from a chair. She is currently nonambulatory d/t recent L hip replacement on 05/[address] Hernandes. Patient did hit her head in the fall and sustained 2 lacerations to her upper inner and outer lip. No LOC. Patient was then sent here for further evaluation. Patient unable to voice any concerns or tell me how the fall occurred due to dementia. Related Data Home Medications Medication Instructions Recorded Confirmed aspirin 81 mg tablet,delayed 81 mg PO DAILY 03/01/23 05/25/23 release (Adult Aspirin Regimen) Allergies Allergy/AdvReac Type Severity Reaction Status Date / Time hydralazine Allergy Unknown Verified 06/05/23 13:56 hydrocodone Allergy Unknown Verified 06/05/23 13:56 sulfamethoxazole Allergy Unknown Verified 06/05/23 13:56 trimethoprim Allergy Unknown Verified 06/05/23 13:56 Review of Systems Review of Systems: ROS unobtainable: Yes unobtainable due to mental status PMFSH Past Medical History Medical History Body mass index (BMI) less than 16.5 Body mass index (BMI) less than 20 Dementia Dysphagia Femoral neck fracture Left hip Hypertension Hyperthyroidism Leg weakness, bilateral Low vitamin D level Severe mitral regurgitation Thyroid nodule TIA (transient ischemic attack) Surgical History Surgical History History of laparoscopic appendectomy History of partial replacement of left hip joint using bipolar prosthesis April 2023 History of tonsillectomy and adenoidectomy Hx of cholecystectomy Family History Family History Father Thyroid cancer Mother Arthritis Sibling Agent [place] poisoning Leukemia Other Diabetes mellitus Hypertension Social History Social History Social History: The patient resides at [facility]. The patient denies any tobacco use. The patient is . 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 She has 3 children listed as her contacts. 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 HEAD: Normocephalic, atraumatic. EYES: PERRLA/EOMI, conjunctiva clear. ENT: 2 small vertical lacerations to upper outer lip. No involvement of vermilion border. Both lacerations appear to be through and through injury, with smaller lacerations on inner lip body surface. No active bleeding. No chipped teeth. No trismus. NECK: Supple. No adenopathy, no masses. No midline spinal tenderness. RESPIRATORY: Airway patent, respirations nonlabore
--- NOTE | 2023-06-05 17:17 | PC.NURSE ---
Report called to [facility] to nurse Blank regarding pt returning back to facility.
== END 2023-06-05 18:22 ==
PROVIDERS: Emergency Provider Physician Assistant
DX: S01.511A Laceration without foreign body of lip, initial encounter (principal); R93.6 Abnormal findings on diagnostic imaging of limbs; Z23 Encounter for immunization; F03.90 Unspecified dementia, unspecified severity, without behavioral disturbance, psychotic disturbance, mood disturbance, and anxiety; I10 Essential (primary) hypertension; I34.0 Nonrheumatic mitral (valve) insufficiency; E05.90 Thyrotoxicosis, unspecified without thyrotoxic crisis or storm; E55.9 Vitamin D deficiency, unspecified; Z96.642 Presence of left artificial hip joint; Z86.73 Personal history of transient ischemic attack (TIA), and cerebral infarction without residual deficits; Z79.82 Long term (current) use of aspirin; Z90.49 Acquired absence of other specified parts of digestive tract; M47.812 Spondylosis without myelopathy or radiculopathy, cervical region; W18.39XA Other fall on same level, initial encounter
CPT/HCPCS: 12011; 70450; 72125; 73502; 90471; 90715; 99284

== ENCOUNTER 2023-06-06 08:44 | Emergency (ER) | payer MEDICARE, SELFPAY ==
[2023-06-06] VITALS (21 sets, daily range): BP systolic 132–168; BP diastolic 64–111; PULSE 79–103; RESP 13–27; TEMP 36.7; O2SAT 95–100
--- NOTE | ~2023-06-06 | CT_ITS ---
EXAMINATION: CT brain wo con DATE: 06/06/2023 10:47 INDICATION: Fall with head injury TECHNIQUE: Computed tomography (CT) of the head was performed without intravenous contrast. Sagittal and coronal reconstructions were performed. Automated exposure control and iterative reconstruction t echnique were employed. The dose-length product was 605.33 mGy-cm. COMPARISON: head CT dated 06/05/2023 FINDINGS: No fracture. No acute intracranial hemorrhage, acute infarction or abnormal extra axial fluid collect ion. There is moderate scattered white matter hypoattenuation consistent with chronic small vessel is chemic disease. Symmetric prominence of the sulci consistent with mild age-appropriate diffuse cerebr al volume loss. Ventricles are normal and symmetric. No mass/mass effect. Changes of bilateral intrao cular lens replacement. The orbits and mastoid air cells are normal. Mild mucosal thickening in the p osterior ethmoid sinuses. IMPRESSION: 1. No fracture or acute intracranial process. 2. Age-related changes with mild diffuse volume loss and moderate scattered white matter hypoattenuat ion consistent with chronic small vessel ischemic disease. Reviewed, dictated and finalized at location L. IMPRESSION: 1. No fracture or acute intracranial process. 2. Age-related changes with mild diffuse volume loss and moderate scattered whi te matter hypoattenuation consistent with chronic small vessel ischemic disease .
--- NOTE | ~2023-06-06 | XR_ITS ---
AP view of the pelvis and AP and lateral views of the left hip Clinical history: Pain COMPARISON: 06/05/2023 Findings: No acute fracture or dislocation is seen. Left hip arthroplasty in place. No hardware compl ication is evident. Stable focal lucency in the mid left femoral shaft. Soft tissues are unremarkable . Impression: No acute fracture or dislocation. Left hip arthroplasty in place. Stable lucent/lytic lesion at the mid left femoral shaft. Metastatic lesion is not excluded. Reviewed, dictated and finalized at location M. Impression: No acute fracture or dislocation. Left hip arthroplasty in place. Stable lucent/lytic lesion at the mid left femoral shaft. Metastatic lesion is not excluded.
--- NOTE | ~2023-06-06 | CT_ITS ---
EXAMINATION: CT cervical spine wo con DATE: 06/06/2023 10:47 INDICATION: Fall with head injury TECHNIQUE: Computed tomography (CT) of the cervical spine was performed without intravenous contrast. Automated exposure control and iterative reconstruction technique were employed. The dose-length pro duct was 120.41 mGy-cm. COMPARISON: 06/05/2023 FINDINGS: Straightening of the normal cervical lordosis. Vertebral body heights are normal. No fracture. Modera te cervical spondylosis detailed on the CT from one day prior with moderate disc height loss at C4-C5 through C6-C7 with associated moderate to severe uncovertebral and facet osteoarthritis. Atheroscler otic calcific a shunt the bilateral carotid bulbs. 3.3 cm right thyroid nodule with coarse calcificat ion. Posterior layering pleural effusions at the visualized bilateral upper lung zones. IMPRESSION: 1. Moderate cervical spondylosis. No acute osseous abnormality. 2. 3.3 cm right thyroid mass. 3. Posterior layering bilateral pleural effusions at the upper lung zones. Reviewed, dictated and finalized at location L.
--- NOTE | 2023-06-06 10:00 | PC.NURSE ---
pt asking staff why she is here. pt oriented to events of today. states she doesnt understand. pt then stating so im not ?
--- NOTE | 2023-06-06 10:27 | ED.FALL ---
HPI - Fall General Chief Complaint: Fall Stated Complaint: fall Time Seen by Provider: 06/06/23 10:23 Source: EMS Mode of arrival: EMS Limitations: dementia History of Present Illness HPI Narrative: Patient came by ambulance from [facility] complaining of frequent fall, patient is in rehab for fractured femur, history of a previous fall with laceration upper lip, status post left hip surgery recently, had another fall today, unwitnessed, patient does not look in pain or distress, denying any pain. Related Data Home Medications Medication Instructions Recorded Confirmed aspirin 81 mg tablet,delayed 81 mg PO DAILY 03/01/23 05/25/23 release (Adult Aspirin Regimen) Allergies Allergy/AdvReac Type Severity Reaction Status Date / Time hydralazine Allergy Unknown Verified 06/05/23 13:56 hydrocodone Allergy Unknown Verified 06/05/23 13:56 sulfamethoxazole Allergy Unknown Verified 06/05/23 13:56 trimethoprim Allergy Unknown Verified 06/05/23 13:56 Review of Systems Review of Systems: ROS unobtainable: Yes unobtainable due to mental status PMFSH Past Medical History Medical History Body mass index (BMI) less than 16.5 Body mass index (BMI) less than 20 Dementia Dysphagia Femoral neck fracture Left hip Hypertension Hyperthyroidism Leg weakness, bilateral Low vitamin D level Severe mitral regurgitation Thyroid nodule TIA (transient ischemic attack) Surgical History Surgical History History of laparoscopic appendectomy History of partial replacement of left hip joint using bipolar prosthesis April 2023 History of tonsillectomy and adenoidectomy Hx of cholecystectomy Family History Family History Father Thyroid cancer Mother Arthritis Sibling Agent [place] poisoning Leukemia Other Diabetes mellitus Hypertension Social History Social History Social History: The patient resides at [facility]. The patient denies any tobacco use. The patient is . 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 She has 3 children listed as her contacts. 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 Musculoskeletal: Left hip surgical scar dry and clean, good range of motion Neurologic: Alert and oriented to her name only Course Reevaluation(s) Reevaluation
--- NOTE | 2023-06-06 12:29 | PC.NURSE ---
pt yelling out from room stating that the is cancelled for 3 days . pt trying to get out of bed. difficult to direct. [facility].
--- NOTE | 2023-06-06 12:35 | PC.NURSE ---
conceptor at bedside due to high fall risk
== END 2023-06-06 14:37 ==
PROVIDERS: Emergency Provider Emergency Medicine
DX: F03.90 Unspecified dementia, unspecified severity, without behavioral disturbance, psychotic disturbance, mood disturbance, and anxiety (principal); I10 Essential (primary) hypertension; E05.90 Thyrotoxicosis, unspecified without thyrotoxic crisis or storm; W19.XXXA Unspecified fall, initial encounter
CPT/HCPCS: 70450; 72125; 73502; 99284

== ENCOUNTER 2023-07-04 22:59 | Emergency (ER) | payer MEDICARE, SELFPAY ==
--- NOTE | ~2023-07-04 | CT_ITS ---
EXAMINATION: CT abdomen pelvis w con DATE: 07/05/2023 02:27 INDICATION: Abdominal pain. TECHNIQUE: Computed tomography (CT) of the abdomen and pelvis was performed with 100 mL Omnipaque 350 intravenous contrast. Automated exposure control and iterative reconstruction technique were employe d. The dose-length product was 262.14 mGy-cm. COMPARISON: None. FINDINGS: The visualized portions of the lung bases demonstrate mild atelectasis. There are small ple ural effusions. Cardiomegaly is noted. No pericardial effusion. There are cysts in the liver measurin g up to 6 mm. There are changes of cholecystectomy. The spleen is normal. There is a 1.9 cm cystic le malaika in the body of the pancreas, new from 02/19/2014. The adrenal glands are normal. There are cysts in the kidneys measuring up to 5 mm. There is mild aortic atherosclerosis. There is diverticulosis of the colon without evidence of diverticulitis. There are no dilated loops of bowel. The appendix is n ot visualized. 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 There is moderate stenosis of superi or mesenteric artery. Inferior mesenteric artery is large in caliber without significant stenosis. Th e left periuterine veins and left ovarian vein are enlarged, consistent with pulmonary venous insuffi ciency. There are no pathologically enlarged lymph nodes. There is no free intraperitoneal fluid. The re is a bipolar left hip hemiarthroplasty in near-anatomic alignment. There are healing right rib fra ctures. There is lumbar levoscoliosis and moderate spondylosis. There are benign bone islands in the pelvis. IMPRESSION: 1. Pelvic venous insufficiency. 2. Small pleural effusions. 3. 1.9 cm cystic lesion in the body of the pancreas, new from 02/19/2014. The differential diagnosis i ncludes pseudocyst, intraductal papillary mucinous neoplasm (IPMN), mucinous cystic neoplasm (MCN), s erous cystadenoma, and neuroendocrine tumor. Consider abdomen MRI without and with contrast in 2 year s, but only if the patient would a potential future surgical candidate. Reviewed, dictated and finalized at location A. IMPRESSION: 1. Pelvic venous insufficiency. 2. Small pleural effusions. 3. 1.9 cm cystic lesion in the body of the pancreas, new from 02/19/2014. The di fferential diagnosis includes pseudocyst, intraductal papillary mucinous neopla sm (IPMN), mucinous cystic neoplasm (MCN), serous cystadenoma, and neuroendocri ne tumor. Consider abdomen MRI without and with contrast in 2 years, but only i f the patient would a potential future surgical candidate.
--- NOTE | ~2023-07-04 | XR_ITS ---
EXAMINATION: XR hip LT 2V w AP pelvis DATE: 07/05/2023 01:55 INDICATION: Left buttock pain. TECHNIQUE: An anteroposterior view of the pelvis and 2 views of left hip were obtained. COMPARISON: Left hip radiographs 06/29/2023, CT 07/05/2023 FINDINGS: There is a bipolar left hip hemiarthroplasty in near-anatomic alignment. No fracture. No pe riprosthetic lucency to suggest loosening or infection. There is lumbar levoscoliosis and moderate sp ondylosis. There is mild right hip osteoarthritis. IMPRESSION: 1. Bipolar left hip hemiarthroplasty in near-anatomic alignment. 2. Mild right hip osteoarthritis. Reviewed, dictated and finalized at location A.
[2023-07-04 22:58] VITALS: BP 158/81; PULSE 56; RESP 18; O2SAT 100
--- NOTE | 2023-07-04 23:03 | ECG_ITS ---
Measurements Intervals [place] Rate: 59 P: 42 DC: 144 QRS: 40 QRSD: 90 T: 23 QT: 448 QTc: 447 Interpretive Statements SINUS BRADYCARDIA WITH SINUS ARRHYTHMIA VOLTAGE CRITERIA FOR LVH BORDERLINE ECG COMPARED TO ECG 05/25/2023 16:07:36 NO SIGNIFICANT CHANGES Electronically Signed On 07-05-2023 8:15:44 CDT by Kiel Calderon D.O.
[2023-07-04 23:46] VITALS: BP 162/93; PULSE 61; RESP 12; O2SAT 100
[2023-07-05] VITALS (11 sets, daily range): BP systolic 133–179; BP diastolic 63–103; PULSE 50–70; RESP 9–25; O2SAT 92–100
[2023-07-05 00:16] LABS: Alanine Aminotransferase 16 U/L (6-35); Albumin Level 3.5 g/dL (3.5-5.1); Alkaline Phosphatase 152 U/L (38-126); Anion Gap 3 mmol/L (8-16); Aspartate Amino Transferase 35 U/L (14-36); Bilirubin,Total 0.4 mg/dL (0.2-1.3); Blood Urea Nitrogen 21 mg/dL (7-17); Calcium 8.6 mg/dL (8.4-10.2); Carbon Dioxide 33 mmol/L (22-30); Chloride 107 mmol/L (98-107); Estimated CRCL calculation 32 ml/min; Estimated Glomerular Filt Rate > 60; Glucose 83 mg/dL (65-110); Potassium 4.1 mmol/L (3.4-5.0); Sodium 143 mmol/L (137-145)
[2023-07-05 00:21] LABS: Basophils Absolute Auto 0.1 K/mm3 (0.0-0.1); Eosinophils Absolute Auto 0.3 K/mm3 (0-0.3); Eosinophils Percent Auto 4.7 % (0-4.4); Hematocrit 36.8 % (37.0-47.0); Hemoglobin 11.5 g/dL (12.0-15.0); Immature Granulocyte Absolute 0.04 K/mm3 (0.00-0.031); Immature Granulocyte Percent A 0.6 % (0-0.5); Lymphocytes Absolute Auto 1.74 K/mm3 (0.9-3.2); Lymphocytes Percent Auto 25.4 % (18.3-44.2); Mean Corpuscular HGB Conc 31.3 g/dl (32-36); Mean Corpuscular Volume 99.2 fl (80-100); Mean Platelet Volume 9.3 fl (7.4-10.4); Monocytes Absolute Auto 0.8 K/mm3 (0.1-0.6); Neutrophils Absolute Auto 3.9 K/mm3 (1.3-6.7); Neutrophils Percent Auto 57.3 % (45.5-73.1); Platelet Count Result 295 k/mm3 (150-375); Red Blood Count 3.71 M/mm3 (4.2-5.4); Red Cell Distribution Width 13.9 % (11.5-14.5); White Blood Count 6.8 K/mm3 (4.5-10.0)
[2023-07-05 00:32] LABS: Appearance Urine Clear (Clear); Bacteria Urine None Seen /hpf; Bilirubin Urine Negative (Negative); Blood Urine 3+ (Negative); Color Urine Yellow (Yellow); Glucose Urine UA Negative (Negative); Hyaline Casts Urine Present /lpf; Ketones Urine Negative (Negative); Leukocyte Esterase Ur Negative LEU/UL (Negative); Mucus Urine Present /lpf; Nitrate Urine Negative (Negative); Non Pathogenic Casts 0-2; Protein Urine Negative (Negative); RBC Urine 51-100 /hpf (0-2); Specific Grav Ur 1.017 (1.001-1.035); Squamous Epithelial Cell Urine None seen /hpf (Few); Urobilinogen Urine 0.2 mg/dL (<2.0); WBC Urine 0-5 /hpf; pH Urine 6.5 (5.0-9.0)
--- NOTE | 2023-07-05 00:32 | ED.GENADULT ---
HPI - General Adult General Chief complaint: Weakness Stated complaint: GENERALIZED WEAKNESS Time Seen by Provider: 07/05/23 00:10 Source: patient Limitations: dementia History of Present Illness HPI narrative: Patient presents to the emergency department is an 83-year-old female for suprapubic abdominal discomfort with dysuria. Patient is unsure as to how long the symptoms have been ongoing. Patient does not know what medication she takes on a regular basis but is unsure if she had any new or changed medications. Patient denies any recent injuries or recent illness. Patient denies fever, cough, chest pain, shortness of breath, urinary incontinence, stool incontinence, back pain, lower extremity swelling, history of blood clots, rash, generalized body aches, nausea, vomiting, diarrhea, melena, hematochezia, headache, vision changes, difficulty swallowing, dysarthria. Related Data Home Medications Medication Instructions Recorded Confirmed quetiapine 25 mg tablet 25 mg PO QHS 06/29/23 06/29/23 Allergies Allergy/AdvReac Type Severity Reaction Status Date / Time hydralazine Allergy Unknown Verified 06/05/23 13:56 hydrocodone Allergy Unknown Verified 06/05/23 13:56 sulfamethoxazole Allergy Unknown Verified 06/05/23 13:56 trimethoprim Allergy Unknown Verified 06/05/23 13:56 Review of Systems Review of Systems: A 10 system review of systems was completed on the patient and is negative except for what is stated in the HPI. Nursing and ancillary documentation was reviewed. [facility] Past Medical History Medical History Body mass index (BMI) less than 16.5 Body mass index (BMI) less than 20 Dementia Dysphagia Femoral neck fracture Left hip Hypertension Hyperthyroidism Leg weakness, bilateral Low vitamin D level Severe mitral regurgitation Thyroid nodule TIA (transient ischemic attack) Surgical History Surgical History History of laparoscopic appendectomy History of partial replacement of left hip joint using bipolar prosthesis April 2023 History of tonsillectomy and adenoidectomy Hx of cholecystectomy Family History Family History Father Thyroid cancer Mother Arthritis Sibling Agent [place] poisoning Leukemia Other Diabetes mellitus Hypertension Social History Social History Social History: The patient resides at [facility]. The patient denies any tobacco use. The patient is . 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 She has 3 children listed as her contacts. 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 Please see the nursing chart for further information. There is no relevant family history pertinent to the presenting complaint. Exam Narrative: CONST: No acute distress. Pleasantly demented. HENMT: Head is normocephalic and atraumatic. Dry mucous membranes. No posterior oropharynx erythema. EYES: No conjunctival icterus, inject
[2023-07-05 00:33] LABS: Add Urine Microscopic? YES
[2023-07-05] MEDS: ACETAMINOPHEN 500 MG TABLET 1000 MG PO (01:38)
[2023-07-05] MEDS: LACTATED RINGERS 1,000 ML 999 ML IV CONT (02:21)
[2023-07-05 04:00] LABS: INR 1.1; Prothrombin Time 14.5 Seconds (11.1-14.7)
[2023-07-05 04:01] LABS: Partial Thromboplastin Time 34.4 SECONDS (22.3-36.8)
[2023-07-05 04:03] LABS: Influenza A QL RT-PCR Negative (Negative); Influenza B QL RT-PCR Negative (Negative); SARS-CoV-2 RNA PCR Negative (Negative)
[2023-07-05 04:06] LABS: Lipase 70 U/L (23-300); Magnesium 2.1 mg/dL (1.6-2.3)
[2023-07-05 04:19] LABS: Troponin I < 0.012 ng/mL (0.000-0.034)
[2023-07-05 04:27] LABS: Thyroid Stimulating Hormone Reflex 0.893 uIU/mL (0.465-4.68)
== END 2023-07-05 09:13 ==
PROVIDERS: Emergency Provider Student in an Organized Health Care Education/Training Program
DX: Z71.1 Person with feared health complaint in whom no diagnosis is made (principal); F03.90 Unspecified dementia, unspecified severity, without behavioral disturbance, psychotic disturbance, mood disturbance, and anxiety; R30.0 Dysuria; I10 Essential (primary) hypertension; Z86.73 Personal history of transient ischemic attack (TIA), and cerebral infarction without residual deficits; Z20.822 Contact with and (suspected) exposure to COVID-19; Z96.642 Presence of left artificial hip joint; Z79.899 Other long term (current) drug therapy
CPT/HCPCS: 36415; 73502; 74177; 80053; 81001; 83690; 83735; 84443; 84484; 85025; 85610; 85730; 87636; 93005; 96360; 99284; A9270; J7120; Q9967

== ENCOUNTER 2023-07-15 13:58 | Inpatient (IN) | payer MEDICARE, SELFPAY ==
[2023-07-15] VITALS (8 sets, daily range): BP systolic 92–128; BP diastolic 45–76; PULSE 92–110; RESP 16–30; TEMP 36.5–36.7; O2SAT 92–100; BMI 17.4
--- NOTE | ~2023-07-15 | XR_ITS ---
MODIFIED ESOPHAGRAM HISTORY: Aspiration TECHNIQUE: Modified barium esophagram was performed on 07/17/2023. I administered fluoroscopy and perf ormed the exam with speech pathologist. Patient was seated for lateral fluoroscopic imaging for erasmo stion of thin liquids, pudding, solids and quantified amounts, followed by thin liquids in uncontroll ed amounts. This was recorded on tape. A single fluoroscopic spot image was also recorded. The DAP fo r this procedure was 2.551 Gycm2. The amount of fluoroscopy time used during this procedure was 6.1 m inutes. FINDINGS: Oral stage: Adequate function. Pharyngeal stage: Pharyngeal dysphagia with reduced laryngeal elevation and tongue base retraction. T here is increased vallecular, piriform sinus and pharyngeal wall residue. Laryngeal penetration and a spiration with thin liquids and mildly thickened liquids. Cervical/esophageal stage: Adequate function. At the margin of the [id number] with real-time imagi ng there appear to be a transient filling defect cephalad esophagus. Review of CT imaging suggests th is may be related to a prominent thyroid nodule arising from the inferior thyroid which exerts mass e ffect upon the right wall of the esophagus and right posterior margin of the trachea at the level of the thoracic inlet IMPRESSION: Pharyngeal dysphagia with laryngeal penetration and aspiration with thin and mildly thick ened liquids. Please correlate with speech pathologist findings and specific feeding recommendations . Reviewed, dictated and finalized at location A. IMPRESSION: Pharyngeal dysphagia with laryngeal penetration and aspiration with thin and mildly thickened liquids. Please correlate with speech pathologist f indings and specific feeding recommendations.
--- NOTE | ~2023-07-15 | US_ITS ---
US abdomen limited DATE: 07/16/2023 08:55 INDICATION: Elevated liver function tests TECHNIQUE: Real-time imaging of liver, pancreas, gallbladder fossa COMPARISON: 07/15/2023 CT abdomen pelvis FINDINGS: A 9 mm hyperechoic lesion of the right hepatic lobe is likely a small hemangioma. No other hepatic space-occupying mass lesion is detected. Normal hepatopedal portal venous flow direction. No intrahepatic or extra hepatic bile duct dilatation. The gallbladder is surgically absent. No pancreatic mass lesion is evident. IMPRESSION: Status post cholecystectomy Reviewed, dictated and finalized at Location A. Reviewed, dictated and finalized at location A. IMPRESSION: Status post cholecystectomy
--- NOTE | ~2023-07-15 | XR_ITS ---
EXAMINATION: XR chest 1V portable DATE: 07/15/2023 16:58 INDICATION: Altered mental status TECHNIQUE: frontal view of the chest was obtained. COMPARISON: Chest radiograph dated 05/25/2023 FINDINGS: Cardiomegaly. Skinfold projects of the right upper lung zone. Mild biapical pleural-parenchymal scarr ing. No other airspace opacities, pulmonary edema or pleural effusion. IMPRESSION: 1. Cardiomegaly. No acute cardiopulmonary disease. Reviewed, dictated and finalized at location A.
--- NOTE | ~2023-07-15 | CT_ITS ---
EXAMINATION: CT abdomen pelvis w con DATE: 07/15/2023 17:23 INDICATION: Sepsis, urinary symptoms and diarrhea TECHNIQUE: Computed tomography (CT) of the abdomen and pelvis was performed with 100 mL Omnipaque-350 intravenous contrast. Automated exposure control and iterative reconstruction technique were employe d. The dose-length product was 339.29 mGy-cm. COMPARISON: 07/05/2023 FINDINGS: Atelectasis in the bilateral lower lobes. 1.4 cm left paraspinal pleural versus subpleural mass at th e posterior medial left lung base along the cephalad margin of the left 12th rib. This is increased f rom 10 x [address] dated 02/19/2014 which favors a benign etiology such as schwannoma or peripheral n erve sheath tumor. No pleural effusion. Cardiomegaly. No pericardial effusion. Cholecystectomy clips the gallbladder fossa. New mild periportal edema. Spleen and bilateral adrenal glands are normal. Unc hanged 1.9 cm cystic lesion in the body the pancreas. Again seen are a few bilateral renal cysts lee uring up to 5 mm. Bladder, uterus and bilateral adnexa are unremarkable. No bowel obstruction. The ap pendix is not visualized. No pericecal inflammatory change to suggest acute appendicitis. Complete oc clusion of the celiac axis and moderate stenosis of the superior mesenteric artery. There is likely c ompensatory dilation of the inferior mesenteric artery. Again seen is enlargement of the left paramet rial and ovarian veins which can be seen with pelvic venous congestion syndrome. No free intraperiton eal gas or fluid. No pathologically enlarged abdominal or pelvic lymphadenopathy. Partially visualize d bipolar type left hip hemiarthroplasty in near-anatomic alignment. Lumbar levoscoliosis with modera te increase in size of a spondylosis. A few healing right rib fractures. IMPRESSION: 1. New nonspecific periportal edema. Differential would include congestive heart failure, acute hepat itis, hepatic or abdominal trauma particularly with aggressive fluid resuscitation, cholangitis or ac maribel pyelonephritis. 2. Prominent cardiomegaly. 3. Unchanged 1.9 cm cystic lesion of the pancreas. See prior report on 07/05/2023 for differential and follow-up recommendations. 4. Mild increase in size since 2013 in a 1.4 cm lower thoracic left paraspinal nodule which favors a benign etiology and given location would favor schwannoma or peripheral nerve sheath tumor. 5. Persistent enlargement of the left parametrial and ovarian veins which can be seen with pelvic vas cular congestion syndrome. Reviewed, dictated and finalized at location A. IMPRESSION: 1. New nonspecific periportal edema. Differential would include congestive hear t failure, acute hepatitis, hepatic or abdominal trauma particularly with aggre ssive fluid resuscitation, cholangitis or acute pyelonephritis. 2. Prominent cardiomegaly. 3. Unchanged 1.9 cm cystic lesion of the pancreas. See prior report on 07/05/2023 for differential and follow-up recommendations. 4. Mild increase in size since 2014 in a 1.4 cm lower thoracic left paraspinal nodule which favors a benign etiology and given location would favor schwannoma or peripheral nerve sheath tumor. 5. Persistent enlargement of the left parametrial and ovarian veins which can b e seen with pelvic vascular congestion syndrome.
--- NOTE | ~2023-07-15 | US_ITS ---
US renal BI DATE: 07/16/2023 08:55 INDICATION: Acute renal injury TECHNIQUE: Real-time imaging of kidneys and urinary bladder COMPARISON: 07/15/2023 CT abdomen pelvis FINDINGS: Kidneys are symmetric in size, right kidney measuring approximately 9 cm length, left kidne y 9.9 cm. No renal mass lesion or hydronephrosis is detected. The urinary bladder is unremarkable. IMPRESSION: No significant abnormality Reviewed, dictated and finalized at Location A. Reviewed, dictated and finalized at location A. IMPRESSION: No significant abnormality
--- NOTE | 2023-07-15 14:33 | ED.FEMALEGU ---
HPI - Female Genitourinary General Chief complaint: Urogenital-Female Stated complaint: poss uti Time Seen by Provider: 07/15/23 14:33 Source: patient, EMS and other ([facility] staff) Mode of arrival: EMS Limitations: physical limitation and clinical condition History of Present Illness HPI Narrative: Patient is an elderly 83-year-old female with a significant past medical history as documented below who presents emergency department today by EMS for concerns of a urinary infection with reported blood in her urine, worsening confusion, reports of burning and pain with urination. she is from [facility]. with her underlying dementia unable to obtain good history from patient. Related Data Home Medications Medication Instructions Recorded Confirmed quetiapine 25 mg tablet 25 mg PO QHS 06/29/23 06/29/23 Allergies Allergy/AdvReac Type Severity Reaction Status Date / Time hydralazine Allergy Unknown Verified 06/05/23 13:56 hydrocodone Allergy Unknown Verified 06/05/23 13:56 sulfamethoxazole Allergy Unknown Verified 06/05/23 13:56 trimethoprim Allergy Unknown Verified 06/05/23 13:56 Review of Systems Review of Systems: ROS unobtainable: Yes unobtainable due to medical condition and unobtainable due to mental status PMFSH Past Medical History Medical History Body mass index (BMI) less than 16.5 Body mass index (BMI) less than 20 Dementia Dysphagia Femoral neck fracture Left hip Hypertension Hyperthyroidism Leg weakness, bilateral Low vitamin D level Severe mitral regurgitation Thyroid nodule TIA (transient ischemic attack) Surgical History Surgical History History of laparoscopic appendectomy History of partial replacement of left hip joint using bipolar prosthesis April 2023 History of tonsillectomy and adenoidectomy Hx of cholecystectomy Family History Family History Father Thyroid cancer Mother Arthritis Sibling Agent [place] poisoning Leukemia Other Diabetes mellitus Hypertension Social History Social History Social History: The patient resides at [facility]. The patient denies any tobacco use. The patient is . 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 She has 3 children listed as her contacts. 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 HEAD: Normocephalic, atraumatic. EYES: PERRLA ENT: Nares clear, no rhinorrhea or epistaxis. Mucous membranes dry. NECK: Supple. CHEST: Clear to auscultation. No respiratory distress. HEART: Regular rate and rhythm. No murmur heard. Normal peripheral pulses. ABDOMEN: Soft, nontender, flat, nondistended, normal active bowel sounds. strong smelling stool noted. EXTREMITIES: Normal range of motion grossly intact, able to move upper and lower extremities. No edema. SKIN: Warm, dry, no rash. bruises noted to upper and lower extremities in different stages of healing. NEURO: No obvio
[2023-07-15 14:53] LABS: Bacteria Urine 4+ /hpf; Need Manual Microscopic Reviewed; RBC Urine >100 /hpf (0-2); Squamous Epithelial Cell Urine None seen /hpf (Few); WBC Urine >100 /hpf
[2023-07-15 14:58] LABS: Appearance Urine Cloudy (Clear); Bilirubin Urine Negative (Negative); Blood Urine 3+ (Negative); Color Urine Red (Yellow); Glucose Urine UA Negative (Negative); Ketones Urine Negative (Negative); Leukocyte Esterase Ur 1+ LEU/UL (Negative); Nitrate Urine Positive (Negative); Protein Urine 2+ mg/dL (Negative); Urobilinogen Urine 0.2 mg/dL (<2.0); pH Urine 8.5 (5.0-9.0)
[2023-07-15 15:00] LABS: Add Urine Microscopic? YES
[2023-07-15 15:03] LABS: Hematocrit 42.2 % (37.0-47.0); Hemoglobin 13.2 g/dL (12.0-15.0); Mean Corpuscular HGB Conc 31.3 g/dl (32-36); Mean Corpuscular Hemoglobin 31.4 pg (26-34); Mean Corpuscular Volume 100.5 fl (80-100); Mean Platelet Volume 8.9 fl (7.4-10.4); Platelet Count Result 208 k/mm3 (150-375); Red Cell Distribution Width 14.1 % (11.5-14.5)
[2023-07-15 15:15] LABS: Alanine Aminotransferase 27 U/L (6-35); Alkaline Phosphatase 210 U/L (38-126); Anion Gap 11 mmol/L (8-16); Aspartate Amino Transferase 109 U/L (14-36); Bilirubin,Total 0.9 mg/dL (0.2-1.3); Blood Urea Nitrogen 34 mg/dL (7-17); CRP 1.1 mg/dL (<1.0); Calcium 9.3 mg/dL (8.4-10.2); Carbon Dioxide 25 mmol/L (22-30); Chloride 109 mmol/L (98-107); Estimated CRCL calculation 22 ml/min; Estimated Glomerular Filt Rate 43; Glucose 84 mg/dL (65-110); Potassium 3.7 mmol/L (3.4-5.0); Sodium 145 mmol/L (137-145)
[2023-07-15 15:17] LABS: Lactic Acid Reflex 5.5 mmol/L (0.7-2.0)
[2023-07-15 15:22] LABS: INR 1.3; Partial Thromboplastin Time 30.1 SECONDS (22.3-36.8); Prothrombin Time 16.5 Seconds (11.1-14.7)
[2023-07-15 15:32] LABS: White Blood Count 1.2 K/mm3 (4.5-10.0)
[2023-07-15] MEDS: SODIUM CHLORIDE 0.9% IV 1,000 ML 500 ML IV CONT (15:35)
[2023-07-15 15:43] LABS: Band Neutrophils Percent 5 % (0-6); Lymphocytes Absolute Manual 0.28 K/mm3 (1.1-4.5); Neutrophils Absolute Manual 0.91 K/mm3 (1.7-7.2); Neutrophils Percent Manual 71 % (46-73); Total Cells Counted 100
[2023-07-15 15:44] LABS: Hypochromasia 1+ (NORMAL); Platelet Estimate Adequate (Adequate); Schistocytes None Seen (NORMAL)
[2023-07-15 16:22] LABS: Procalcitonin 3.9 ng/mL
[2023-07-15 16:59] LABS: Toxigenic C. Diff NEGATIVE (NEGATIVE)
[2023-07-15 17:51] LABS: Lactic Acid Reflex 4.3 mmol/L (0.7-2.0)
[2023-07-15 18:00] LABS: Reflex Lactic Acid Yes or No Add Lactic
[2023-07-15 18:35] LABS: Lactic Acid 5.2 mmol/L (0.7-2.0)
[2023-07-15] MEDS: KCL 20 MEQ/D5/0.45% SOD CHL 1,000 ML 100 ML IV CONT (18:42)
--- NOTE | 2023-07-15 20:35 | PC.NURSE ---
Pt diaper and chux pad changed, soiled with urine.
--- NOTE | 2023-07-15 20:39 | PC.NURSE ---
Addendum entered by Jenna Vega RN 07/15/23 20:40: Late Entry. Assumed care at 1900 Original Note: Assumed care of pt. Report from SHEYLA Bazzi. Pt resting quietly per cart in nad at this time. IVF infusing without incident. Will cont to monitor and await ready bed assignment.
--- NOTE | 2023-07-15 20:45 | PC.NURSE ---
Report to SHEYLA Luz. Pt transported to [facility] by [employer].
--- NOTE | 2023-07-15 21:00 | ADMGEN ---
This patient, Gege Ortiz, was admitted to Medical Room 244-. Patient/family oriented to hospital policies and general routines including ID bracelet, bed and alarms, visiting hours, pain management, procedures, bathroom and other care routines, personal items, smoking policy, room service/diet, and visiting hours. Information on how to activate the Rapid Response Team has been discussed. Patient/Family are encouraged to report perceived risks to care and to ask questions if they do not understand what they are told or what they should do.
--- NOTE | 2023-07-15 22:25 | PM.IMHP ---
H&P: HPI History of Present Illness Date/Time: 07/15/23 19:30 Chief Complaint: Increased confusion and agitation. Narrative: This is an 83-year-old female with history of TIA, dementia, and hypertension who presented to the emergency department via EMS from [facility] for evaluation of increased confusion and agitation. The patient is alert and oriented to self only and cannot provide me with any history. As such all of the following is supplemented via a review of her EMR. At baseline she is reportedly alert and oriented x2 however the last couple of days she has been increasingly confused, agitated, and has complained of burning with urination. Nursing facility also reports seeing some blood in the urine. She has apparently been having loose stools as well. There was no reports of fever or vomiting. To my knowledge the patient has not complained of back or abdominal pain. She was afebrile on arrival to the emergency department. Blood pressure was 92/75 but did improve with IV fluids. Labs were significant for a white blood cell count of 1.2, hemoglobin 13.2, platelets to await, INR 1.3, BUN 34, creatinine 1.20, lactic acid 5.5, AST 109, ALT 27, alkaline phosphatase 210, total bilirubin 0.9, procalcitonin 3.9. Urine was red and cloudy with 2+ protein, 3+ blood, positive nitrate and 1+ leukocyte esterase, greater than 100 RBC and WBC, and 4+ bacteria. Stool was negative for C diff. Her chest x-ray did not show any acute cardiopulmonary disease. CT of the abdomen and pelvis showed new nonspecific periportal edema with a broad differential diagnosis, prominent cardiomegaly, unchanged 1.9 cm cystic lesion of the pancreas, and findings of pelvic vascular congestion syndrome. She received a 2 L IV fluid bolus and 1 g of ceftriaxone and she is being admitted in this setting for further treatment and evaluation. At the time my evaluation she is a bit restless and is trying to get out of bed. She has no complaints. Review of Systems Review of Systems: Unable to be obtained accurately given clinical condition. [facility] Past Medical History Medical History (Updated 07/15/23 @ 22:57 by Stella Aviles PA-C) Dementia Hypertension Hyperthyroidism Status post radioactive iodine ablation. Low vitamin D level Severe mitral regurgitation Thyroid nodule TIA (transient ischemic attack) Surgical History Surgical History (Updated 07/15/23 @ 22:46 by Stella Aviles PA-C) History of cholecystectomy History of laparoscopic appendectomy History of partial replacement of left hip joint using bipolar prosthesis (04/2023) April 2023 History of tonsillectomy and adenoidectomy Family History Family History Father Thyroid cancer Mother Arthritis Sibling Agent [place] poisoning Leukemia Other Diabetes mellitus Hypertension Social History Social History (Updated 07/15/23 @ 22:47 by Stella Aviles PA-C) Social History: Surrogate medical decision maker: Rob Ortiz (son) or Nereida Mccrayadolph (daughter). Code status: Do not resuscitate Smoking status: Unknown if ever smoked Second hand tobacco smoke exposure: Yes Additional smoking assessment comments: patient alert and oriented x 0 Alcohol intake: never Substance use: never Substance use type: does not use Lack of Transportation: No Lack of Food: Never True Current Housing: I Have Housing Concerned About Future Housing: No Difficulty Paying Gas/Electric Bills: No Difficulty Paying for Meds: No Currently Unemployed: No Education: High School Diploma/GED Difficulty w/ Childcare or Family Care: No Living arrangements: senior care Additional living arrangements comments: [facility]. She has 3 children. Occupation/Education: retired Additional occupation/education comments: [employer]. Spiritual care concerns
[2023-07-15] MEDS: LACTATED RINGERS 1,000 ML 999 ML IV CONT (23:34)
[2023-07-15] MEDS: QUEtiapine FUMARATE 25 MG TABLET PO (23:35)
[2023-07-15] MEDS: cefTRIAXone 2 GM/NS 100 ML 2 GM/100 ML BAG IVPB (23:46)
[2023-07-16] VITALS (8 sets, daily range): BP systolic 98–111; BP diastolic 54–58; PULSE 97–122; RESP 16–17; TEMP 36.4–37.3; O2SAT 93–96
[2023-07-16] MEDS: LACTATED RINGERS 1,000 ML 80 ML IV CONT ×2 (01:00→13:58)
[2023-07-16 05:01] LABS: Hematocrit 32.4 % (37.0-47.0); Hemoglobin 10.7 g/dL (12.0-15.0); Mean Corpuscular Hemoglobin 31.6 pg (26-34); Mean Corpuscular Volume 95.6 fl (80-100); Mean Platelet Volume 9.8 fl (7.4-10.4); Platelet Count Result 138 k/mm3 (150-375); Red Blood Count 3.39 M/mm3 (4.2-5.4); Red Cell Distribution Width 14.3 % (11.5-14.5); White Blood Count 34.2 K/mm3 (4.5-10.0)
[2023-07-16 05:10] LABS: Alanine Aminotransferase 172 U/L (6-35); Albumin Level 2.9 g/dL (3.5-5.1); Alkaline Phosphatase 226 U/L (38-126); Anion Gap 6 mmol/L (8-16); Aspartate Amino Transferase 657 U/L (14-36); Bilirubin,Total 1.5 mg/dL (0.2-1.3); Blood Urea Nitrogen 32 mg/dL (7-17); Calcium 7.9 mg/dL (8.4-10.2); Carbon Dioxide 23 mmol/L (22-30); Chloride 112 mmol/L (98-107); Estimated CRCL calculation 23 ml/min; Estimated Glomerular Filt Rate 47; Glucose 86 mg/dL (65-110); Magnesium 1.7 mg/dL (1.6-2.3); Potassium 3.6 mmol/L (3.4-5.0); Sodium 141 mmol/L (137-145)
[2023-07-16 05:36] LABS: Band Neutrophils Percent 12 % (0-6); Eosinophils Absolute Manual 0.34 K/mm3 (0.02-0.5); Eosinophils Percent Manual 1 % (0-4); Lymphocytes Absolute Manual 1.02 K/mm3 (1.1-4.5); Monocytes Absolute Manual 2.73 K/mm3 (0.1-0.90); Monocytes Percent Manual 8 % (3-9); Neutrophils Absolute Manual 30.09 K/mm3 (1.7-7.2); Neutrophils Percent Manual 76 % (46-73); Platelet Estimate Adequate (Adequate); Schistocytes None Seen (NORMAL); Total Cells Counted 100
[2023-07-16 06:02] LABS: Thyroid Stimulating Hormone Reflex < 0.015 uIU/mL (0.465-4.68)
[2023-07-16 06:03] LABS: Hepatitis B Surface Antigen Negative (Negative)
[2023-07-16 06:09] LABS: HAV RESULT Negative (Negative); Hepatitis B Core IgM Result Negative (Negative)
[2023-07-16 06:21] LABS: Hepatitis C Virus Antibody Negative (Negative)
[2023-07-16 07:57] LABS: Reflex Lactic Acid Yes or No Add Lactic
[2023-07-16] MEDS: FAMOTIDINE 20 MG TABLET PO (08:59)
[2023-07-16 09:02] LABS: Lactic Acid 3.1 mmol/L (0.7-2.0)
--- NOTE | 2023-07-16 09:42 | PM.IMPN ---
Progress Note: A&P Assessment and Plan (1) Severe sepsis: Code(s): A41.9 - Sepsis, unspecified organism; R65.20 - Severe sepsis without septic shock Status: Acute Assessment and Plan: Patient is brought in from the half-way with reports hematuria, worsening confusion, dysuria and agitation. Patient found to have severe sepsis with tachycardia, leukopenia, acute kidney injury, shock liver, low blood pressure and lactic acidosis. Chest x-ray did not show any acute cardiopulmonary disease. Urinalysis was consistent with UTI. CT of the abdomen pelvis showed mild periportal edema. She is status post cholecystectomy. Otherwise showing chronic persistent findings. Urine and blood cultures were collected. She was started on Rocephin. White count was 1.2K on admission but on repeat is now 34K with 12% bandemia. No CT brain but mental status changes related to sepsis. Lactic acid was 5.5 and is trending downward but still elevated. Acute kidney injury is improved. Urine output not accurate. No fevers. Blood cultures have already returned with Gram-negative bacilli in 1 bottle. Patient normally has hypertension and is on 2 medications for blood pressure. Blood pressure soft despite IV fluids. Will add meropenem coverage for Pseudomonas. Narrow antibiotics when able. (2) Urinary tract infection: Code(s): N39.0 - Urinary tract infection, site not specified Status: Acute Assessment and Plan: UA noted and consistent with UTI. Urine cultures pending. Blood cultures have returned positive as mentioned above. Adjust antibiotics until final results known. (3) Hematuria: Code(s): R31.9 - Hematuria, unspecified Status: Acute Assessment and Plan: No obvious structural abnormalities noted on CT scan. Suspect hematuria related to cystitis from her UTI. This should resolve with above treatment. (4) Confusion associated with infection: Code(s): B99.9 - Unspecified infectious disease; R41.0 - Disorientation, unspecified Status: Acute Assessment and Plan: Patient has underlying dementia made worse due to sepsis. Continue to follow (5) Acute kidney injury: Code(s): N17.9 - Acute kidney failure, unspecified Status: Acute Assessment and Plan: Creatinine 1.2 on admission. Her baseline creatinine is 0.5-0.8. Creatinine better today. Continue IV fluids. (6) Elevated LFTs: Code(s): R79.89 - Other specified abnormal findings of blood chemistry Status: Acute Assessment and Plan: AST ALT were mildly elevated on admission but have worsened today. Her bilirubin levels now 1.5. Abdominal ultrasound showed probably a small hemangioma of the liver but normal portal flow. No bile duct dilatation. Suspect this is related to shock liver related to sepsis. (7) Neutropenia: Code(s): D70.9 - Neutropenia, unspecified Status: Acute Assessment and Plan: Resolved. Suspect related to overwhelming sepsis. Adjust antibiotics. (8) Dementia: Code(s): F03.90 - Unspecified dementia, unspecified severity, without behavioral disturbance, psychotic disturbance, mood disturbance, and anxiety Status: Acute Assessment and Plan: Stable. Not on treatment at home. She may have chronic behavioral issues with her dementia. Continue Seroquel at night. (9) Hypertension: Qualifiers: Hypertension type: primary hypertension Qualified Code(s): I10 - Essential (primary) hypertension Code(s): I10 - Essential (primary) hypertension Status: Acute Assessment and Plan: Amlodipine and metoprolol on hold. High blood pressure not an issue at this time. Plan Undetectable TSH - FT4 elevated mildly to 2.27. Suspect related to sepsis picture. TSH was normal on 07/05/23. Plan to repeat once she is better. DVT prophylaxis -SCDs Code status -DNR Subjective Date/time see
[2023-07-16 10:06] LABS: Free T4 Free Thyroxine Reflex 2.27 ng/dL (0.78-2.19)
[2023-07-16] MEDS: MEROPENEM 500 MG in SODIUM CHLORIDE 0.9% IV 100 ML 200 ML IVPB ×2 (10:35→21:16)
[2023-07-16 11:40] LABS: Lactic Acid Reflex 3.8 mmol/L (0.7-2.0)
--- NOTE | 2023-07-16 20:00 | PC.NURSE ---
11am 07/16/23 Pt family has concerns about patient's current mental status and is concerned about a possible stroke. Educated family that patient has a sever UTI and is septic from the infection which is affecting her orientation. Family understood education provided and asked if doctor can come update them about the patient. Called Dr. Carr and he stated he will make his way up to the room shortly.
[2023-07-16] MEDS: QUEtiapine FUMARATE 25 MG TABLET PO (21:16)
[2023-07-17] VITALS (7 sets, daily range): BP systolic 110–147; BP diastolic 51–90; PULSE 80–109; RESP 16–18; TEMP 36.7–37.3; O2SAT 96–99; BMI 19.3
--- NOTE | 2023-07-17 | ECHO_ITS ---
Patient Info Name: Gege Ortiz Age: 83 years : 1940 Gender: Female Ht: 62 in Wt: 95 lbs BSA: 1.36 m2 HR: 100 bpm BP: 147 / 90 mmHg Heart Rhythm: Sinus Rhythm Technical Quality: Fair Exam Date: 07/17/2023 11:48 AM Exam Location: [facility] Patient Status: Inpatient Admit Date: 07/15/2023 Staff Ordering Physician: Stella Aviles PA-C [employer] Compliance Director: Anna Larsen RDCS Attending Provider: Fred Evans MD Referring Physician: Traci CARRENO; Exam Type: CA echo doppler color flow Study Info Indications - Cardiomegaly I10 - Essential (primary) hypertension Complete two-dimensional, color flow and Doppler transthoracic echocardiogram is performed. Summary 1. Complete two-dimensional, color flow and Doppler transthoracic echocardiogram is performed. 2. Left ventricular chamber dimension is normal. 3. Left ventricular systolic function is normal, estimated at 60-65%. 4. The left ventricular diastolic function is grade II diastolic dysfunction. 5. Left atrial chamber dimension is mildly enlarged. 6. There is mild aortic valve regurgitation. 7. There is moderate mitral valve regurgitation. 8. The mitral valve has thickened leaflets. 9. There is mild tricuspid valve regurgitation. 10. Moderate pulmonary hypertension, estimated pulmonary arterial systolic pressure is 53 mmHg. 11. pleural effusions seen. Left Ventricle Left ventricular chamber dimension is normal. Left ventricular systolic function is normal, estimated at 60-65%. There is no increased left ventricular wall thickness. The left ventricular diastolic function is grade II diastolic dysfunction. Right Ventricle Right ventricular chamber dimension is normal. Right ventricular systolic function is normal. Left Atria Left atrial chamber dimension is mildly enlarged. Right Atria Right atrial chamber dimension is normal. Atrial Septum Intact interatrial septum visualized by color flow imaging. Aortic Valve The aortic valve is trileaflet. There is mild aortic valve sclerosis. There is no aortic valve stenosis. There is mild aortic valve regurgitation. Pulmonic Valve The pulmonic valve is normal. There is no pulmonic valve stenosis. There is trace pulmonic regurgitation. Mitral Valve The mitral valve has thickened leaflets. There is no mitral valve stenosis. There is moderate mitral valve regurgitation. Tricuspid Valve The tricuspid valve leaflets are normal. There is no significant tricuspid valve stenosis. There is mild tricuspid valve regurgitation. Moderate pulmonary hypertension, estimated pulmonary arterial systolic pressure is 53 mmHg. Other Findings pleural effusions seen. Pericardium/Pleural The pericardium appears normal. There is no pericardial effusion. Inferior Vena Cava Normal inferior vena cava with <50% collapse upon inspiration consistent with elevated right atrial pressure, 10 mmHg. Aorta The aortic root size at the sinus of Valsalva is normal. Left Ventricular Outflow Tract Name Value Normal LVOT 2D LVOT Diameter 2.0 cm LVOT Doppler LVOT Peak Gradient 4 mmHg LVOT Mean Gradient 2 mmHg LVOT VTI
[2023-07-17] MEDS: LACTATED RINGERS 1,000 ML 80 ML IV CONT (03:28)
[2023-07-17 06:02] LABS: Hematocrit 32.4 % (37.0-47.0); Hemoglobin 10.4 g/dL (12.0-15.0); Immature Platelet Fraction Pct 3.4 % (0.9-11.2); Mean Corpuscular HGB Conc 32.1 g/dl (32-36); Mean Corpuscular Hemoglobin 31.3 pg (26-34); Mean Corpuscular Volume 97.6 fl (80-100); Mean Platelet Volume 10.2 fl (7.4-10.4); Platelet Count Result 128 k/mm3 (150-375); Red Blood Count 3.32 M/mm3 (4.2-5.4); Red Cell Distribution Width 14.5 % (11.5-14.5); White Blood Count 35.2 K/mm3 (4.5-10.0)
[2023-07-17 06:11] LABS: Alanine Aminotransferase 133 U/L (6-35); Albumin Level 2.9 g/dL (3.5-5.1); Alkaline Phosphatase 202 U/L (38-126); Anion Gap 5 mmol/L (8-16); Aspartate Amino Transferase 363 U/L (14-36); Bilirubin,Total 0.9 mg/dL (0.2-1.3); Blood Urea Nitrogen 34 mg/dL (7-17); Calcium 7.7 mg/dL (8.4-10.2); Carbon Dioxide 25 mmol/L (22-30); Chloride 114 mmol/L (98-107); Estimated CRCL calculation 35 ml/min; Estimated Glomerular Filt Rate > 60; Glucose 69 mg/dL (65-110); Magnesium 2.2 mg/dL (1.6-2.3); Phosphorus 3.4 mg/dL (2.5-4.5); Potassium 3.2 mmol/L (3.4-5.0); Sodium 144 mmol/L (137-145)
[2023-07-17 06:31] LABS: Band Neutrophils Percent 26 % (0-6); Lymphocytes Absolute Manual 0.35 K/mm3 (1.1-4.5); Lymphocytes Percent Manual 1 % (18-44); Monocytes Absolute Manual 0.35 K/mm3 (0.1-0.90); Monocytes Percent Manual 1 % (3-9); Neutrophils Absolute Manual 34.49 K/mm3 (1.7-7.2); Neutrophils Percent Manual 72 % (46-73); Schistocytes None Seen (NORMAL); Total Cells Counted 100
[2023-07-17 06:32] LABS: Burr Cells 2+ (NORMAL)
[2023-07-17 07:38] LABS: Glucose Point of Care 69 mg/dl (65-105)
[2023-07-17] MEDS: DEXTROSE 50% 25 GM/50 ML SYRINGE IV PUSH (07:41)
[2023-07-17] MEDS: DEXTROSE 5%/0.9% SOD CHL 1,000 ML 70 ML IV CONT ×2 (07:41→23:51)
[2023-07-17 08:40] LABS: Glucose Point of Care 115 mg/dl (65-105)
--- NOTE | 2023-07-17 09:05 | PM.IMPN ---
Progress Note: A&P Assessment and Plan (1) Severe sepsis: Code(s): A41.9 - Sepsis, unspecified organism; R65.20 - Severe sepsis without septic shock Status: Acute Assessment and Plan: Patient is [facility] in from the [facility] with reports hematuria, worsening confusion, dysuria and agitation. Patient found to have severe sepsis with tachycardia, leukopenia, acute kidney injury, shock liver, low blood pressure and lactic acidosis. Chest x-ray did not show any acute cardiopulmonary disease. Urinalysis was consistent with UTI. CT of the abdomen pelvis showed mild periportal edema. She is status post cholecystectomy. Otherwise showing chronic persistent findings. Urine and blood cultures were collected. She was started on Rocephin. White count was 1.2K on admission but on repeat was 34K with 12% bandemia. Lactic acid was 5.5 and is trending downward but still elevated. Acute kidney injury is improved. Urine output not accurate. No fevers. Blood cultures have already returned with Gram-negative bacilli in 2 bottles; UCx also has similar findings. Patient normally has hypertension and is on 2 medications for blood pressure. Blood pressure was soft but improved now. Continue meropenem. Narrow antibiotics when able. (2) Urinary tract infection: Code(s): N39.0 - Urinary tract infection, site not specified Status: Acute Assessment and Plan: UA noted and consistent with UTI. Urine cultures growing gram negative bacilli. Blood cultures have returned positive as mentioned above. Continue IV abx. (3) Hematuria: Code(s): R31.9 - Hematuria, unspecified Status: Acute Assessment and Plan: No obvious structural abnormalities noted on CT scan. Suspect hematuria related to cystitis from her UTI. This should resolve with above treatment. (4) Confusion associated with infection: Code(s): B99.9 - Unspecified infectious disease; R41.0 - Disorientation, unspecified Status: Acute Assessment and Plan: Patient has underlying dementia made worse due to sepsis. Continue to follow (5) Acute kidney injury: Code(s): N17.9 - Acute kidney failure, unspecified Status: Acute Assessment and Plan: Creatinine 1.2 on admission. Her baseline creatinine is 0.5-0.8. Creatinine back to baseline. Change to maintenance IV fluids. (6) Elevated LFTs: Code(s): R79.89 - Other specified abnormal findings of blood chemistry Status: Acute Assessment and Plan: AST/ALT were mildly elevated on admission but then worsened. Her bilirubin levels up to 1.5. Abdominal ultrasound showed probably a small hemangioma of the liver but normal portal flow. No bile duct dilatation. Hepatitis panel negative. Suspect this is related to shock liver related to sepsis. LFTs trending down now. Follow (7) Neutropenia: Code(s): D70.9 - Neutropenia, unspecified Status: Acute Assessment and Plan: Resolved. Suspect related to overwhelming sepsis. As above (8) Dementia: Code(s): F03.90 - Unspecified dementia, unspecified severity, without behavioral disturbance, psychotic disturbance, mood disturbance, and anxiety Status: Acute Assessment and Plan: Stable. Not on treatment at home. She may have chronic behavioral issues with her dementia. Continue Seroquel at night. (9) Hypertension: Qualifiers: Hypertension type: primary hypertension Qualified Code(s): I10 - Essential (primary) hypertension Code(s): I10 - Essential (primary) hypertension Status: Acute Assessment and Plan: Amlodipine and metoprolol on hold. High blood pressure not an issue at this time. Plan Undetectable TSH - FT4 mildly elevated to 2.27. Suspect related to sepsis picture. TSH was normal on 07/05/23. Plan to repeat once she is better. DVT prophylaxis -SCDs Code status -DNR Subjective Date/time
[2023-07-17] MEDS: POTASSIUM CHLORIDE 20 MEQ PACKET (FOR LIQUID) 40 MEQ PO (09:12)
[2023-07-17] MEDS: FAMOTIDINE 20 MG TABLET PO ×2 (09:12→17:33)
[2023-07-17] MEDS: MEROPENEM 500 MG in SODIUM CHLORIDE 0.9% IV 100 ML 200 ML IVPB (09:13)
[2023-07-17 11:15] LABS: Lactic Acid Reflex 1.7 mmol/L (0.7-2.0)
--- NOTE | 2023-07-17 13:40 | PCSTNOTE ---
Please refer to the Bedside Swallow Evaluation in the EMR. Please note, silent aspiration cannot be ruled out at bedside.
--- NOTE | 2023-07-17 15:22 | PCSTNOTE ---
Please refer to the Modified Barium Swallow Evaluation in the EMR.
[2023-07-17] MEDS: QUEtiapine FUMARATE 25 MG TABLET PO (20:55)
[2023-07-17] MEDS: MEROPENEM 1 GM/NS 100 ML 1 GM/100 ML BAG IVPB (20:57)
[2023-07-18] VITALS (8 sets, daily range): BP systolic 126–154; BP diastolic 66–86; PULSE 81–98; RESP 16–20; TEMP 36.2–36.8; O2SAT 93–99
[2023-07-18 05:49] LABS: Basophils Percent Auto 0.1 % (0.2-1.2); Eosinophils Absolute Auto 0.2 K/mm3 (0-0.3); Eosinophils Percent Auto 0.7 % (0-4.4); Hemoglobin 10.3 g/dL (12.0-15.0); Immature Granulocyte Absolute 0.27 K/mm3 (0.00-0.031); Lymphocytes Absolute Auto 1.29 K/mm3 (0.9-3.2); Lymphocytes Percent Auto 4.8 % (18.3-44.2); Mean Corpuscular HGB Conc 30.3 g/dl (32-36); Mean Corpuscular Hemoglobin 31.5 pg (26-34); Mean Platelet Volume 10.7 fl (7.4-10.4); Monocytes Absolute Auto 0.7 K/mm3 (0.1-0.6); Monocytes Percent Auto 2.7 % (2.6-8.5); Neutrophils Absolute Auto 24.4 K/mm3 (1.3-6.7); Neutrophils Percent Auto 90.7 % (45.5-73.1); Platelet Count Result 111 k/mm3 (150-375); Red Blood Count 3.27 M/mm3 (4.2-5.4); Red Cell Distribution Width 14.6 % (11.5-14.5); White Blood Count 26.9 K/mm3 (4.5-10.0)
[2023-07-18 05:56] LABS: Alanine Aminotransferase 93 U/L (6-35); Albumin Level 2.6 g/dL (3.5-5.1); Alkaline Phosphatase 184 U/L (38-126); Anion Gap 4 mmol/L (8-16); Aspartate Amino Transferase 230 U/L (14-36); Bilirubin,Total 0.7 mg/dL (0.2-1.3); Blood Urea Nitrogen 26 mg/dL (7-17); Calcium 7.9 mg/dL (8.4-10.2); Carbon Dioxide 23 mmol/L (22-30); Chloride 118 mmol/L (98-107); Estimated CRCL calculation 39 ml/min; Estimated Glomerular Filt Rate > 60; Glucose 97 mg/dL (65-110); Magnesium 2.2 mg/dL (1.6-2.3); Phosphorus 2.1 mg/dL (2.5-4.5); Potassium 3.4 mmol/L (3.4-5.0); Sodium 145 mmol/L (137-145)
--- NOTE | 2023-07-18 06:17 | PC.NURSE ---
Pt complaining of abdominal pain. During the day on 07/17/2023, patient was found by day nurse to be eating the [employer] water beads out of the sensory bags. Day nurse removed objects that were seen. Notified day hospitalist. Day nurse notified this nurse that if pt were to begin having abdominal pain that they should notify the hospitalist. Communicated with Dr. Macedo via phone. Dr. Macedo did not want to do anything aggressive at this time. Was asked to have day nurse call back to hospitalist after 0700.
[2023-07-18] MEDS: FAMOTIDINE 20 MG TABLET PO ×2 (10:51→18:23)
[2023-07-18] MEDS: MEROPENEM 1 GM/NS 100 ML 1 GM/100 ML BAG IVPB (10:51)
[2023-07-18] MEDS: POTASSIUM CHLORIDE 20 MEQ PACKET (FOR LIQUID) PO (10:52)
[2023-07-18] MEDS: POTASSIUM/PHOSPHORUS/SODIUM 1.5 GM PACKET 1 PACKET PO (10:52)
--- NOTE | 2023-07-18 11:05 | PCNFU ---
Nutrition Follow-Up Complete: Inadequate oral intake related to dysphagia, loss of appetite, dementia as evidenced by 0% intakes, findings of MBSS Goal: Improved PO intake at least 50% meals and supplements Patient has limited progress towards goal. We will continue current goal. Pt current nutrition is Regular, Moderately thick, Level 3. Last recorded weight is 48.1 kg. Bowel Motility:+BM reported 07/16 Labs Reviewed:BUN 26, Alb 2.6,Hct 34.0,Hgb 10.3 Meds Noted:Seroquel, Dextrose 5%/Sodium Skin: WNL Additional Notes: Patient on a regular diet with Mod Thick liquids, Level 3. MBS-07/17. Oral intake poor, 25% reported. Recommend adding ensure compact BID for additional 220 kcals and 9 gms protein. Agree with diet orders. Monitor diet orders, swallow ability, intakes, weights, labs, plan of care every 5 days.
--- NOTE | 2023-07-18 11:25 | PM.IMPN ---
Progress Note: A&P Assessment and Plan (1) Severe sepsis: Code(s): A41.9 - Sepsis, unspecified organism; R65.20 - Severe sepsis without septic shock Status: Acute Assessment and Plan: [facility] with reports hematuria, worsening confusion, dysuria and agitation. Patient found to have severe sepsis with tachycardia, leukopenia, acute kidney injury, shock liver, low blood pressure and lactic acidosis. Chest x-ray did not show any acute cardiopulmonary disease. Urinalysis was consistent with UTI. CT of the abdomen pelvis showed mild periportal edema. She is status post cholecystectomy. Otherwise showing chronic persistent findings. Urine and blood cultures were collected. She was started on Rocephin. White count was 1.2K on admission but on repeat was 34K with 12% bandemia. Lactic acid was 5.5; normal now Acute kidney injury resolved. Urine output not accurate. No fevers. BCx growing ESBL Proteus in 2 bottles; UCx also has similar findings. Patient normally has hypertension and is on 2 medications for blood pressure. Blood pressure was soft but improved now. On meropenem. Narrow antibiotics to Invanz Patient has responded well to antibiotics. No obstructing lesions noted in the urinary system. No concerns for kidney abscess. Do not feel the need to repeat blood cultures since she is on appropriate antibiotics and is responding well. Will proceed with [facility] for plans for IV antibiotics at discharge. (2) Urinary tract infection: Code(s): N39.0 - Urinary tract infection, site not specified Status: Acute Assessment and Plan: UA noted and consistent with UTI. Urine cultures growing ESBL Proteus. Blood cultures also growing ESBL Proteus. Renal US showing no concerning findings. Continue IV abx as mentioned above. (3) Hematuria: Code(s): R31.9 - Hematuria, unspecified Status: Acute Assessment and Plan: No obvious structural abnormalities noted on CT scan. Suspect hematuria related to cystitis from her UTI. This should resolve with above treatment. (4) Confusion associated with infection: Code(s): B99.9 - Unspecified infectious disease; R41.0 - Disorientation, unspecified Status: Acute Assessment and Plan: Patient has underlying dementia made worse due to sepsis. Mental status much better. Continue to follow (5) Acute kidney injury: Code(s): N17.9 - Acute kidney failure, unspecified Status: Acute Assessment and Plan: Creatinine 1.2 on admission. Her baseline creatinine is 0.5-0.8. Creatinine back to baseline. Stop IV fluids. (6) Elevated LFTs: Code(s): R79.89 - Other specified abnormal findings of blood chemistry Status: Acute Assessment and Plan: AST/ALT were mildly elevated on admission but then worsened. Her bilirubin levels up to 1.5. Abdominal ultrasound showed probably a small hemangioma of the liver but normal portal flow. No bile duct dilatation. Hepatitis panel negative. Suspect this is related to shock liver related to sepsis. LFTs trending down now. Follow (7) Neutropenia: Code(s): D70.9 - Neutropenia, unspecified Status: Acute Assessment and Plan: Resolved. Suspect related to overwhelming sepsis or possibly lab error. As above (8) Dementia: Code(s): F03.90 - Unspecified dementia, unspecified severity, without behavioral disturbance, psychotic disturbance, mood disturbance, and anxiety Status: Acute Assessment and Plan: Stable. Not on treatment at home. She may have chronic behavioral issues with her dementia. Continue Seroquel at night. (9) Hypertension: Qualifiers: Hypertension type: primary hypertension Qualified Code(s): I10 - Essential (primary) hypertension Code(s): I10 - Essential (primary) hypertension Status: Acute Assessment and Plan: Caty
--- NOTE | 2023-07-18 15:18 | PC.NURSE ---
On 07/18/23, the student, [Wallace Kibry], provided care and completed [facility] documentation on this patient. I have reviewed the student's documentation and agree with the findings.
[2023-07-18] MEDS: LIDOCAINE HCL 1% LOCAL INJ 2 ML AMPUL 5 ML INFILTRATE (15:50)
[2023-07-18] MEDS: QUEtiapine FUMARATE 25 MG TABLET PO (21:25)
[2023-07-18] MEDS: ERTAPENEM 1 GM/NS 50 ML 1 GM/50 ML BAG IVPB (21:25)
[2023-07-18] MEDS: SALINE LOCK FLUSH 10 ML IV PUSH (21:26)
[2023-07-19] VITALS (8 sets, daily range): BP systolic 144–158; BP diastolic 71–89; PULSE 78–99; RESP 16–18; TEMP 36.2–37.1; O2SAT 93–96
[2023-07-19 05:19] LABS: Basophils Absolute Auto 0.1 K/mm3 (0.0-0.1); Basophils Percent Auto 0.5 % (0.2-1.2); Eosinophils Absolute Auto 0.2 K/mm3 (0-0.3); Eosinophils Percent Auto 1.5 % (0-4.4); Hematocrit 34.1 % (37.0-47.0); Hemoglobin 10.7 g/dL (12.0-15.0); Immature Granulocyte Absolute 0.23 K/mm3 (0.00-0.031); Immature Granulocyte Percent A 1.5 % (0-0.5); Immature Platelet Fraction Pct 4.7 % (0.9-11.2); Lymphocytes Absolute Auto 1.73 K/mm3 (0.9-3.2); Lymphocytes Percent Auto 11.5 % (18.3-44.2); Mean Corpuscular HGB Conc 31.4 g/dl (32-36); Mean Corpuscular Hemoglobin 30.6 pg (26-34); Mean Corpuscular Volume 97.4 fl (80-100); Mean Platelet Volume 10.8 fl (7.4-10.4); Monocytes Percent Auto 6.9 % (2.6-8.5); Neutrophils Absolute Auto 11.8 K/mm3 (1.3-6.7); Neutrophils Percent Auto 78.1 % (45.5-73.1); Platelet Count Result 116 k/mm3 (150-375); White Blood Count 15.1 K/mm3 (4.5-10.0)
[2023-07-19 05:30] LABS: Alanine Aminotransferase 70 U/L (6-35); Albumin Level 2.6 g/dL (3.5-5.1); Alkaline Phosphatase 180 U/L (38-126); Anion Gap 5 mmol/L (8-16); Aspartate Amino Transferase 136 U/L (14-36); Bilirubin,Total 0.9 mg/dL (0.2-1.3); Blood Urea Nitrogen 16 mg/dL (7-17); Calcium 7.7 mg/dL (8.4-10.2); Carbon Dioxide 23 mmol/L (22-30); Chloride 115 mmol/L (98-107); Estimated CRCL calculation 45 ml/min; Estimated Glomerular Filt Rate > 60; Glucose 88 mg/dL (65-110); Magnesium 1.8 mg/dL (1.6-2.3); Phosphorus 2.5 mg/dL (2.5-4.5); Potassium 3.3 mmol/L (3.4-5.0); Sodium 143 mmol/L (137-145)
--- NOTE | 2023-07-19 08:24 | P.PNIM_ITS ---
Progress Note: A&P Assessment and Plan (1) Severe sepsis: Code(s): A41.9 - Sepsis, unspecified organism; R65.20 - Severe sepsis without septic shock Status: Acute Assessment and Plan: Patient is [facility] in from the [facility] with reports hematuria, worsening confusion, dysuria and agitation. Patient found to have severe sepsis with tachycardia, leukopenia, acute kidney injury, shock liver, low blood pressure and lactic acidosis. Chest x-ray did not show any acute cardiopulmonary disease. Urinalysis was consistent with UTI. CT of the abdomen pelvis showed mild periportal edema. She is status post cholecystectomy. Otherwise showing chronic persistent findings. Urine and blood cultures were collected. She was started on Rocephin. White count was 1.2K on admission but on repeat was 34K with 12% bandemia. Lactic acid was 5.5; normal now Acute kidney injury resolved. Urine output not accurate. No fevers. BCx growing ESBL Proteus in 2 bottles; UCx also has similar findings. Patient normally has hypertension and is on 2 medications for blood pressure. Blood pressure was soft but improved now. On meropenem. Narrow antibiotics to Invanz Patient has responded well to antibiotics. No obstructing lesions noted in the urinary system. No concerns for kidney abscess. Do not feel the need to repeat blood cultures since she is on appropriate antibiotics and is responding well. [facility] proceed [facility] for plans for IV antibiotics at discharge. (2) Urinary tract infection: Code(s): N39.0 - Urinary tract infection, site not specified Status: Acute Assessment and Plan: UA noted and consistent with UTI. Urine cultures growing ESBL Proteus. Blood cultures also growing ESBL Proteus. Renal US showing no concerning findings. Continue IV abx as mentioned above. (3) Hematuria: Code(s): R31.9 - Hematuria, unspecified Status: Acute Assessment and Plan: No obvious structural abnormalities noted on CT scan. Suspect hematuria related to cystitis from her UTI. This should resolve with above treatment. (4) Confusion associated with infection: Code(s): B99.9 - Unspecified infectious disease; R41.0 - Disorientation, unspecified Status: Acute Assessment and Plan: Patient has underlying dementia made worse due to sepsis. Mental status much better. Continue to follow (5) Acute kidney injury: Code(s): N17.9 - Acute kidney failure, unspecified Status: Acute Assessment and Plan: Creatinine 1.2 on admission. Her baseline creatinine is 0.5-0.8. Creatinine back to baseline. Stop IV fluids. (6) Elevated LFTs: Code(s): R79.89 - Other specified abnormal findings of blood chemistry Status: Acute Assessment and Plan: AST/ALT were mildly elevated on admission but then worsened. Her bilirubin levels up to 1.5. Abdominal ultrasound showed probably a small hemangioma of the liver but normal portal flow. No bile duct dilatation. Hepatitis panel negative. Suspect this is related to shock liver related to sepsis. LFTs trending down now. Follow (7) Neutropenia: Code(s): D70.9 - Neutropenia, unspecified Status: Acute Assessment and Plan: Resolved. Suspect related to overwhelming sepsis or possibly lab error. As above (8) Dementia: Code(s): F03.90 - Unspecified dementia, unspecified severity, without behavioral disturbance, psychotic disturbance, mood disturbance, and anxiety Status: Acute Assessment and Pl
[2023-07-19] MEDS: SALINE LOCK FLUSH 10 ML IV PUSH ×3 (09:13→21:19)
[2023-07-19] MEDS: FAMOTIDINE 20 MG TABLET PO ×2 (09:13→17:06)
[2023-07-19] MEDS: ERTAPENEM 1 GM/NS 50 ML 1 GM/50 ML BAG IVPB (21:18)
[2023-07-19] MEDS: METOPROLOL TARTRATE 25 MG TABLET PO (21:18)
[2023-07-19] MEDS: QUEtiapine FUMARATE 25 MG TABLET PO (21:18)
[2023-07-19] MEDS: busPIRone HCL 10 MG TABLET PO (21:18)
[2023-07-20] VITALS (11 sets, daily range): BP systolic 124–155; BP diastolic 62–89; PULSE 76–98; RESP 16–18; TEMP 36.2–36.8; O2SAT 94–97
[2023-07-20] MEDS: SALINE LOCK FLUSH 10 ML IV PUSH ×3 (05:34→20:59)
[2023-07-20 06:43] LABS: Hematocrit 35.7 % (37.0-47.0); Hemoglobin 11.6 g/dL (12.0-15.0); Immature Platelet Fraction Pct 6.8 % (0.9-11.2); Mean Corpuscular HGB Conc 32.5 g/dl (32-36); Mean Corpuscular Volume 95.5 fl (80-100); Mean Platelet Volume 11.4 fl (7.4-10.4); Platelet Count Result 118 k/mm3 (150-375); Red Blood Count 3.74 M/mm3 (4.2-5.4); Red Cell Distribution Width 13.8 % (11.5-14.5); White Blood Count 8.8 K/mm3 (4.5-10.0)
[2023-07-20 06:51] LABS: Alanine Aminotransferase 56 U/L (6-35); Albumin Level 2.7 g/dL (3.5-5.1); Alkaline Phosphatase 150 U/L (38-126); Anion Gap 0 mmol/L (8-16); Aspartate Amino Transferase 79 U/L (14-36); Bilirubin,Total 0.8 mg/dL (0.2-1.3); Blood Urea Nitrogen 15 mg/dL (7-17); Calcium 7.7 mg/dL (8.4-10.2); Carbon Dioxide 29 mmol/L (22-30); Chloride 112 mmol/L (98-107); Estimated CRCL calculation 44 ml/min; Estimated Glomerular Filt Rate > 60; Glucose 80 mg/dL (65-110); Magnesium 1.9 mg/dL (1.6-2.3); Phosphorus 3.1 mg/dL (2.5-4.5); Potassium 3.4 mmol/L (3.4-5.0); Sodium 141 mmol/L (137-145)
[2023-07-20 09:18] LABS: Anisocytosis 1+ (NORMAL); Band Neutrophils Percent 2 % (0-6); Lymphocytes Absolute Manual 2.46 K/mm3 (1.1-4.5); Monocytes Absolute Manual 0.96 K/mm3 (0.1-0.90); Monocytes Percent Manual 11 % (3-9); Neutrophils Absolute Manual 5.36 K/mm3 (1.7-7.2); Neutrophils Percent Manual 59 % (46-73); Schistocytes None Seen (NORMAL); Total Cells Counted 100
[2023-07-20 09:19] LABS: Hypochromasia 1+ (NORMAL)
[2023-07-20] MEDS: FAMOTIDINE 20 MG TABLET PO ×2 (09:55→17:33)
[2023-07-20] MEDS: amLODIPine BESYLATE 2.5 MG TABLET PO (09:56)
[2023-07-20] MEDS: busPIRone HCL 10 MG TABLET PO ×2 (09:56→20:53)
[2023-07-20] MEDS: METOPROLOL TARTRATE 25 MG TABLET PO ×2 (09:56→20:53)
--- NOTE | 2023-07-20 12:00 | PC.NURSE ---
On 07/20/23, the student, [Millicent Sims], provided care and completed [facility] on [facility]. I have reviewed the student's documentation and agree with the findings.
--- NOTE | 2023-07-20 15:10 | PM.IMPN ---
Progress Note: A&P Assessment and Plan (1) Severe sepsis: Code(s): A41.9 - Sepsis, unspecified organism; R65.20 - Severe sepsis without septic shock Status: Acute Assessment and Plan: Patient is brought in from the [place] [facility] with reports hematuria, worsening confusion, dysuria and agitation. Patient found to have severe sepsis with tachycardia, leukopenia, acute kidney injury, shock liver, low blood pressure and lactic acidosis. Chest x-ray did not show any acute cardiopulmonary disease. Urinalysis was consistent with UTI. CT of the abdomen pelvis showed mild periportal edema. She is status post cholecystectomy. Otherwise showing chronic persistent findings. Urine and blood cultures were collected. She was started on Rocephin. White count was 1.2K on admission but on repeat was 34K with 12% bandemia. Lactic acid was 5.5; normal now Acute kidney injury resolved. Urine output not accurate. No fevers. BCx growing ESBL Proteus in 2 bottles; UCx also has similar findings. Patient normally has hypertension and is on 2 medications for blood pressure. Blood pressure was soft but improved now. On meropenem. Narrow antibiotics to Invanz Patient has responded well to antibiotics. No obstructing lesions noted in the urinary system. No concerns for kidney abscess. Do not feel the need to repeat blood cultures since she is on appropriate antibiotics and is responding well. Awaiting insurance approval for ertapenem infusions at d/c (2) Urinary tract infection: Code(s): N39.0 - Urinary tract infection, site not specified Status: Acute Assessment and Plan: UA noted and consistent with UTI. Urine cultures growing ESBL Proteus. Blood cultures also growing ESBL Proteus. Renal US showing no concerning findings. Continue IV abx as mentioned above. (3) Hematuria: Code(s): R31.9 - Hematuria, unspecified Status: Acute Assessment and Plan: No obvious structural abnormalities noted on CT scan. Suspect hematuria related to cystitis from her UTI. This should resolve with above treatment. (4) Confusion associated with infection: Code(s): B99.9 - Unspecified infectious disease; R41.0 - Disorientation, unspecified Status: Acute Assessment and Plan: Patient has underlying dementia made worse due to sepsis. Mental status much better. Continue to follow (5) Acute kidney injury: Code(s): N17.9 - Acute kidney failure, unspecified Status: Acute Assessment and Plan: Creatinine 1.2 on admission. Her baseline creatinine is 0.5-0.8. Creatinine back to baseline. Stop IV fluids. (6) Elevated LFTs: Code(s): R79.89 - Other specified abnormal findings of blood chemistry Status: Acute Assessment and Plan: AST/ALT were mildly elevated on admission but then worsened. Her bilirubin levels up to 1.5. Abdominal ultrasound showed probably a small hemangioma of the liver but normal portal flow. No bile duct dilatation. Hepatitis panel negative. Suspect this is related to shock liver related to sepsis. LFTs trending down now. Follow (7) Neutropenia: Code(s): D70.9 - Neutropenia, unspecified Status: Acute Assessment and Plan: Resolved. Suspect related to overwhelming sepsis or possibly lab error. As above (8) Dementia: Code(s): F03.90 - Unspecified dementia, unspecified severity, without behavioral disturbance, psychotic disturbance, mood disturbance, and anxiety Status: Acute Assessment and Plan: Stable. Not on treatment at home. She may have chronic behavioral issues with her dementia. Continue Seroquel at night. (9) Hypertension: Qualifiers: Hypertension type: primary hypertension Qualified Code(s): I10 - Essential (primary) hypertension Code(s): I10 - Essential (primary) hypertension Status: Acute Assessment and Plan: Patient's bloo
[2023-07-20] MEDS: QUEtiapine FUMARATE 25 MG TABLET PO (20:53)
[2023-07-20] MEDS: ERTAPENEM 1 GM/NS 50 ML 1 GM/50 ML BAG IVPB (20:54)
[2023-07-21] VITALS (8 sets, daily range): BP systolic 143–152; BP diastolic 70–93; PULSE 68–92; RESP 18; TEMP 36.2–36.5; O2SAT 95–100
[2023-07-21] MEDS: SALINE LOCK FLUSH 10 ML IV PUSH ×2 (05:45→18:37)
[2023-07-21 06:07] LABS: Hematocrit 39.6 % (37.0-47.0); Hemoglobin 12.3 g/dL (12.0-15.0); Mean Corpuscular HGB Conc 31.1 g/dl (32-36); Mean Corpuscular Hemoglobin 30.6 pg (26-34); Mean Corpuscular Volume 98.5 fl (80-100); Mean Platelet Volume 11.1 fl (7.4-10.4); Platelet Count Result 152 k/mm3 (150-375); Red Blood Count 4.02 M/mm3 (4.2-5.4); Red Cell Distribution Width 13.7 % (11.5-14.5)
[2023-07-21 06:11] LABS: Alanine Aminotransferase 45 U/L (6-35); Albumin Level 2.7 g/dL (3.5-5.1); Alkaline Phosphatase 149 U/L (38-126); Anion Gap 7 mmol/L (8-16); Aspartate Amino Transferase 53 U/L (14-36); Bilirubin,Total 0.7 mg/dL (0.2-1.3); Blood Urea Nitrogen 18 mg/dL (7-17); Calcium 7.9 mg/dL (8.4-10.2); Carbon Dioxide 24 mmol/L (22-30); Chloride 111 mmol/L (98-107); Estimated CRCL calculation 43 ml/min; Estimated Glomerular Filt Rate > 60; Glucose 71 mg/dL (65-110); Potassium 3.8 mmol/L (3.4-5.0); Sodium 142 mmol/L (137-145)
--- NOTE | 2023-07-21 08:17 | PM.IMPN ---
Subjective Date/time seen: 07/21/23 08:17 Objective Data Vital Signs Vital Signs: Vital Signs - 24 hr 07/20/23 08:36 07/20/23 09:51 07/20/23 09:56 Temperature Pulse Rate 93 93 Respiratory Rate Blood Pressure 150/87 H Pulse Oximetry 94 Oxygen Delivery Room Air 07/20/23 09:50 07/20/23 10:00 07/20/23 13:59 Temperature 97.1 F L 98.2 F Pulse Rate 84 98 Respiratory Rate 18 18 Blood Pressure 152/79 H 149/77 H Pulse Oximetry 96 96 Oxygen Delivery Room Air 07/20/23 18:00 07/20/23 20:18 07/20/23 20:53 Temperature 98.2 F 97.8 F Pulse Rate 82 83 83 Respiratory Rate 18 18 Blood Pressure 148/76 H 134/89 Pulse Oximetry 96 97 Oxygen Delivery 07/21/23 00:40 07/20/23 20:45 07/21/23 04:55 Temperature 97.6 F 97.4 F L Pulse Rate 74 68 Respiratory Rate 18 18 Blood Pressure 147/93 H 144/70 H Pulse Oximetry 95 97 Oxygen Delivery Room Air 07/20/23 22:27 Temperature Pulse Rate Respiratory Rate Blood Pressure Pulse Oximetry 97 Oxygen Delivery Room Air Intake/Output Intake/Output: Intake & Output 07/18/23 07/19/23 07/20/23 07/21/23 23:59 23:59 23:59 23:59 Intake Total 2330 1230 930 0 Output Total 600 300 200 Balance 1730 1230 630 -200 Meds/Results Medications: Active Medications Generic Name Dose Route Start Last Admin Trade Name Freq PRN Reason Stop Dose Admin Amlodipine Besylate 2.5 mg 07/20/23 09:00 07/20/23 09:56 Amlodipine Besylate 2.5 Mg Tablet PO 2.5 mg QAM MADDIE Administration Buspirone HCl 10 mg 07/19/23 21:00 07/20/23 20:53 Buspirone Hcl 10 Mg Tablet PO 10 mg Q12HR MADDIE Administration Dextrose 12.5 gm 07/17/23 07:31 07/17/23 07:41 Dextrose 50% 25 Gm/50 Ml Syringe IV PUSH 12.5 gm PRN PRN Administration Hypoglycemia Protocol Famotidine 20 mg 07/16/23 09:00 07/20/23 17:33 Famotidine 20 Mg Tablet PO 20 mg BID MADDIE Administration Glucagon 1 mg 07/17/23 07:31 Glucagon For Inj 1 Mg Vial IM PRN PRN Hypoglycemia Protocol Glucose 15 gm 07/17/23 07:31 Glucose Oral Gel 15 Gm Of Glucse In 37.5 Gm Tube PO PRN PRN Hypoglycemia Protocol Dextrose 1,000 mls @ 100 mls/hr 07/17/23 07:31 Dextrose 5% 1,000 Ml IVPB PRN PRN Hypoglycemia Protocol Ertapenem 1 gm in 50 mls @ 100 mls/hr 07/18/23 21:00 07/20/23 21:24 Invanz 1 Gm/Ns 50 Ml IVPB 07/25/23 21:29 Infused Q24H MADDIE Infusion Metoprolol Tartrate 25 mg 07/19/23 21:00 07/20/23 20:53 Metoprolol Tartrate 25 Mg Tablet PO 25 mg Q12HR MADDIE Administration Ondansetron HCl 4 mg 07/15/23 18:55 Ondansetron Inj 4 Mg/2 Ml Vial IV PUSH Q4H PRN Nausea Quetiapine Fumarate 25 mg 07/15/23 22:25 07/20/23 20:53 Quetiapine Fumarate 25 Mg Tablet PO 25 mg QHS MADDIE Administration Sodium Chloride 10 ml 07/18/23 22:00 07/21/23 05:45 Saline Lock Flush IV PUSH 10 ml Q8HR MADDIE Administration Sodium Chloride 10 ml 07/18/23 16:59 Saline Lock Flush IV PUSH PRN PRN Flush Sodium Chloride 20 ml 07/18/23 16:59 Saline Lock Flush IV PUSH PRN PRN after blood draws Radiology Results: ITS Impressions Chest X-Ray 07/15/23 17:18 IMPRESSION: 1. Cardiomegaly. No acute cardiopulmonary disease. Abdomen/Pelvis CT 07/15/23 17:56 IMPRESSION: 1. New nonspecific periportal edema. Differential would include congestive heart failure, acute hepatitis, hepatic or abdominal trauma particularly with aggressive fluid resuscitation, cholangitis or acute pyelonephritis. 2. Prominent cardiomegaly. 3. Unchanged 1.9 cm cystic lesion of the pancreas. See prior report on 07/05/2023 for differential and follow-up recommendations. 4. Mild increase in size since 2013 in a 1.4 cm lower thoracic left paraspinal nodule which favors a benign etiology and given location would favor schwannoma or peripheral nerve sheath tumor. 5. Persistent enlargement of the left pa
[2023-07-21] MEDS: METOPROLOL TARTRATE 25 MG TABLET PO ×2 (08:28→19:46)
[2023-07-21] MEDS: busPIRone HCL 10 MG TABLET PO ×2 (08:37→19:46)
[2023-07-21] MEDS: FAMOTIDINE 20 MG TABLET PO ×2 (08:37→18:38)
[2023-07-21] MEDS: amLODIPine BESYLATE 2.5 MG TABLET PO (08:37)
[2023-07-21 09:08] LABS: Band Neutrophils Percent 3 % (0-6); Burr Cells 1+ (NORMAL); Eosinophils Absolute Manual 0.27 K/mm3 (0.02-0.5); Eosinophils Percent Manual 3 % (0-4); Large Platelets Present; Lymphocytes Absolute Manual 1.26 K/mm3 (1.1-4.5); Metamyelocytes Percent 2 %; Monocytes Absolute Manual 0.99 K/mm3 (0.1-0.90); Monocytes Percent Manual 11 % (3-9); Myelocytes Percent 3 %; Neutrophils Absolute Manual 5.94 K/mm3 (1.7-7.2); Neutrophils Percent Manual 63 % (46-73); Plasma Cells 1; Platelet Estimate Adequate (Adequate); Poikilocytosis 1+ (NORMAL); Schistocytes None Seen (NORMAL); Total Cells Counted 100
--- NOTE | 2023-07-21 13:16 | PM.DS ---
DS: Admitting Diagnosis Discharge Date 07/21/23 Admitting Diagnosis ams DS: Discharge Diagnosis Discharge Diagnosis (1) Severe sepsis: Code(s): A41.9 - Sepsis, unspecified organism; R65.20 - Severe sepsis without septic shock Status: Acute Assessment and Plan: Patient is brought in from the residential with reports hematuria, worsening confusion, dysuria and agitation. Patient found to have severe sepsis with tachycardia, leukopenia, acute kidney injury, shock liver, low blood pressure and lactic acidosis. Chest x-ray did not show any acute cardiopulmonary disease. Urinalysis was consistent with UTI. CT of the abdomen pelvis showed mild periportal edema. She is status post cholecystectomy. Otherwise showing chronic persistent findings. Urine and blood cultures were collected. She was started on Rocephin. White count was 1.2K on admission but on repeat was 34K with 12% bandemia. Lactic acid was 5.5; normal now Acute kidney injury resolved. Urine output not accurate. No fevers. BCx growing ESBL Proteus in 2 bottles; UCx also has similar findings. Patient normally has hypertension and is on 2 medications for blood pressure. Blood pressure was soft but improved now. On meropenem. Narrow antibiotics to Invanz Patient has responded well to antibiotics. No obstructing lesions noted in the urinary system. No concerns for kidney abscess. Do not feel the need to repeat blood cultures since she is on appropriate antibiotics and is responding well. Awaiting insurance approval for ertapenem infusions at d/c (2) Urinary tract infection: Code(s): N39.0 - Urinary tract infection, site not specified Status: Acute Assessment and Plan: UA noted and consistent with UTI. Urine cultures growing ESBL Proteus. Blood cultures also growing ESBL Proteus. Renal US showing no concerning findings. Continue IV abx as mentioned above. (3) Hematuria: Code(s): R31.9 - Hematuria, unspecified Status: Acute Assessment and Plan: No obvious structural abnormalities noted on CT scan. Suspect hematuria related to cystitis from her UTI. This should resolve with above treatment. (4) Confusion associated with infection: Code(s): B99.9 - Unspecified infectious disease; R41.0 - Disorientation, unspecified Status: Acute Assessment and Plan: Patient has underlying dementia made worse due to sepsis. Mental status much better. Continue to follow (5) Acute kidney injury: Code(s): N17.9 - Acute kidney failure, unspecified Status: Acute Assessment and Plan: Creatinine 1.2 on admission. Her baseline creatinine is 0.5-0.8. Creatinine back to baseline. Stop IV fluids. (6) Elevated LFTs: Code(s): R79.89 - Other specified abnormal findings of blood chemistry Status: Acute Assessment and Plan: AST/ALT were mildly elevated on admission but then worsened. Her bilirubin levels up to 1.5. Abdominal ultrasound showed probably a small hemangioma of the liver but normal portal flow. No bile duct dilatation. Hepatitis panel negative. Suspect this is related to shock liver related to sepsis. LFTs trending down now. Follow (7) Neutropenia: Code(s): D70.9 - Neutropenia, unspecified Status: Acute Assessment and Plan: Resolved. Suspect related to overwhelming sepsis or possibly lab error. As above (8) Dementia: Code(s): F03.90 - Unspecified dementia, unspecified severity, without behavioral disturbance, psychotic disturbance, mood disturbance, and anxiety Status: Acute Assessment and Plan: Stable. Not on treatment at home. She may have chronic behavioral issues with her dementia. Continue Seroquel at night. (9) Hypertension: Qualifiers: Hypertension type: primary hypertension Qualified Code(s): I10 - Essential (primary) hypertension Code(s): I10 - Essential (prim
[2023-07-21 13:46] LABS: SARS-CoV-2 RNA PCR Negative (Negative)
[2023-07-21] MEDS: ERTAPENEM 1 GM/NS 50 ML 1 GM/50 ML BAG IVPB (14:28)
[2023-07-21] MEDS: QUEtiapine FUMARATE 25 MG TABLET PO (19:46)
== END 2023-07-21 20:32 | DRG 690 ==
LOC: ANHED 18:59 → ANH2MED 20:11
PROVIDERS: Emergency Medicine; Internal Medicine; Physician Assistant; Admitting Provider Hospitalist; Emergency Provider Nurse Practitioner; Visit Provider Student in an Organized Health Care Education/Training Program
DX: N39.0 Urinary tract infection, site not specified (principal); N17.9 Acute kidney failure, unspecified; Z16.12 Extended spectrum beta lactamase (ESBL) resistance; B96.4 Proteus (mirabilis) (morganii) as the cause of diseases classified elsewhere; R31.9 Hematuria, unspecified; K72.90 Hepatic failure, unspecified without coma; E78.5 Hyperlipidemia, unspecified; E04.1 Nontoxic single thyroid nodule; E86.0 Dehydration; E55.9 Vitamin D deficiency, unspecified; F03.90 Unspecified dementia, unspecified severity, without behavioral disturbance, psychotic disturbance, mood disturbance, and anxiety; I10 Essential (primary) hypertension; I34.0 Nonrheumatic mitral (valve) insufficiency; I95.9 Hypotension, unspecified; R13.10 Dysphagia, unspecified; Z20.822 Contact with and (suspected) exposure to COVID-19; Z90.49 Acquired absence of other specified parts of digestive tract; Z96.642 Presence of left artificial hip joint; Z66 Do not resuscitate; Z86.73 Personal history of transient ischemic attack (TIA), and cerebral infarction without residual deficits
CPT/HCPCS: 36415; 36569; 71045; 74177; 76705; 76775; 80053; 80074; 81001; 82948; 83605; 83735; 84100; 84145; 84439; 84443; 85025; 85055; 85610; 85730; 86140; 87040; 87077; 87086; 87088; 87186; 87493; 87635; 92526; 92610; 92611; 93306; 96361; 96365; 99285; A9270; J0696; J1335; J2185; J3480; J7030; J7042; J7120; Q9967

== ENCOUNTER 2023-09-13 13:05 | Inpatient (IN) | payer MEDICARE, SELFPAY ==
[2023-09-13] VITALS (16 sets, daily range): BP systolic 127–203; BP diastolic 79–107; PULSE 85–105; RESP 16–39; TEMP 36.6–37.2; O2SAT 96–100; BMI 16.9
--- NOTE | ~2023-09-13 | MR_ITS ---
EXAMINATION: MR brain/brain stem wo/w con DATE: 09/14/2023 15:35 INDICATION: Anisocoria. Altered mental status. TECHNIQUE: Magnetic resonance imaging (MRI) of the brain and brainstem was performed without and with 8 mL Multihance intravenous contrast. Sequences included sagittal and axial T1-weighted SE, axial di ffusion-weighted FS SE, axial T2*-weighted GRE, axial T2-weighted FLAIR, and axial T2-weighted FSE. P ostcontrast axial and coronal T1-weighted SE was obtained. Apparent diffusion coefficient (ADC) maps were created. COMPARISON: Head CT studies dated between 03/01/2023 and 09/13/2023 FINDINGS: There are no areas of restricted diffusion to suggest acute infarction. No intracranial hemorrhage. C hronic 12 x 9 x 8 mm T2 hyperintense, T1 isointense filling defect along the lateral wall of the occi pital horn of the right lateral ventricle which appears separate from the choroid plexus and which is without evident enhancement on the postcontrast images. To evident involvement of the brain deep to the wall of the ventricle. There are scattered areas of nonspecific increased T2-weighted signal inte nsity in the cerebral white matter, predominantly involving the deep and periventricular white matter . There are no intraparenchymal signal abnormalities seen on the other pulse sequences. The ventricle s are symmetric and normal in size. There are no abnormal extra-axial fluid collections. Flow voids a re seen in the cerebral arteries on the T2-weighted sequences consistent with their expected patency. Changes of bilateral intraocular lens replacement. Mild mucosal thickening in the ethmoid sinuses. T here are no areas of abnormal enhancement on the post contrast images. IMPRESSION: 1. No acute intracranial process. 2. 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 Given the lack of evident enhancement would favor subependymoma over meningioma. Lym phoma, metastatic disease were neuroblastoma would be unlikely given the relative stability and lack of significant enhancement. Reviewed, dictated and finalized at location A. R SELECTOR IMPRESSION: 1. No acute intracranial process. 2. 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 Given the lack of evident enhancement would favor subependymoma over meningioma. Lymphoma, metast atic disease were neuroblastoma would be unlikely given the relative stability and lack of significant enhancement.
--- NOTE | ~2023-09-13 | CT_ITS ---
EXAMINATION: CT brain wo con DATE: 09/13/2023 15:07 INDICATION: altered mental status . TECHNIQUE: Computed tomography (CT) of the head was performed without intravenous contrast. The mA wa s adjusted according to patient size. Iterative reconstruction technique was employed. The dose-lengt h product was 605.33 mGy-cm. COMPARISON: 06/06/2023. FINDINGS: No acute intracranial hemorrhage or extra-axial fluid collection. No hydrocephalus, mass, or herniation. No acute ischemic infarct. Unremarkable dural venous sinus attenuation. No acute osseous abnormality. The aerated spaces are clear. Mild atrophy and moderate chronic white matter change. Atherosclerotic intracranial calcification. Bi lateral lens replacements. IMPRESSION: No acute intracranial process. Reviewed, dictated and finalized at location K. WINDER
--- NOTE | ~2023-09-13 | XR_ITS ---
EXAMINATION: XR chest 1V DATE: 09/13/2023 15:07 INDICATION: Altered mental status. TECHNIQUE: A single frontal view of the chest was obtained. COMPARISON: Chest single view 07/15/2023 FINDINGS: There is mild elevation of left hemidiaphragm. The patient is rotated to her left. There is mild scarring at the lung apices. No pneumonia, pleural effusion, or pneumothorax. The heart size is normal. Surgical clips in the right upper quadrant are likely from cholecystectomy. IMPRESSION: 1. Stable mild scarring at the lung apices. Reviewed, dictated and finalized at location A. WARE CONFIGURATION ANALYST
--- NOTE | 2023-09-13 13:23 | ECG_ITS ---
Measurements Intervals [place] Rate: 101 P: 85 NV: 111 QRS: 61 QRSD: 77 T: -19 QT: 345 QTc: 449 Interpretive Statements SINUS TACHYCARDIA WITH SHORT NV INTERVAL LEFT ATRIAL ENLARGEMENT LEFT VENTRICULAR HYPERTROPHY AND ST-T CHANGE ST-T WAVE ABNORMALITY IN ANTEROLAT/INF LEADS- CONSIDER ISCHEMIA BASELINE ARTIFACT- II, III, AVF, V3-V5 ABNORMAL ECG COMPARED TO ECG 07/04/2023 23:03:01 SINUS TACHYCARDIA NOW PRESENT ST (T WAVE) DEVIATION NOW PRESENT Electronically Signed On 09-13-2023 13:59:19 TOLL COLLECTOR SUPERVISOR by Kiel Calderon D.O.
[2023-09-13 13:57] LABS: Basophils Absolute Auto 0.1 K/mm3 (0.0-0.1); Basophils Percent Auto 0.4 % (0.2-1.2); Hematocrit 45.5 % (37.0-47.0); Hemoglobin 14.4 g/dL (12.0-15.0); Immature Granulocyte Percent A 0.7 % (0-0.5); Lymphocytes Absolute Auto 1.35 K/mm3 (0.9-3.2); Lymphocytes Percent Auto 9.1 % (18.3-44.2); Mean Corpuscular HGB Conc 31.6 g/dl (32-36); Mean Corpuscular Hemoglobin 30.6 pg (26-34); Mean Corpuscular Volume 96.6 fl (80-100); Mean Platelet Volume 9.5 fl (7.4-10.4); Monocytes Absolute Auto 0.9 K/mm3 (0.1-0.6); Monocytes Percent Auto 6.2 % (2.6-8.5); Neutrophils Absolute Auto 12.5 K/mm3 (1.3-6.7); Neutrophils Percent Auto 83.6 % (45.5-73.1); Platelet Count Result 254 k/mm3 (150-375); Red Blood Count 4.71 M/mm3 (4.2-5.4); Red Cell Distribution Width 14.8 % (11.5-14.5); White Blood Count 14.9 K/mm3 (4.5-10.0)
[2023-09-13 14:08] LABS: Alanine Aminotransferase 18 U/L (6-35); Albumin Level 4.5 g/dL (3.5-5.1); Alkaline Phosphatase 133 U/L (38-126); Anion Gap 14 mmol/L (8-16); Aspartate Amino Transferase 37 U/L (14-36); Bilirubin,Total 1.1 mg/dL (0.2-1.3); Blood Urea Nitrogen 35 mg/dL (7-17); Calcium 9.7 mg/dL (8.4-10.2); Carbon Dioxide 27 mmol/L (22-30); Chloride 113 mmol/L (98-107); Estimated CRCL calculation 36 ml/min; Estimated Glomerular Filt Rate > 60; Glucose 109 mg/dL (65-110); Potassium 4.3 mmol/L (3.4-5.0); Sodium 154 mmol/L (137-145)
[2023-09-13 14:09] LABS: Lactic Acid Reflex 2.2 mmol/L (0.7-2.0)
[2023-09-13 14:09] LABS: INR 1.1; Prothrombin Time 14.2 Seconds (11.1-14.7)
[2023-09-13 14:10] LABS: Partial Thromboplastin Time 29.6 SECONDS (22.3-36.8)
[2023-09-13 14:30] LABS: Appearance Urine Clear (Clear); Bacteria Urine None Seen /hpf; Bilirubin Urine Negative (Negative); Blood Urine Negative (Negative); Color Urine Yellow (Yellow); Glucose Urine UA Negative (Negative); Hyaline Casts Urine Present /lpf; Ketones Urine 1+ mg/dL (Negative); Leukocyte Esterase Ur Negative LEU/UL (Negative); Nitrate Urine Negative (Negative); Protein Urine 1+ mg/dL (Negative); RBC Urine 0-2 /hpf (0-2); Squamous Epithelial Cell Urine None seen /hpf (Few); WBC Urine 0-5 /hpf; pH Urine 5.5 (5.0-9.0)
[2023-09-13 14:34] LABS: Add Urine Microscopic? YES
[2023-09-13 14:34] LABS: Influenza A QL RT-PCR Negative (Negative); Influenza B QL RT-PCR Negative (Negative); RSV RNA, RT-PCR Negative (Negative); SARS-CoV-2 RNA PCR Negative (Negative)
[2023-09-13] MEDS: SODIUM CHLORIDE 0.9% IV 1,000 ML 999 ML IV CONT (15:38)
--- NOTE | 2023-09-13 16:45 | ED.GENADULT ---
HPI - General Adult General Chief complaint: Altered Mental Status Stated complaint: AMS Time Seen by Provider: 09/13/23 13:56 History of Present Illness HPI narrative: Patient is an 83-year-old female who presents ER with being less responsive than typical. Patient has significant dementia at baseline. Recently diagnosed with UTI and has been being treated. Finished antibiotics yesterday according to the son who showed up later. No reports of fall or injury. Son reports patient has not been eating or drinking over the last 2-3 days that anything put in her mouth falls out. Related Data Home Medications Medication Instructions Recorded Confirmed quetiapine 25 mg tablet 25 mg PO QHS 06/29/23 08/24/23 acetaminophen 500 mg tablet 1,000 mg PO Q6H PRN Pain 07/15/23 08/24/23 brexpiprazole 0.5 mg tablet 0.5 mg PO DAILY 07/16/23 08/24/23 (Rexulti) buspirone 10 mg tablet 10 mg PO BID 07/16/23 08/24/23 aspirin 81 mg capsule 81 mg PO DAILY 08/24/23 08/24/23 Allergies Allergy/AdvReac Type Severity Reaction Status Date / Time hydralazine Allergy Unknown Verified 09/13/23 13:32 hydrocodone Allergy Unknown Verified 09/13/23 13:32 sulfamethoxazole Allergy Unknown Verified 09/13/23 13:32 trimethoprim Allergy Unknown Verified 09/13/23 13:32 Review of Systems Review of Systems: ROS unobtainable: Yes unobtainable due to mental status PMFSH Past Medical History Medical History Dementia Hypertension Hyperthyroidism Status post radioactive iodine ablation. Low vitamin D level Severe mitral regurgitation Thyroid nodule TIA (transient ischemic attack) Surgical History Surgical History History of cholecystectomy History of laparoscopic appendectomy History of partial replacement of left hip joint using bipolar prosthesis (04/2023) April 2023 History of tonsillectomy and adenoidectomy Family History Family History Father Thyroid cancer Mother Arthritis Sibling Agent [place] poisoning Leukemia Other Diabetes mellitus Hypertension Social History Social History Social History: Surrogate medical decision maker: Rob Ortiz (son) or Nereida Whipple (daughter). Code status: Do not resuscitate Smoking status: Never smoker Second hand tobacco smoke exposure: Yes Additional smoking assessment comments: patient alert and oriented x 0 Alcohol intake: never Substance use: never Substance use type: does not use Lack of Transportation: No Lack of Food: Never True Current Housing: I Have Housing Concerned About Future Housing: No Difficulty Paying Gas/Electric Bills: No Difficulty Paying for Meds: No Currently Unemployed: No Education: High School Diploma/GED Difficulty w/ Childcare or Family Care: No Living arrangements: jail Additional living arrangements comments: [facility]. She has 3 children. 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 Spiritual care concerns: No Exam Narrative: GENERAL: Chronically ill-appearing, well-nourished, and in no acute distress. HEAD: Normocephalic, atraumatic. EYES: PERRL and EOMI. ENT: Dry mucous membranes. CHEST: Clear to auscultation. No respiratory distress. HEART: Regular rate and rhythm. Harsh murmur. Normal peripheral pulses. ABDOMEN: Soft, nontender, nondistended. SKIN: Warm, dry, no rash. NEURO: Awake alert, follows physician with eyes, does not follow commands. Course Course Emergency Course: Patient with significant dehydration given hypernatremia and elevated BUN. Patient also with elevated white blood cell count/respiratory/heart rate. Will continue to hydrate and we initiate antibiotics.
[2023-09-13 16:54] LABS: Reflex Lactic Acid Yes or No Add Lactic
[2023-09-13 17:34] LABS: Lactic Acid 1.4 mmol/L (0.7-2.0)
[2023-09-13] MEDS: SODIUM CHLORIDE 0.9% IV 1,000 ML 125 ML IV CONT (19:28)
--- NOTE | 2023-09-13 20:13 | ADMGEN ---
This patient, Gege Ortiz, was admitted to IMU Room 205-02. Patient/family oriented to hospital policies and general routines including ID bracelet, bed and alarms, visiting hours, pain management, procedures, bathroom and other care routines, personal items, smoking policy, room service/diet, and visiting hours. Information on how to activate the Rapid Response Team has been discussed. Patient/Family are encouraged to report perceived risks to care and to ask questions if they do not understand what they are told or what they should do.
--- NOTE | 2023-09-13 21:32 | PM.IMHP ---
H&P: HPI History of Present Illness Date/Time: 09/13/23 21:32 Chief Complaint: n/v Narrative: This is an 83-year-old female with past medical history significant for dementia, hypertension, hyperthyroidism, severe mitral regurg. Patient was brought to the emergency room due to altered mental status not been her usual patient has advanced dementia has had poor per orally intake. History has been obtained upon reviewing medical records. Patient just recently treated for urinary tract infection concluded antibiotic a day before however has been extremely weak and lethargic as per . Preliminary workup showed a WBC with a leukocyte count of 14,000, a repeat urinalysis was normal, patient tested negative for influenza type A influenza type B RSV and COVID-19. Patient has been admitted for further evaluation management and treatment. EXAMINATION: CT brain wo con DATE: 09/13/2023 15:07 INDICATION: altered mental status . TECHNIQUE: Computed tomography (CT) of the head was performed without intravenous contrast. The mA was adjusted according to patient size. Iterative reconstruction technique was employed. The dose-length product was 605.33 mGy-cm. COMPARISON: 06/06/2023. FINDINGS: No acute intracranial hemorrhage or extra-axial fluid collection. No hydrocephalus, mass, or herniation. No acute ischemic infarct. Unremarkable dural venous sinus attenuation. No acute osseous abnormality. The? aerated spaces are clear. Mild atrophy and moderate chronic white matter change. Atherosclerotic intracranial calcification. Bilateral lens replacements. IMPRESSION:? No acute intracranial process. EXAMINATION: XR chest 1V DATE: 09/13/2023 15:07 INDICATION: Altered mental status. TECHNIQUE: A single frontal view of the chest was obtained. COMPARISON: Chest single view 07/15/2023 FINDINGS: There is mild elevation of left hemidiaphragm. The patient is rotated to her left. There is mild scarring at the lung apices. No pneumonia, pleural effusion, or pneumothorax. The heart size is normal. Surgical clips in the right upper quadrant are likely from cholecystectomy. IMPRESSION: 1. Stable mild scarring at the lung apices. Review of Systems Review of Systems: nv ROS unobtainable: Yes unobtainable due to mental status (lethargy, confusion.) [facility] Past Medical History Medical History (Updated 09/14/23 @ 14:07 by Tessa Corbtet MD) Anisocoria Dementia Hypertension Hyperthyroidism Status post radioactive iodine ablation. Low vitamin D level Severe mitral regurgitation Thyroid nodule TIA (transient ischemic attack) Surgical History Surgical History History of cholecystectomy History of laparoscopic appendectomy History of partial replacement of left hip joint using bipolar prosthesis (04/2023) April 2023 History of tonsillectomy and adenoidectomy Family History Family History Father Thyroid cancer Mother Arthritis Sibling Agent [place] poisoning Leukemia Other Diabetes mellitus Hypertension Social History Social History Social History: Surrogate medical decision maker: Rob Ortiz (son) or Nereida Whipple (daughter). Code status: Do not resuscitate Smoking status: Unknown if ever smoked Second hand tobacco smoke exposure: Yes Additional smoking assessment comments: patient alert and oriented x 0 Alcohol intake: never Substance use: never Substance use type: does not use Lack of Transportation: No Lack of Food: Never True Current Housing: I Have Housing Concerned About Future Housing: No Difficulty Paying Gas/Electric Bills: No Difficulty Paying for Meds: No Currently Unemployed: No Education: High School Diploma/GED Difficulty w/ Child
[2023-09-13] MEDS: ENALAPRILAT 1.25 MG/ML VIAL 2.5 MG IV PUSH (23:49)
[2023-09-14] VITALS (19 sets, daily range): BP systolic 114–161; BP diastolic 65–99; PULSE 80–106; RESP 16–24; TEMP 35.9–38.2; O2SAT 96–100; BMI 16.9
[2023-09-14] MEDS: DEXTROSE 5% IN WATER 500 ML 65 ML IV CONT ×3 (03:19→18:25)
[2023-09-14 03:48] LABS: Anion Gap 12 mmol/L (8-16); Blood Urea Nitrogen 26 mg/dL (7-17); Calcium 8.8 mg/dL (8.4-10.2); Carbon Dioxide 22 mmol/L (22-30); Chloride 118 mmol/L (98-107); Estimated CRCL calculation 37 ml/min; Estimated Glomerular Filt Rate > 60; Glucose 91 mg/dL (65-110); Magnesium 2.6 mg/dL (1.6-2.3); Phosphorus 2.5 mg/dL (2.5-4.5); Potassium 3.5 mmol/L (3.4-5.0); Sodium 152 mmol/L (137-145)
--- NOTE | 2023-09-14 14:05 | PM.IMPN ---
Progress Note: A&P Assessment and Plan (1) Dehydration: Code(s): E86.0 - Dehydration Status: Acute (2) Acute hypernatremia: Code(s): E87.0 - Hyperosmolality and hypernatremia Status: Acute (3) Elevated LFTs: Code(s): R79.89 - Other specified abnormal findings of blood chemistry Status: Acute (4) Anisocoria: Code(s): H57.02 - Anisocoria Status: Acute (5) Altered mental status: Code(s): R41.82 - Altered mental status, unspecified Status: Acute Plan 83F w/ PMH HTN, hyperthyroidism, advanced dementia, vit d deficiency, mitral regurgitation, TIA, who resides at residential presented as she was more confused than usual, not speaking and not taking food. Admitted on 09/13 for AMS and further workup 1) acute encephalopathy w/ history of dementia - wide workup ensuing, if no improvement and no reversible cause, will have to start hospice/comfort care discussions with family - unclear etiology, consider LP. the patient was being treated for UTI. UA on admission clear, urine culture pending. cont ceftriaxone for now. CXR clear. pending blood cultures. leukocytosis, will trend with procal - CT head negative. pending MRI, considering neurology consult as well based on findings - check TSH w/ reflex, drug screen, ammonia, salicylates, acetaminophen, b12 - could be 2/2 dehydration and recrudescence of old insult - neuro checks, fall precautions. consider therapy if she becomes more active 2) dehydration, hypernatremia - dry mouth, history of poor intake, elevated BUN - D5W, trend sodium, coming down since treatment in ER 3) hx of HTN - hold home meds. uncontrolled but responsive to IV meds. labetalol PRN FEN: NPO, D5W GI prophylaxis: protonix IV DVT prophylaxis: SCD's. hold AC pending workup Lines: pIV Code Status: DNR Dispo: guarded, but stable More than 35 minutes spent on chart review, patient interaction and assessment and plan. Subjective Date/time seen: 09/14/23 14:05 Interval history: around 1400 nurse reports she has unequal pupils. pt is non verbal, barely follows commands, but tracks with eyes. she did not appear in distress Review of Systems Review of Systems: All systems reviewed & are unremarkable except as noted in HPI and below Exam Const: General: comfortable and no acute distress Other: non verbal, confused dry MM Eyes: Other: L pupil 4mm reactive to light. R pupil 3mm reactive to light Resp: Auscultation: clear to auscultation bilaterally Cardio: Rate: regular rate Rhythm: regular rhythm Heart sounds: no gallops, no murmurs and no rubs GI: GI Palp: Yes Soft to palpation and No Tenderness to palpation present (GI) Extrem: General: no edema Objective Data Vital Signs Vital Signs: Vital Signs - 24 hr 09/13/23 14:31 09/13/23 15:10 09/13/23 15:31 Temperature Pulse Rate 85 91 96 Respiratory Rate 33 H 18 39 H Blood Pressure 127/79 161/95 H 181/86 H Pulse Oximetry 97 98 Oxygen Delivery 09/13/23 16:01 09/13/23 16:31 09/13/23 17:01 Temperature Pulse Rate 96 99 87 Respiratory Rate 28 H 27 H 21 H Blood Pressure 179/96 H 190/85 H 161/91 H Pulse Oximetry 98 98 97 Oxygen Delivery 09/13/23 17:31 09/13/23 18:03 09/13/23 19:23 Temperature Pulse Rate 99 97 99 Respiratory Rate 18 20 20 Blood Pressure 184/90 H 171/88 H 180/106 H Pulse Oximetry 98 98 97 Oxygen Delivery 09/13/23 20:47 09/13/23 21:00 09/13/23 23:06 Temperature 98 F 99 F Pulse Rate 98 100 Respiratory Rate 16 16 Blood Pressure 173/95 H 177/87 H Pulse Oximetry 97 98 Oxygen Delivery Room Air 09/13/23 20:22 09/13/23 23:22 09/14/23 00:00 Temperature Pulse Rate 94 100 Respiratory Rate Blood Pressure Pulse Oximetry Oxygen Delivery Room Air 09/14/23 00:00 09/14/23 02:00 09/14/23 04:00 Temperature 100.8 F H Pulse Rate 102 H 80 100 Respiratory Rate 16 Blood Pressure 142/79 H Pulse Oximetr
--- NOTE | 2023-09-14 14:11 | PC.NURSE ---
BP 161/99. Dr. Pak made aware.
[2023-09-14] MEDS: PANTOPRAZOLE SODIUM IV 40 MG VIAL IV PUSH (14:54)
[2023-09-14 15:19] LABS: Acetaminophen < 10 ug/mL (10-30); Ammonia 12 umol/L (9-30); Salicylate < 1.0 mg/dL (2-20)
[2023-09-14 15:23] LABS: Anion Gap 9 mmol/L (8-16); Blood Urea Nitrogen 25 mg/dL (7-17); Carbon Dioxide 27 mmol/L (22-30); Chloride 112 mmol/L (98-107); Estimated CRCL calculation 37 ml/min; Estimated Glomerular Filt Rate > 60; Glucose 116 mg/dL (65-110); Potassium 3.3 mmol/L (3.4-5.0); Sodium 148 mmol/L (137-145)
[2023-09-14 15:54] LABS: Thyroid Stimulating Hormone Reflex 0.263 uIU/mL (0.465-4.68)
[2023-09-14 21:24] LABS: Free T4 Free Thyroxine Reflex 0.96 ng/dL (0.78-2.19)
[2023-09-14 22:19] LABS: Total Triiodothyronine (T3) 0.71 NG/ML (0.97-1.69)
[2023-09-14 22:24] LABS: Amphetamine Screen Urine Negative (Negative); Barbiturate Screen Urine Negative (Negative); Benzodiazepines Screen Urine Negative (Negative); Cannabinoid Screen Urine Negative (Negative); Cocaine Screen Urine Negative (Negative); Methadone Screen Urine Negative (Negative); Opiate Screen Urine Negative (Negative); Phencyclidine Screen Urine Negative (Negative)
[2023-09-15] VITALS (11 sets, daily range): BP systolic 155–164; BP diastolic 50–98; PULSE 75–115; RESP 15–20; TEMP 36.3–36.7; O2SAT 97–100
[2023-09-15] MEDS: DEXTROSE 5% IN WATER 500 ML 65 ML IV CONT (04:29)
[2023-09-15 05:38] LABS: Basophils Absolute Auto 0.1 K/mm3 (0.0-0.1); Basophils Percent Auto 0.6 % (0.2-1.2); Eosinophils Absolute Auto 0.4 K/mm3 (0-0.3); Eosinophils Percent Auto 3.4 % (0-4.4); Hematocrit 44.1 % (37.0-47.0); Hemoglobin 13.7 g/dL (12.0-15.0); Immature Granulocyte Absolute 0.08 K/mm3 (0.00-0.031); Immature Granulocyte Percent A 0.7 % (0-0.5); Lymphocytes Absolute Auto 1.42 K/mm3 (0.9-3.2); Lymphocytes Percent Auto 12.2 % (18.3-44.2); Mean Corpuscular HGB Conc 31.1 g/dl (32-36); Mean Corpuscular Hemoglobin 30.2 pg (26-34); Mean Corpuscular Volume 97.4 fl (80-100); Monocytes Absolute Auto 0.9 K/mm3 (0.1-0.6); Monocytes Percent Auto 7.4 % (2.6-8.5); Neutrophils Absolute Auto 8.8 K/mm3 (1.3-6.7); Neutrophils Percent Auto 75.7 % (45.5-73.1); Platelet Count Result 243 k/mm3 (150-375); Red Blood Count 4.53 M/mm3 (4.2-5.4); Red Cell Distribution Width 14.6 % (11.5-14.5); White Blood Count 11.6 K/mm3 (4.5-10.0)
[2023-09-15 05:45] LABS: Alanine Aminotransferase 14 U/L (6-35); Alkaline Phosphatase 106 U/L (38-126); Anion Gap 7 mmol/L (8-16); Aspartate Amino Transferase 34 U/L (14-36); Bilirubin,Total 1.1 mg/dL (0.2-1.3); Blood Urea Nitrogen 26 mg/dL (7-17); Carbon Dioxide 27 mmol/L (22-30); Chloride 108 mmol/L (98-107); Estimated CRCL calculation 40 ml/min; Estimated Glomerular Filt Rate > 60; Glucose 124 mg/dL (65-110); Magnesium 2.4 mg/dL (1.6-2.3); Phosphorus 2.5 mg/dL (2.5-4.5); Potassium 3.3 mmol/L (3.4-5.0); Sodium 142 mmol/L (137-145)
[2023-09-15 06:21] LABS: Procalcitonin 0.1 ng/mL
[2023-09-15] MEDS: PANTOPRAZOLE SODIUM IV 40 MG VIAL IV PUSH (09:50)
--- NOTE | 2023-09-15 12:11 | P.CDI_ITS ---
Moderate protein calorie malnutrition? CDI Query Clarification Request BMI 16.9 Nutritional Diagnostic Statement Moderate protein calorie malnutrition related to inadequate energy intake as evidenced by Pt has not had PO intake for several days per h&p, noted significant weight loss of -12% x 2 months, and NFPE findings. Please refer to the comprehensive nutrition assessment for further information. Please clarify severity of protein calorie malnutrition if known: * Mild * Moderate * Severe * Other/ unspecified
--- NOTE | 2023-09-15 14:40 | PM.IMPN ---
Progress Note: A&P Assessment and Plan (1) Altered mental status: Code(s): R41.82 - Altered mental status, unspecified Status: Acute Plan dobbs workup negative so far. son does not want to pursue further aggressive workup or therapy. it was the patient's wishes to be DNR and stop therapy if she did not have a good quality of life advanced vascular dementia, terminal. hospice consult pending, care coordinators contacted. comfort measures only DNR Subjective Date/time seen: 09/15/23 14:40 Interval history: no change in status. son is in the room today. he was very much prepared for this day, verbalizing her decline over months. he is adamant we should not provide further therapy and place the patient on comfort as that would have been her wishes Review of Systems Review of Systems: All systems reviewed & are unremarkable except as noted in HPI and below Exam Const: General: comfortable Other: non verbal, no change from day prior Eyes: Pupils: Equal, round and reactive pupils present Resp: Effort & Inspection: normal respiratory effort Auscultation: no crackles Cardio: Rate: tachycardic Rhythm: regular rhythm Heart sounds: no gallops, no murmurs and no rubs GI: GI Palp: Yes Soft to palpation Extrem: General: no edema Objective Data Vital Signs Vital Signs: Vital Signs - 24 hr 09/14/23 16:00 09/14/23 16:35 09/14/23 16:00 Temperature 97.1 F L Pulse Rate 90 88 Respiratory Rate 20 Blood Pressure 128/75 Pulse Oximetry 99 Oxygen Delivery Room Air 09/14/23 18:00 09/14/23 19:59 09/14/23 20:00 Temperature 97.0 F L Pulse Rate 106 H 98 Respiratory Rate 20 Blood Pressure 153/87 H Pulse Oximetry 99 Oxygen Delivery Room Air 09/14/23 23:51 09/15/23 00:00 09/14/23 20:00 Temperature 97.5 F L Pulse Rate 86 101 H Respiratory Rate 20 Blood Pressure 114/65 Pulse Oximetry 100 Oxygen Delivery Room Air 09/14/23 22:00 09/15/23 00:00 09/15/23 02:00 Temperature Pulse Rate 102 H 75 75 Respiratory Rate Blood Pressure Pulse Oximetry Oxygen Delivery 09/15/23 04:00 09/15/23 04:00 09/15/23 04:00 Temperature 97.4 F L Pulse Rate 98 94 Respiratory Rate 20 Blood Pressure 155/50 H Pulse Oximetry 99 Oxygen Delivery Room Air 09/15/23 06:00 09/15/23 08:00 09/15/23 08:00 Temperature 98.0 F Pulse Rate 114 H 110 H Respiratory Rate 16 Blood Pressure 159/89 H Pulse Oximetry 100 Oxygen Delivery Room Air 09/15/23 08:00 09/15/23 10:00 09/15/23 11:47 Temperature 97.9 F Pulse Rate 99 110 H 115 H Respiratory Rate 15 Blood Pressure 164/88 H Pulse Oximetry 98 Oxygen Delivery 09/15/23 12:00 09/15/23 14:00 09/15/23 12:00 Temperature Pulse Rate 112 H 113 H Respiratory Rate Blood Pressure Pulse Oximetry Oxygen Delivery Room Air Intake/Output Intake/Output: Intake & Output 09/12/23 09/13/23 09/14/23 09/15/23 23:59 23:59 23:59 23:59 Intake Total 1050 1950 500 Output Total 100 100 Balance 950 1950 400 Meds/Results Medications: Active Medications Generic Name Dose Route Start Last Admin Trade Name Freq PRN Reason Stop Dose Admin Lorazepam 1 mg 09/15/23 14:37 Lorazepam Inj (*Crx) 2 Mg/Ml Vial IV PUSH Q6H PRN Anxiety Ondansetron HCl 4 mg 09/13/23 16:55 Ondansetron Inj 4 Mg/2 Ml Vial IV PUSH Q4H PRN Nausea Scopolamine 1.5 mg 09/15/23 14:37 Scopolamine 1.5 Mg Patch TRANSDERM Q72HR PRN Secretions Radiology Results: ITS Impressions Head CT 09/13/23 15:09 IMPRESSION: No acute intracranial process. Chest X-Ray 09/13/23 15:14 IMPRESSION: 1. Stable mild scarring at the lung apices. Brain MRI 09/14/23 16:21 IMPRESSION: 1. No acute intracranial process. 2. 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
--- NOTE | 2023-09-15 15:36 | PM.DS ---
DS: Admitting Diagnosis Discharge Date 09/15/23 Admitting Diagnosis altered mental status DS: Discharge Diagnosis Discharge Diagnosis (1) Altered mental status: Code(s): R41.82 - Altered mental status, unspecified Status: Acute (2) Dementia: Code(s): F03.90 - Unspecified dementia, unspecified severity, without behavioral disturbance, psychotic disturbance, mood disturbance, and anxiety Status: Acute DS: Summary Hospital Course Hospital Course: 83F w/ vascular dementia had falls and altered mental status at long term. workup was unrevealing. her vascular dementia has advanced and after discussion the son elected to place patient on hospice/comfort care MRI brain w/o acute findings. DNR Time Spent with Patient Time attestation: Total time spent providing and/or coordinating discharge services: DS: Data Data Completed and Pending Labs on day of discharge: Labs from last 24 hours 09/15/23 09/14/23 09/14/23 05:19 21:35 14:54 WBC 11.6 H RBC 4.53 Hgb 13.7 Hct 44.1 MCV 97.4 MCH 30.2 MCHC 31.1 L RDW 14.6 H Plt Count 243 MPV 10.0 Immature Gran % (Auto) 0.7 H Neut % (Auto) 75.7 H Lymph % (Auto) 12.2 L [place] % (Auto) 7.4 Eos % (Auto) 3.4 Baso % (Auto) 0.6 Lymph # (Auto) 1.42 [place] # (Auto) 0.9 H Eos # (Auto) 0.4 H Baso # (Auto) 0.1 Abs Immat Gran (auto) 0.08 H Absolute Neuts (auto) 8.8 H Absolute Nucleated RBC 0.0 Nucleated RBC % 0.0 Sodium 142 Potassium 3.3 L Chloride 108 H Carbon Dioxide 27 Anion Gap 7 L BUN 26 H Creatinine 0.60 L Estim Creat Clear Calc 40 Estimated GFR > 60 Glucose 124 H Calcium 9.0 Phosphorus 2.5 Magnesium 2.4 H Total Bilirubin 1.1 AST 34 ALT 14 Alkaline Phosphatase 106 Total Protein 8.0 Albumin 4.0 Vitamin B12 318.0 Procalcitonin 0.1 TSH (Reflex) 0.263 L Free T4 0.96 Total T3 0.71 L Urine Opiates Screen Negative Urine Methadone Screen Negative Ur Barbiturates Screen Negative Ur Phencyclidine Scrn Negative Ur Amphetamine Screen Negative U Benzodiazepines Scrn Negative Urine Cocaine Screen Negative U Cannabinoids Screen Negative Preliminary micro results at discharge 09/13/23 17:15 Blood Culture - Preliminary Blood 09/13/23 17:15 Blood Culture - Preliminary Blood Discharge Plan Discharge Attending physician on discharge: Tessa Corbett Discharging Clinician: Tessa Corbett Patient Disposition: Hospice - Medical Facility Activity: february shower Diet: NPO Discharge Instructions: dc'ed back to her long term for comfort care/ hospice Stand Alone Forms: General Discharge Information Discharge Medications: Discontinued quetiapine 25 mg tablet 25 mg PO QHS aspirin 81 mg capsule 81 mg PO DAILY amlodipine 2.5 mg Tablet 2.5 mg PO QAM Qty: 30 0RF acetaminophen 500 mg tablet 1,000 mg PO Q6H PRN (Reason: pain or fever) buspirone 10 mg tablet 10 mg PO BID Rexulti 0.5 mg tablet 0.5 mg PO DAILY famotidine [Pepcid] 20 mg tablet 20 mg PO BID metoprolol tartrate 25 mg tablet 25 mg PO BID Qty: 180 3RF Date of admission: 09/14/23 09:45 Primary Care Provider: Edward Barney Admitting Provider: Rosalind Doe Attending physician on admission: Rosalind Doe Condition: Stable
[2023-09-15 16:55] LABS: Influenza A QL RT-PCR Negative (Negative); Influenza B QL RT-PCR Negative (Negative); SARS-CoV-2 RNA PCR Negative (Negative)
--- NOTE | 2023-09-15 17:22 | PC.NURSE ---
Called [facility] at [phone] at [phone], [phone], and [phone] with no answer. Spoke with Michael Ortiz, son of patient, who reports that he has spoken with Rual, managing manager at facility, who confirms facility is aware that pt is coming. Michael reports that the facility often is unable to answer the phone in the evening. Unable to give report due to facility not answering phone.
--- NOTE | 2023-09-15 19:17 | PC.NURSE ---
Report given to AURE Carranza, at [facility].
== END 2023-09-15 20:10 | disposition hospice, home (50) | DRG 641 ==
LOC: ANHED 17:21 → ANHIMU 17:54
PROVIDERS: Internal Medicine; Admitting Provider Student in an Organized Health Care Education/Training Program; Emergency Provider Emergency Medicine; PCP Family Medicine; Visit Provider General Practice
DX: E87.0 Hyperosmolality and hypernatremia (principal); E44.0 Moderate protein-calorie malnutrition; Z68.1 Body mass index [BMI] 19.9 or less, adult; N39.0 Urinary tract infection, site not specified; F01.50 Vascular dementia, unspecified severity, without behavioral disturbance, psychotic disturbance, mood disturbance, and anxiety; E86.0 Dehydration; I34.0 Nonrheumatic mitral (valve) insufficiency; I10 Essential (primary) hypertension; E05.80 Other thyrotoxicosis without thyrotoxic crisis or storm; E55.9 Vitamin D deficiency, unspecified; E04.1 Nontoxic single thyroid nodule; H57.02 Anisocoria; Z20.822 Contact with and (suspected) exposure to COVID-19; Z96.642 Presence of left artificial hip joint; Z11.52 Encounter for screening for COVID-19; Z79.82 Long term (current) use of aspirin; Z86.73 Personal history of transient ischemic attack (TIA), and cerebral infarction without residual deficits; Z51.5 Encounter for palliative care
CPT/HCPCS: 36415; 70450; 70553; 71045; 80048; 80053; 80307; 81001; 82140; 82607; 83605; 83735; 84100; 84145; 84439; 84443; 84480; 85025; 85610; 85730; 87040; 87086; 87636; 87637; 93005; 96361; 96365; 96375; 99285; A9577; C9113; G0378; J0696; J7030; J7060